=== PATIENT | male | born 1935 | race Caucasian/White ===

== ENCOUNTER 2020-02-05 11:52 | Inpatient (IN) | payer MEDICARE, SELFPAY ==
[2020-02-05] VITALS (8 sets, daily range): BP systolic 120–176; BP diastolic 51–78; PULSE 33–48; RESP 16–20; TEMP 36.4–36.8; O2SAT 95–98; BMI 28.6
--- NOTE | 2020-02-05 | ECHO_ITS ---
Patient Info Name: Torito Mcleod Age: 85 years : 1935 Gender: Male Ht: 72 in Wt: 214 lbs BSA: 2.24 m2 HR: 40 bpm BP: 168 / 70 mmHg Heart Rhythm: Bradycardia, Atrial Fibrillation Technical Quality: Good Exam Date: 02/05/2020 3:29 PM Exam Location: [facility] Pulmonary Patient Status: Inpatient Admit Date: 02/05/2020 Staff Ordering Physician: Faustino Grimes MD Seat Maker: Ab Lyle NIYA Attending Provider: Josh Griffin MD Exam Type: CA echo dop color flow w con Study Info Indications I50.9 - Heart failure, unspecified Complete two-dimensional, color flow and Doppler transthoracic echocardiogram is performed. Contrast/Agitated Saline Contrast/Ag. Saline: Definity Amount: 3.00 ml Administered By: Eugenio Kennedy RN Existing IV Access: Yes History/Risk Factors Bradycardia, Afib, CHF; CAD s/p CABG 2000, HTN, edema. Summary 1. Left ventricular chamber dimension is moderately enlarged. 2. Left ventricular systolic function is moderately reduced, estimated at 35-40%. 3. There is mildly increased left ventricular wall thickness. 4. Left ventricular septal wall motion is abnormal with septal motion related to bundle branch block. 5. The left ventricular diastolic function is grade II diastolic dysfunction. 6. The inferior wall, inferoseptal wall, basal anteroseptal, mid anteroseptal, basal inferolateral wall, and mid inferolateral wall are hypokinetic. 7. Left atrial chamber dimension is moderately enlarged. 8. Right atrial chamber dimension is mildly enlarged. 9. There is mild aortic valve calcification. 10. There is mild mitral valve regurgitation. 11. Severe pulmonary hypertension, estimated pulmonary arterial systolic pressure is 69 mmHg. 12. There is mild tricuspid valve regurgitation. 13. There is mild pulmonic regurgitation. Left Ventricle Left ventricular chamber dimension is moderately enlarged. Left ventricular systolic function is moderately reduced, estimated at 35-40%. There is mildly increased left ventricular wall thickness. Left ventricular septal wall motion is abnormal with septal motion related to bundle branch block. The left ventricular diastolic function is grade II diastolic dysfunction. The inferior wall, inferoseptal wall, basal anteroseptal, mid anteroseptal, basal inferolateral wall, and mid inferolateral wall are hypokinetic. All other cancino appear normal. Right Ventricle Right ventricular chamber dimension is normal. Right ventricular systolic function is normal. Left Atria Left atrial chamber dimension is moderately enlarged. Right Atria Right atrial chamber dimension is mildly enlarged. Atrial Septum Intact interatrial septum visualized by color flow imaging. Aortic Valve The aortic valve is trileaflet. There is no aortic valve stenosis. There is trace aortic valve regurgitation. There is mild aortic valve calcification. Pulmonic Valve The pulmonic valve is normal. There is no pulmonic valve stenosis. There is mild pulmonic regurgitation. Mitral Valve The mitral valve has thickened leaflets. There is no mitral valve stenosis. There is mild mitral valve regurgitation. Tricuspid Valve The tricuspid valve leaflets are normal. There is no significant tricuspid valve stenosis. There is mild tricuspid valve regurgitation. Severe pulmonary hypertension, estimated pulmonary arterial systolic pressure is 69 mmHg. Siri
--- NOTE | ~2020-02-05 | XR_ITS ---
EXAMINATION: XR chest 1V portable DATE: 02/08/2020 15:36 INDICATION: Pacemaker insertion. TECHNIQUE: A single frontal view of the chest was obtained on 2 radiographs. COMPARISON: Chest 2 views 02/05/2020 FINDINGS: There are small pleural effusions. There are airspace opacities at the lung bases. No pneum othorax. Cardiomegaly is noted. Median sternotomy wires and mediastinal surgical clips are seen, like ly from prior coronary artery bypass grafting. There is a left chest pacer with lead in right ventric le. IMPRESSION: 1. Stable small pleural effusions. 2. Stable airspace opacities at the lung bases, consistent with atelectasis or less likely pneumonia. 3. Cardiomegaly. Reviewed, dictated and finalized at location B.
--- NOTE | ~2020-02-05 | US_ITS ---
EXAMINATION: US venous doppler [facility] DATE: 02/06/2020 12:08 INDICATION: Lower limb swelling TECHNIQUE: Grayscale ultrasound images without and with compression and Doppler ultrasound images of the bilateral lower extremity veins were obtained. COMPARISON: None. FINDINGS: The visualized portions of right common femoral vein, profunda (deep) femoral vein, femoral vein, pop liteal vein, posterior tibial veins, peroneal veins, gastrocnemius vein and greater saphenous vein ou tflow are patent. The visualized portions of left common femoral vein, profunda femoral vein, femoral vein, popliteal v ein, posterior tibial veins, peroneal veins, gastrocnemius vein and greater saphenous vein outflow ar e patent. IMPRESSION: 1. No deep venous thrombosis in either lower limb. Reviewed, dictated and finalized at location A.
--- NOTE | ~2020-02-05 | XR_ITS ---
XR chest 2V DATE: 02/09/2020 14:54 INDICATION: Pacemaker insertion TECHNIQUE: AP and lateral views on 02/09/2020 at 1451 hours COMPARISON: 02/08/2020 portable AP chest at 1529 hours FINDINGS: There is a left-sided pacemaker device with right ventricular lead. Status post sternotomy. Cardiomegaly. Aortic calcification and unfolding. Minimal basilar infiltrates and small pleural effus ions are suggested. No pulmonary vascular congestion or pneumothorax. IMPRESSION: Cardiomegaly Minimal pleural effusions Minimal basilar infiltrate or atelectasis Left-sided pacemaker device; no pneumothorax Reviewed, dictated and finalized at location A.
--- NOTE | ~2020-02-05 | XR_ITS ---
EXAMINATION: XR chest 2V DATE: 02/05/2020 12:34 INDICATION: Shortness of breath. TECHNIQUE: Frontal and lateral views of the chest were obtained. COMPARISON: Chest 2 views 03/20/2016 FINDINGS: There are small pleural effusions. There is mild atelectasis at the lung bases. No pneumoth orax. Cardiomegaly is noted. Median sternotomy wires and mediastinal surgical clips are seen, likely from prior coronary artery bypass grafting. IMPRESSION: 1. Small pleural effusions. 2. Mild atelectasis at the lung bases. 3. Cardiomegaly. Reviewed, dictated and finalized at location B.
--- NOTE | 2020-02-05 12:05 | ECG_ITS ---
Measurements Intervals [place] Rate: 57 P: ME: 0 QRS: -66 QRSD: 150 T: 122 QT: 423 QTc: 412 Interpretive Statements ATRIAL FIBRILLATION WITH SLOW VENTRICULAR RESPONSE VENTRICULAR PREMATURE COMPLEX LEFT BUNDLE BRANCH BLOCK INFERIOR INFARCT, AGE INDETERMINATE BASELINE WANDER- I, II, III, AVR, AVF, V1-V2, V6 ABNORMAL ECG Electronically Signed On 02-05-2020 12:34:02 CDT by Bro Addison D.O.
--- NOTE | 2020-02-05 12:27 | ED.SOB ---
HPI - SOB/Dyspnea General Chief Complaint: Shortness of Breath/Dyspnea Stated Complaint: sob Time Seen by Provider: 02/05/20 12:08 Source: patient Mode of arrival: ambulatory Limitations: no limitations History of Present Illness HPI Narrative: This patient is an 85 year old male who presents for evaluation of shortness of breath x 1 month. He reports has had constant shortness of breath and he finally came to ER because he is having difficulty sleeping. He is unable to sleep laying flat x 2 weeks. His daughter also noticed swelling to his legs yesterday. He is unsure if he has congestive heart failure but he does take lasix twice a day. He is unsure of history of atrial fibrillation or arrhythmia but he takes digoxin. He also burning midsternal chest pain earlier today but he denies chest pain now. Related Data Home Medications Medication Instructions Recorded Confirmed buspirone 10 mg PO BID 02/05/20 02/05/20 carvedilol 25 mg PO BID 02/05/20 02/05/20 clopidogrel 75 mg PO DAILY 02/05/20 02/05/20 digoxin 250 mcg PO DAILY 02/05/20 02/05/20 furosemide 20 mg PO BID 02/05/20 02/05/20 hydralazine 25 mg PO BID 02/05/20 02/05/20 metformin 1,000 mg PO BID 02/05/20 02/05/20 niacin 500 mg PO BID 02/05/20 02/05/20 simvastatin 80 mg PO DAILY 02/05/20 02/05/20 Allergies Allergy/AdvReac Type Severity Reaction Status Date / Time No Known Drug Allergies Allergy Verified 02/05/20 18:11 Review of Systems Review of Systems: All systems reviewed & are unremarkable except as noted in HPI and below Constitutional: Constitutional: Denies chills, Denies fever(s) and Reports weakness Cardiovascular: Cardiovascular: Reports chest pain, Denies rapid heart rate, Denies radiating jaw, neck or arm pain and Denies slow heart rate Respiratory: Respiratory: Denies cough, Reports dyspnea and Denies wheezing Gastrointestinal: Gastrointestinal: Denies abdominal pain, Denies diarrhea, Denies nausea and Denies vomiting PMFSH Past Medical History Medical History (Updated 02/05/20 @ 21:49 by Yolande Vance MD) Coronary artery disease With history of myocardial infarction in 1999. Status post 4 vessel CABG. Gastroesophageal reflux disease Hypertension Normocytic anemia Pre-diabetes Surgical History Surgical History (Updated 02/05/20 @ 18:06 by Steph Bentley PA-C) History of cataract extraction History of coronary artery bypass graft (~02/2000) BROOKS to LAD, SVG to RCA, SVG to circumflex. History of coronary artery stent placement Left circumflex. Family History Family History Father Renal cell carcinoma Social History Social History Social History: The patient is And lives in his own home in [place]. he has 3 children. He is a lifelong nonsmoker. He drinks perhaps 1 beer a week. No illicit substance use. He designates his daughter, Lynn Merchant, as his surrogate decision maker and he wishes to be a full code. Smoking status: Never smoker Alcohol intake: current Drinks per week: 3 Substance use: never Substance use type: does not use Gender identity (if verbalized by the patient): Male Sexual Orientation (if Verbalized by the Patient): Straight or Heterosexual Spiritual care concerns: No Exam Const: General: no acute distress (but looks like he does not feel well) and alert Orientation/consciousness: patient oriented x3 HENMT: Head: normocephalic and atraumatic Face and sinus: face symmetric Mouth: Yes lip normal and Yes moist mucous membranes Eyes: EOM: EOMs intact bilaterally Neck: Neck: no lymphadenopathy Chest: Chest palpation & inspection: normal inspection of the chest Resp: Effort & Inspection: normal respiratory effort and no retractions Auscultation: clear to auscultation bilaterally Cardio: Rate: bradycardic Rhythm: abnormal rhythm irregul
[2020-02-05 12:30] LABS: Basophils Percent Auto 0.2 % (0.2-1.2); Eosinophils Absolute Auto 0.1 K/mm3 (0-0.3); Eosinophils Percent Auto 0.7 % (0-4.4); Hematocrit 39.6 % (42.0-52.0); Hemoglobin 12.6 g/dL (14.0-18.0); Immature Granulocyte Absolute 0.02 K/mm3 (0.00-0.031); Immature Granulocyte Percent A 0.2 % (0-0.5); Lymphocytes Absolute Auto 1.15 K/mm3 (0.9-3.2); Lymphocytes Percent Auto 13.1 % (18.3-44.2); Mean Corpuscular HGB Conc 31.8 g/dl (32-36); Mean Corpuscular Hemoglobin 28.3 pg (26-34); Mean Corpuscular Volume 88.8 fl (80-100); Mean Platelet Volume 12.7 fl (7.4-10.4); Monocytes Absolute Auto 0.8 K/mm3 (0.1-0.6); Monocytes Percent Auto 8.5 % (2.6-8.5); Neutrophils Absolute Auto 6.8 K/mm3 (1.3-6.7); Neutrophils Percent Auto 77.3 % (45.5-73.1); Platelet Count Result 134 k/mm3 (150-375); Red Blood Count 4.46 M/mm3 (4.6-6.20); Red Cell Distribution Width 15.4 % (11.5-14.5); White Blood Count 8.8 K/mm3 (4.5-10.0)
[2020-02-05 12:47] LABS: Anion Gap 14 mmol/L (8-16); Blood Urea Nitrogen 43 mg/dL (9-20); Carbon Dioxide 23 mmol/L (22-30); Chloride 100 mmol/L (98-107); Estimated CRCL calculation 38 ml/min; Estimated Glomerular Filt Rate 48; Glucose 123 mg/dL (75-110); Sodium 137 mmol/L (137-145)
[2020-02-05 12:57] LABS: Alanine Aminotransferase 22 U/L (4-50); Albumin Level 4.3 g/dL (3.5-5.1); Alkaline Phosphatase 44 U/L (38-126); Aspartate Amino Transferase 39 U/L (17-59); Bilirubin,Total 1.2 mg/dL (0.2-1.3)
[2020-02-05 13:10] LABS: INR 1.2; Prothrombin Time 15.3 Seconds (11.1-14.7)
[2020-02-05 13:13] LABS: Digoxin 1.4 ng/mL (0.8-2.0); NT Pro B Type Natriuretic Pept 6610 PG/ML (5-100)
[2020-02-05] MEDS: FUROSEMIDE INJ 40 MG/4 ML VIAL IV PUSH (14:37)
--- NOTE | 2020-02-05 14:43 | WPDCNINT ---
Assessment and Plan Assessment and plan (1) Bradycardia: Code(s): R00.1 - Bradycardia, unspecified Status: Acute Assessment and Plan: patient in slow AFib at this point although blood pressure is acceptable digoxin level is in therapeutic range hold digoxin and beta-darion monitor in ICU (2) Atrial fibrillation: Code(s): I48.91 - Unspecified atrial fibrillation Status: Acute Assessment and Plan: hold beta-darion and digoxin due to bradycardia Lovenox and Plavix (3) CHF (congestive heart failure): Code(s): I50.9 - Heart failure, unspecified Status: Acute Assessment and Plan: Lasix IV to be given in ED not in respiratory distress at this time check echocardiogram (4) NSTEMI (non-ST elevated myocardial infarction): Code(s): I21.4 - Non-ST elevation (NSTEMI) myocardial infarction Status: Acute Assessment and Plan: cardiology consult serial troponin Plavix, statin, Lovenox echocardiogram hold beta-darion due to bradycardia (5) CAD (coronary artery disease): Code(s): I25.10 - Atherosclerotic heart disease of [place] coronary artery without angina pectoris Status: Acute Assessment and Plan: history of CABG and PCI in the past further evaluation as per Cardiology (6) Elevated serum creatinine: Code(s): R79.89 - Other specified abnormal findings of blood chemistry Status: Acute Assessment and Plan: creatinine is slightly elevated from normal range baseline unknown monitor urine output, electrolytes and creatinine patient will be him Lasix due to volume overload Additional Plan DVT prophylaxis - Lovenox Patient and his daughter updated at bedside Total Critical Care Time - 35 minutes Due to a high probability of clinically significant, life threatening deterioration, the patient required my highest level of preparedness to intervene emergently and I personally spent this critical care time directly and personally managing the patient. This critical care time included obtaining a history; examining the patient; pulse oximetry; ordering and review of studies; arranging urgent treatment with development of a management plan; evaluation of patient's response to treatment; frequent reassessment; and discussions with other providers. It was exclusive of separately billable procedures and treating other patients and teaching time. Please see Assessment and Plan section and the rest of the note for further information on patient assessment and treatment Monitoring Engineer Consult Note Consult date: 02/05/20 Time Seen: 14:30 HPI: Torito Mcleod is a 85 year old male With past medical history of coronary artery disease status post CABG and PCI, atrial fibrillation who presented today to ED with chief complaint of shortness of breath since December. Shortness of breath was associated with exertion and lying flat in bed. Symptoms have been intermittently persistent till today. He also complained of PND Yesterday while laying in bed he had burning sensation in his chest which was 5/10 severe and was associated with numbing on of his left arm. symptoms resolved by itself without any intervention but later reoccurred today. Patient denies fever, cough, nausea vomiting, abdominal pain, dysuria. hematuria, diarrhea, headache or constipation. no change in sensation was smell or taste. no Sick contacts. his CABG was in 2000 and had a PCI in 2001. he does not remember when was his last stress test or echocardiogram In ED patient was found to be in slow AFib with heart rate in 30s to 40s although with stable blood pressure hence I was consulted Review of Systems Review of Systems: All systems reviewed & are unremarkable except as noted in HPI and below ( HPI) [facility] Past Medical History Medical History (Updated 02/05/20 @ 14:51 by Faustino Grimes MD) Atrial fibrillation CAD (coronary artery disease) H
--- NOTE | 2020-02-05 15:00 | PM.IMHP ---
H&P: HPI History of Present Illness Date/Time: 02/05/20 15:00 Chief complaint: Shortness of breath. Narrative: Torito Mcleod is a pleasant 85-year-old male with a history of coronary artery disease status post CABG, hypertension, hyperlipidemia, and pre diabetes who presented to the emergency department earlier this afternoon from home for evaluation of shortness of breath. For roughly 1 months time he has had progressive over shortness of breath. With further questioning, it sounds like he has been experiencing orthopnea and paroxysmal nocturnal dyspnea. He spoke with his primary care provider several weeks ago with reports of feelings of anxiety and palpitations at nighttime, for which he was prescribed buspirone. He also reports increasing lower extremity edema since Tuesday as well as a 5 pound weight gain. He has occasional lightheadedness /dizziness but denies near-syncope. With further questioning, he has had some mild burning discomfort, is unclear whether not that is in his epigastrium or in the chest. He has not had exertional chest pain or pleuritic pain but he notes the pain is similar to previous episodes of angina. No nausea, vomiting, or sweats. He has no known history of congestive heart failure , sleep apnea, or thyroid disease. No recent travel or history of venousthromboembolism. Review of Systems Review of Systems: Narrative: Twelve systems were reviewed with pertinent positives and negatives as per HPI no fever, chills, or sweats. He denies recent travel and sick contacts. No diarrhea or constipation. He denies dysuria, hematuria, urgency, and frequency. He also denies symptoms of benign prostatic hyperplasia. Except as documented, all other systems were reviewed and are negative. [facility] Past Medical History Medical History (Updated 02/05/20 @ 18:06 by Steph Bentley PA-C) Coronary artery disease With history of myocardial infarction in 1999. Status post 4 vessel CABG. Gastroesophageal reflux disease Hypertension Normocytic anemia Pre-diabetes Surgical History Surgical History (Updated 02/05/20 @ 18:06 by Steph Bentley PA-C) History of cataract extraction History of coronary artery bypass graft (~02/2000) BROOKS to LAD, SVG to RCA, SVG to circumflex. History of coronary artery stent placement Left circumflex. Family History Family History Father Renal cell carcinoma Social History Social History Social History: The patient is And lives in his own home in [place]. he has 3 children. He is a lifelong nonsmoker. He drinks perhaps 1 beer a week. No illicit substance use. He designates his daughter, Lynn Merchant, as his surrogate decision maker and he wishes to be a full code. Smoking status: Never smoker Alcohol intake: current Drinks per week: 3 Substance use: never Substance use type: does not use Gender identity (if verbalized by the patient): Male Sexual Orientation (if Verbalized by the Patient): Straight or Heterosexual Spiritual care concerns: No Meds Home Medications and Allergies Home Medications Medication Instructions Recorded Confirmed Type buspirone 10 mg PO BID 02/05/20 02/05/20 History carvedilol 25 mg PO BID 02/05/20 02/05/20 History clopidogrel 75 mg PO DAILY 02/05/20 02/05/20 History digoxin 250 mcg PO DAILY 02/05/20 02/05/20 History furosemide 20 mg PO BID 02/05/20 02/05/20 History hydralazine 25 mg PO BID 02/05/20 02/05/20 History metformin 1,000 mg PO BID 02/05/20 02/05/20 History niacin 500 mg PO BID 02/05/20 History simvastatin 80 mg PO DAILY 02/05/20 02/05/20 History Allergies Allergy/AdvReac Type Severity Reaction Status Date / Time NKDA Allergy Unknown Other Uncoded 02/05/20 15:02 Vital Signs Vital Signs - 24 hr 02/05/20 12:06 02/05/20 12:36 02/05/20 12:38 Temperature 98.3 F Pulse Rate
[2020-02-05] MEDS: ENOXAPARIN 100 MG/ML SYRINGE 95 MG SUB-Q (16:47)
[2020-02-05] MEDS: CLOPIDOGREL BISULFATE 75 MG TABLET PO (16:47)
--- NOTE | 2020-02-05 16:52 | PC.NURSE ---
This patient, Torito Mcleod, was admitted to Intensive Care Unit-11 on 02/05/20 @ 1630. Monitors applied. Patient/family oriented to hospital policies and general routines including ID bracelet, bed and alarms, visiting hours, pain management, procedures, bathroom and other care routines, personal items, smoking policy, room service/diet, and visiting hours. Valuables list has been completed. Information on how to activate the Rapid Response Team has been discussed. Patient/Family are encouraged to report perceived risks to care and to ask questions if they do not understand what they are told or what they should do.
[2020-02-05 17:06] LABS: Glucose Point of Care 113 (65-105)
[2020-02-05 17:11] LABS: Troponin I 0.042 ng/mL (0.000-0.034)
--- NOTE | 2020-02-05 17:39 | PM.CNCAR ---
Assessment and Plan Assessment and plan (1) Elevated troponin: Code(s): R79.89 - Other specified abnormal findings of blood chemistry Status: Acute Assessment and Plan: likely related to CHF but cannot exclude true non-STEMI at this point. Continue to trend troponins. Regardless he does have some features of angina which likely need to be investigated in the via an angiogram or stress test. Continue clopidogrel, statin. (2) Acute exacerbation of congestive heart failure: Code(s): I50.9 - Heart failure, unspecified Status: Acute Assessment and Plan: Likely systolic in nature. 2D echocardiogram Doppler was ordered. Hold carvedilol because bradycardia. I am hopeful that with increased heart rate, his CHF symptoms may improve. Diurese as needed and he has already received furosemide in the ER and urine output will be monitored. Will initiate him at 40 mg IV daily. Continue hydralazine (3) CAD (coronary artery disease): Code(s): I25.10 - Atherosclerotic heart disease of [place] coronary artery without angina pectoris Status: Acute Assessment and Plan: continue meds as above. (4) Bradycardia: Code(s): R00.1 - Bradycardia, unspecified Status: Acute Assessment and Plan: Hold carvedilol and discontinue digoxin completely. Repeat EKG in the morning. Use Digibind if needed. History of Present Illness History of Present Illness Consult date/time: 02/05/20 17:39 Requesting physician: Yolande Vance MD Consult reason: Other ( bradycardia, shortness of breath) Reason For Visit: Shortness of breath. Narrative: reason for admission, shortness of breath, chest pain, bradycardia Date of service 02/05/2020: History: patient is an 85-year-old male patient Dr. Gomes was a history of remote coronary artery disease and bypass grafting in 1999. He had a BROOKS to the LAD and SVG created to the RCA. He has he has subsequently had further this work performed in 2000 with other stents. In 2009 he was found to have a distal circumflex which was totally occluded but patent grafts. His ejection fraction has been severely diminished in the past but and echocardiogram in 2016 found that his ejection fraction was 50%. When he last saw Dr. Gomes in the office in July he was complaining of some shortness of breath at night and an echocardiogram was offered but the patient declined further workup at that time. He was trying to make it to his appointment which was this but due to persistent symptoms he came to the ER for further workup evaluation. Patient states that he has been having constant chest pain which he describes as burning for the past week. In fact he states that his symptoms do come and go and will last for 30 minutes at a time but today's episode has been unrelenting. It does not radiate to his arm back neck or jaw. He has not taken nitroglycerin. It is reminiscent of his previous angina. He also describes shortness of breath all the time . This has been present for least the past couple of months. He does describe some paroxysmal nocturnal dyspnea and orthopnea. This has been progressively worsening as well as worsening edema. He does describe some dizziness at times which is also short lived. He denies any palpitations. Review of Systems Review of Systems: All systems reviewed & are unremarkable except as noted in HPI and below Constitutional: Constitutional: Reports weakness Eyes: Eyes: Denies blurry vision ENT: Reports Normal hearing present Cardiovascular: Cardiovascular: Reports chest pain, Reports pedal edema and Reports leg edema Respiratory: Respiratory: Reports dyspnea Gastrointestinal: Gastrointestinal: Denies abdominal pain Genitourinary: Genitourinary: Denies dysuria Musculoskeletal: Musculoskeletal: Denies neck pain Integumentary/Breasts: Skin/Breast: Denies dry skin Neurologic: Denies headache(s)
[2020-02-05 18:18] LABS: Hemoglobin A1C 6.4 % (<5.7)
[2020-02-05 18:27] LABS: Free T4 Free Thyroxine Reflex 1.65 ng/dL (0.78-2.19)
[2020-02-05] MEDS: busPIRone HCL 10 MG TABLET PO (19:14)
[2020-02-05] MEDS: hydrALAZINE HCL 25 MG TABLET PO (19:15)
[2020-02-05 20:40] LABS: Iron 54 ug/dL (49-181)
[2020-02-05 20:49] LABS: Percent Iron Saturation 19 % (20-50)
[2020-02-05 21:05] LABS: Total Triiodothyronine (T3) 1.25 NG/ML (0.97-1.69)
[2020-02-05 21:09] LABS: Glucose Point of Care 194 (65-105)
[2020-02-05 21:40] LABS: Folic Acid 12.7 ng/mL (2.76->20)
[2020-02-05 21:41] LABS: Troponin I 0.047 ng/mL (0.000-0.034)
[2020-02-06] VITALS (12 sets, daily range): BP systolic 130–175; BP diastolic 44–107; PULSE 30–66; RESP 16–90; TEMP 35.8–36.9; O2SAT 90–98
[2020-02-06] MEDS: ENOXAPARIN 100 MG/ML SYRINGE 95 MG SUB-Q ×2 (05:54→18:05)
[2020-02-06 06:40] LABS: Hematocrit 36.5 % (42.0-52.0); Hemoglobin 11.9 g/dL (14.0-18.0); Mean Corpuscular HGB Conc 32.6 g/dl (32-36); Mean Corpuscular Hemoglobin 28.4 pg (26-34); Mean Corpuscular Volume 87.1 fl (80-100); Mean Platelet Volume 12.1 fl (7.4-10.4); Platelet Count Result 125 k/mm3 (150-375); Red Blood Count 4.19 M/mm3 (4.6-6.20); Red Cell Distribution Width 15.4 % (11.5-14.5); White Blood Count 7.4 K/mm3 (4.5-10.0)
[2020-02-06 06:52] LABS: Alanine Aminotransferase 18 U/L (4-50); Albumin Level 3.9 g/dL (3.5-5.1); Alkaline Phosphatase 35 U/L (38-126); Anion Gap 11 mmol/L (8-16); Aspartate Amino Transferase 25 U/L (17-59); Bilirubin,Total 1.4 mg/dL (0.2-1.3); Blood Urea Nitrogen 37 mg/dL (9-20); Calcium 9.1 mg/dL (8.4-10.2); Carbon Dioxide 25 mmol/L (22-30); Chloride 102 mmol/L (98-107); Estimated CRCL calculation 48 ml/min; Estimated Glomerular Filt Rate > 60; Glucose 134 mg/dL (75-110); Magnesium 1.9 mg/dL (1.6-2.3); Potassium 4.3 mmol/L (3.4-5.0); Sodium 138 mmol/L (137-145)
[2020-02-06 07:06] LABS: Troponin I 0.057 ng/mL (0.000-0.034)
[2020-02-06 07:19] LABS: Digoxin 0.8 ng/mL (0.8-2.0)
--- NOTE | 2020-02-06 07:20 | WPDINTPN ---
Progress Note: A&P Assessment and Plan (1) Bradycardia: Code(s): R00.1 - Bradycardia, unspecified Status: Acute Assessment and Plan: patient in slow AFib at this point although blood pressure is acceptable and heart rate is slightly better than yesterday heart rate was in 30s yesterday at the time of admission and at this time is in 50s to 60s digoxin level decreased continue to hold hold digoxin and beta-darion continue to monitor in ICU may need a pacemaker (2) Atrial fibrillation: Code(s): I48.91 - Unspecified atrial fibrillation Status: Acute Assessment and Plan: continue to hold beta-darion and digoxin due to bradycardia continue Lovenox and Plavix (3) CHF (congestive heart failure): Code(s): I50.9 - Heart failure, unspecified Status: Acute Assessment and Plan: Echo showed systolic and diastolic congestive heart failure along with pulmonary hypertension will continue with Lasix IV and will give b.i.d. dosing today Not in respiratory distress at this time ECHO Summary 1. Left ventricular chamber dimension is moderately enlarged. 2. Left ventricular systolic function is moderately reduced, estimated at 35-40%. 3. There is mildly increased left ventricular wall thickness. 4. Left ventricular septal wall motion is abnormal with septal motion related to bundle branch block. 5. The left ventricular diastolic function is grade II diastolic dysfunction. 6. The inferior wall, inferoseptal wall, basal anteroseptal, mid anteroseptal, basal inferolateral wall, and mid inferolateral wall are hypokinetic. 7. Left atrial chamber dimension is moderately enlarged. 8. Right atrial chamber dimension is mildly enlarged. 9. There is mild aortic valve calcification. 10. There is mild mitral valve regurgitation. 11. Severe pulmonary hypertension, estimated pulmonary arterial systolic pressure is 69 mmHg. 12. There is mild tricuspid valve regurgitation. 13. There is mild pulmonic regurgitation. (4) NSTEMI (non-ST elevated myocardial infarction): Code(s): I21.4 - Non-ST elevation (NSTEMI) myocardial infarction Status: Acute Assessment and Plan: patient was seen by Cardiology serial troponin have remained essentially flat continue Plavix, statin, Lovenox echocardiogram reviewed continue to hold beta-darion due to bradycardia stress test versus cardiac catheterization as per Cardiology (5) CAD (coronary artery disease): Code(s): I25.10 - Atherosclerotic heart disease of [place] coronary artery without angina pectoris Status: Acute Assessment and Plan: history of CABG and PCI in the past further evaluation as per Cardiology (6) Elevated serum creatinine: Code(s): R79.89 - Other specified abnormal findings of blood chemistry Status: Acute Assessment and Plan: creatinine is in normal range today appears to be patient's baseline monitor urine output, electrolytes and creatinine patient will be him Lasix due to volume overload (7) Edema leg: Code(s): R60.0 - Localized edema Status: Acute Assessment and Plan: likely from heart failure but will check Dopplers to rule out any DVT patient is on Lovenox at this time Additional Plan DVT prophylaxis - Lovenox Updated patient and answered his questions. Patient is full code Total Critical Care Time - 30 minutes Due to a high probability of clinically significant, life threatening deterioration, the patient required my highest level of preparedness to intervene emergently and I personally spent this critical care time directly and personally managing the patient. This critical care time included obtaining a history; examining the patient; pulse oximetry; ordering and review of studies; arranging urgent treatment with development of a management plan; evaluation of patient's response to treatment; frequent reassess
[2020-02-06 08:08] LABS: Glucose Point of Care 150 (65-105)
[2020-02-06] MEDS: CLOPIDOGREL BISULFATE 75 MG TABLET PO (09:01)
[2020-02-06] MEDS: busPIRone HCL 10 MG TABLET PO ×2 (09:01→18:05)
[2020-02-06] MEDS: hydrALAZINE HCL 25 MG TABLET PO (09:01)
[2020-02-06] MEDS: SIMVASTATIN 20 MG TABLET 80 MG PO (09:01)
[2020-02-06] MEDS: FUROSEMIDE INJ 40 MG/4 ML VIAL IV PUSH ×2 (09:02→15:42)
--- NOTE | 2020-02-06 09:33 | ECG_ITS ---
Measurements Intervals [place] Rate: 49 P: WI: 0 QRS: -64 QRSD: 140 T: 91 QT: 462 QTc: 419 Interpretive Statements ATRIAL FIBRILLATION WITH SLOW VENTRICULAR RESPONSE VENTRICULAR PREMATURE COMPLEXES LEFT BUNDLE BRANCH BLOCK INFERIOR INFARCT OR DUE TO LBBBB BASELINE WANDER- I, II ABNORMAL ECG Electronically Signed On 02-06-2020 16:21:36 CDT by Bro Addison D.O.
--- NOTE | 2020-02-06 09:35 | PM.PNCARD ---
Progress Note: A&P Additional Plan elderly gentleman with: Ischemic cardiomyopathy ejection fraction 35-40% by echo. Patient presenting with shortness of breath appears to be in atrial fibrillation with slow ventricular response. Will recheck a 12 lead ECG this morning to verify that. Appropriately digoxin has been stopped and his beta-darion has been stopped as well. As he is hypertensive am going to start ECTOR-inhibitor therapy today in the form of lisinopril. As digoxin washes out we may be able to reintroduce some carvedilol as well. Regarding his ischemic disease a follow-up angiogram should be recommended given the fact that he has complaints of ischemic pain for at least several weeks to a month or so leading up to this. Once the patient is on a resume a reasonable medical regimen angiography and vein graft as well as mammary graft angiography will be recommended he understands this and is agreeable. Since he is still rather bradycardic we will keep him in the ICU today. Mykel Gomes MD [facility] Subjective Date/time seen: 02/06/20 09:35 Interval history: Follow-up visit in this 85-year-old man with shortness of breath. Patient has underlying coronary artery disease previous surgical and percutaneous revascularization. Moderate left ventricular systolic dysfunction by echo and concerning bradycardia on presentation. Because of bradycardia carvedilol and digoxin have been discontinued. Patient also describes 3-4 weeks of intermittent retrosternal burning discomfort concerning for myocardial ischemia. This morning patient appears to be comfortable reports that he is still short of breath with modest activity such as just moving around in the bed. Exam Const: General: comfortable and no acute distress HENMT: Mouth: Yes dry mucous membranes Eyes: Sclera: sclerae normal Pupils: Equal, round and reactive pupils present Neck: Neck: supple and no JVD Thyroid: thyroid normal Resp: Effort & Inspection: normal respiratory effort Other: Scant crackles at the bases Cardio: Rhythm: abnormal rhythm irregularly irregular GI: Auscultation: normal bowel sounds Skin: General skin exam: normal color Neuro: Cognition (Neuro): normal cognition Extrem: General: normal to inspection Objective Data Vital Signs Vital Signs: Vital Signs - 24 hr 02/05/20 12:06 02/05/20 12:36 02/05/20 12:38 Temperature 36.8 C Pulse Rate 48 L 42 L 43 L Respiratory Rate 18 20 Blood Pressure 176/63 H 134/62 Pulse Oximetry 96 96 02/05/20 14:45 02/05/20 15:12 02/05/20 18:00 Temperature 36.4 C L Pulse Rate 40 L 45 L 46 L Respiratory Rate 20 20 16 Blood Pressure 154/78 H 124/51 L Pulse Oximetry 95 97 96 02/05/20 20:00 02/05/20 22:00 02/06/20 00:00 Temperature 36.4 C L Pulse Rate 33 L 43 L 57 L Respiratory Rate 18 19 16 Blood Pressure 120/54 L 163/70 H 154/81 H Pulse Oximetry 95 98 98 02/06/20 02:00 02/06/20 04:00 02/06/20 06:00 Temperature 36.6 C Pulse Rate 51 L 46 L 30 L Respiratory Rate 24 H 22 H 16 Blood Pressure 166/59 H 160/61 H 165/55 H Pulse Oximetry 91 97 96 02/06/20 08:00 Temperature Pulse Rate 30 L Respiratory Rate Blood Pressure Pulse Oximetry Intake/Output Intake/Output: Intake & Output 02/03/20 02/04/20 02/05/20 02/06/20 23:59 23:59 23:59 23:59 Intake Total 240 Output Total 325 600 Balance -85 -600 Meds/Results Medications: Active Medications Generic Name Dose Route Start Last Admin Trade Name Freq PRN Reason Stop Dose Admin Buspirone HCl 10 mg 02/05/20 17:00 02/06/20 09:01 Buspar PO 10 mg BID RON Administration Clopidogrel Bisulfate 75 mg 02/06/20 09:00 02/06/20 09:01 Plavix PO 75 mg DAILY RON Administration Dextrose 12.5 gm 02/05/20 17:56 Dextrose 50% Syringe IV PUSH PRN PRN Hypoglycemia Protocol Enoxaparin Sodium 95 mg 02/05/20 18:00 02/06/20 05:54 Lovenox SUB-Q 95 mg Q12H RON Administra
[2020-02-06] MEDS: lisinopriL 5 MG TABLET PO (11:24)
[2020-02-06 12:10] LABS: Glucose Point of Care 157 (65-105)
--- NOTE | 2020-02-06 16:20 | P.PNIM_ITS ---
Progress Note: A&P Assessment and Plan (1) Acute exacerbation of congestive heart failure: Code(s): I50.9 - Heart failure, unspecified Status: Acute Assessment and Plan: * Patient will be diuresed with close monitoring of his volume status and renal function. * Echocardiogram returned with EF 35-40%, wall motion abnormality, and pulmonary hypertension 69. * Check TSH normal. * cardiology following. (2) Bradycardia: Code(s): R00.1 - Bradycardia, unspecified Status: Acute Assessment and Plan: * slow atrial fibrillation at this time. * Digoxin and carvedilol both on hold. patient is uncertain as to why he is on digoxin. * Continue to monitor closely on telemetry; his blood pressures have been stable * full anticoagulation with Lovenox per valet parking attendant. (3) Elevated troponin: Code(s): R79.89 - Other specified abnormal findings of blood chemistry Status: Acute Assessment and Plan: * Troponins have been flat , perhaps due to CHF. * Will continue to trend , cardiology has seen and will proceed with ischemia evaluation later (4) Renal failure: Code(s): N19 - Unspecified kidney failure Status: Acute Assessment and Plan: * Request records from primary care provider to help establish baseline. * He may very well have some chronic kidney disease but could be due to poor perfusion as well. * creatinine down to 1.1 with diuresis (5) Pre-diabetes: Code(s): R73.03 - Prediabetes Status: Acute Assessment and Plan: * Metformin on hold at this time; hemoglobin A1c.6.4 * Initiate sliding scale insulin, Accu-Cheks, and hypoglycemic protocol. (6) Normocytic anemia: Code(s): D64.9 - Anemia, unspecified Status: Acute Assessment and Plan: * iron studies compatible with anemia chronic disease but B12 increased to 232 so will replace (7) Coronary artery disease: Code(s): I25.10 - Atherosclerotic heart disease of [place] coronary artery without angina pectoris Status: Acute Assessment and Plan: * Status post CABG in 1999. * Carvedilol on hold given bradycardia, continue clopidogrel and statin. * ischemia evaluation later Subjective Date/time seen: 02/06/20 16:20 Interval history: date of visit 02/05. 85-year-old with history of coronary artery disease admitted with increasing shortness breath found to be in slow AFib. Anticoagulated, beta-darion and Lanoxin have been held. Diuresed some but still feels shortness of breath. Related to cardiologists has been having chest pressure prior to shortness of breath also Exam Narrative: Exam Narrative: blood pressure 132/58 pulse 58 regular respirations 22 per minute saturating 96% on room air General: A well-developed, mildly ill-appearing elderly male in the semi- Tao position in bed in no acute distress. HEENT: . Scar Sclerae anicteric. Neck: Supple. Positive jugular venous distension. Respiratory: Lung sounds are diminished at the bases. . Cardiovascular: Irregular and bradycardic. Soft systolic murmur heard at
--- NOTE | 2020-02-06 16:20 | PM.IMPN ---
Progress Note: A&P Assessment and Plan (1) Acute exacerbation of congestive heart failure: Code(s): I50.9 - Heart failure, unspecified Status: Acute Assessment and Plan: Patient will be diuresed with close monitoring of his volume status and renal function. Echocardiogram returned with EF 35-40%, wall motion abnormality, and pulmonary hypertension 69. Check TSH normal. cardiology following. (2) Bradycardia: Code(s): R00.1 - Bradycardia, unspecified Status: Acute Assessment and Plan: slow atrial fibrillation at this time. Digoxin and carvedilol both on hold. patient is uncertain as to why he is on digoxin. Continue to monitor closely on telemetry; his blood pressures have been stable full anticoagulation with Lovenox per nitrating acid mixer. (3) Elevated troponin: Code(s): R79.89 - Other specified abnormal findings of blood chemistry Status: Acute Assessment and Plan: Troponins have been flat , perhaps due to CHF. Will continue to trend , cardiology has seen and will proceed with ischemia evaluation later (4) Renal failure: Code(s): N19 - Unspecified kidney failure Status: Acute Assessment and Plan: Request records from primary care provider to help establish baseline. He may very well have some chronic kidney disease but could be due to poor perfusion as well. creatinine down to 1.1 with diuresis (5) Pre-diabetes: Code(s): R73.03 - Prediabetes Status: Acute Assessment and Plan: Metformin on hold at this time; hemoglobin A1c.6.4 Initiate sliding scale insulin, Accu-Cheks, and hypoglycemic protocol. (6) Normocytic anemia: Code(s): D64.9 - Anemia, unspecified Status: Acute Assessment and Plan: iron studies compatible with anemia chronic disease but B12 increased to 232 so will replace (7) Coronary artery disease: Code(s): I25.10 - Atherosclerotic heart disease of [place] coronary artery without angina pectoris Status: Acute Assessment and Plan: Status post CABG in 1999. Carvedilol on hold given bradycardia, continue clopidogrel and statin. ischemia evaluation later Subjective Date/time seen: 02/06/20 16:20 Interval history: date of visit 02/05. 85-year-old with history of coronary artery disease admitted with increasing shortness breath found to be in slow AFib. Anticoagulated, beta-darion and Lanoxin have been held. Diuresed some but still feels shortness of breath. Related to cardiologists has been having chest pressure prior to shortness of breath also Exam Narrative: Exam Narrative: blood pressure 132/58 pulse 58 regular respirations 22 per minute saturating 96% on room air General: A well-developed, mildly ill-appearing elderly male in the semi-Tao position in bed in no acute distress. HEENT: . Scar Sclerae anicteric. Neck: Supple. Positive jugular venous distension. Respiratory: Lung sounds are diminished at the bases. . Cardiovascular: Irregular and bradycardic. Soft systolic murmur heard at the sternal border. Gastrointestinal: Abdomen is soft and slightly protuberant with positive bowel sounds. No guarding or rebound tenderness. Skin: Warm and dry. No rash or lesions . Extremities: He has 1 to 2+ lower extremity edema to the knees. Radial and pedal pulses intact. No calf pain or tenderness palpation. Negative Danilo sign bilaterally. Neurological: Alert. Cranial nerves 2-12 are grossly intact. Speech is clear. No facia
[2020-02-06 17:10] LABS: Glucose Point of Care 138 (65-105)
[2020-02-06] MEDS: CYANOCOBALAMIN INJ 1,000 MCG/ML VIAL 1000 MCG IM (18:05)
[2020-02-06 19:53] LABS: Glucose Point of Care 192 (65-105)
[2020-02-07] VITALS (14 sets, daily range): BP systolic 106–169; BP diastolic 48–85; PULSE 36–63; RESP 13–23; TEMP 36.4–37.1; O2SAT 95–98
[2020-02-07] MEDS: ENOXAPARIN 100 MG/ML SYRINGE 95 MG SUB-Q (05:43)
[2020-02-07 05:51] LABS: Hematocrit 38.9 % (42.0-52.0); Hemoglobin 12.7 g/dL (14.0-18.0); Mean Corpuscular HGB Conc 32.6 g/dl (32-36); Mean Corpuscular Hemoglobin 28.3 pg (26-34); Mean Corpuscular Volume 86.8 fl (80-100); Mean Platelet Volume 12.1 fl (7.4-10.4); Platelet Count Result 147 k/mm3 (150-375); Red Blood Count 4.48 M/mm3 (4.6-6.20); Red Cell Distribution Width 15.6 % (11.5-14.5); White Blood Count 8.7 K/mm3 (4.5-10.0)
[2020-02-07 06:06] LABS: Alanine Aminotransferase 20 U/L (4-50); Albumin Level 3.8 g/dL (3.5-5.1); Alkaline Phosphatase 32 U/L (38-126); Anion Gap 11 mmol/L (8-16); Aspartate Amino Transferase 29 U/L (17-59); Bilirubin,Total 1.4 mg/dL (0.2-1.3); Blood Urea Nitrogen 35 mg/dL (9-20); Calcium 9.2 mg/dL (8.4-10.2); Carbon Dioxide 27 mmol/L (22-30); Chloride 102 mmol/L (98-107); Estimated CRCL calculation 52 ml/min; Estimated Glomerular Filt Rate > 60; Glucose 129 mg/dL (75-110); Magnesium 1.9 mg/dL (1.6-2.3); Potassium 3.7 mmol/L (3.4-5.0); Sodium 140 mmol/L (137-145)
[2020-02-07 06:18] LABS: Digoxin 0.5 ng/mL (0.8-2.0)
--- NOTE | 2020-02-07 07:00 | WPDINTPN ---
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 heart rate was in 30s yesterday at the time of admission and at this time is in 50s to 60s digoxin level has decreased to subtherapeutic level continue to hold hold digoxin and beta-darion may need a pacemaker depending on cardiac catheterization results (2) Atrial fibrillation: Code(s): I48.91 - Unspecified atrial fibrillation Status: Acute Assessment and Plan: continue to hold beta-darion and digoxin due to bradycardia continue Lovenox and Plavix (3) CHF (congestive heart failure): Code(s): I50.9 - Heart failure, unspecified Status: Acute Assessment and Plan: Echo showed systolic and diastolic congestive heart failure along with pulmonary hypertension will continue with Lasix IV Not in respiratory distress at this time ECHO Summary 1. Left ventricular chamber dimension is moderately enlarged. 2. Left ventricular systolic function is moderately reduced, estimated at 35-40%. 3. There is mildly increased left ventricular wall thickness. 4. Left ventricular septal wall motion is abnormal with septal motion related to bundle branch block. 5. The left ventricular diastolic function is grade II diastolic dysfunction. 6. The inferior wall, inferoseptal wall, basal anteroseptal, mid anteroseptal, basal inferolateral wall, and mid inferolateral wall are hypokinetic. 7. Left atrial chamber dimension is moderately enlarged. 8. Right atrial chamber dimension is mildly enlarged. 9. There is mild aortic valve calcification. 10. There is mild mitral valve regurgitation. 11. Severe pulmonary hypertension, estimated pulmonary arterial systolic pressure is 69 mmHg. 12. There is mild tricuspid valve regurgitation. 13. There is mild pulmonic regurgitation. (4) NSTEMI (non-ST elevated myocardial infarction): Code(s): I21.4 - Non-ST elevation (NSTEMI) myocardial infarction Status: Acute Assessment and Plan: patient was seen by Cardiology serial troponin have remained essentially flat continue Plavix, statin, Lovenox echocardiogram reviewed continue to hold beta-darion due to bradycardia cardiac catheterization planned but not schedule at this time by Cardiology (5) CAD (coronary artery disease): Code(s): I25.10 - Atherosclerotic heart disease of [place] coronary artery without angina pectoris Status: Acute Assessment and Plan: history of CABG and PCI in the past further evaluation as per Cardiology (6) Elevated serum creatinine: Code(s): R79.89 - Other specified abnormal findings of blood chemistry Status: Acute Assessment and Plan: creatinine is in normal range today appears to be patient's baseline monitor urine output, electrolytes and creatinine patient will be him Lasix due to volume overload (7) Edema leg: Code(s): R60.0 - Localized edema Status: Acute Assessment and Plan: likely from heart failure Dopplers negative for any DVT patient is on Lovenox at this time Additional Plan DVT prophylaxis - Lovenox Updated patient and answered his questions. Patient is full code Transfer out of ICU today to IMU with continuous telemonitoring if okay with cardiology Subjective Date/time seen: 02/07/20 0700 feels much better today and denies any new complaints shortness of breath has improved no chest pain overnight continues to be in slow AFib with pauses here and there Review of Systems Review of Systems: All systems reviewed & are unremarkable except as noted in HPI and below ( HPI) Exam Narrative: Exam Narrative: General: Pt i
[2020-02-07] MEDS: MAGNESIUM SULF 1 GM/D5W 100 ML 1 GM/100 ML BAG IVPB (07:45)
[2020-02-07] MEDS: POTASSIUM CHLORIDE 20 MEQ TABLET 40 MEQ PO (09:26)
[2020-02-07] MEDS: busPIRone HCL 10 MG TABLET PO ×2 (09:27→17:06)
[2020-02-07] MEDS: CLOPIDOGREL BISULFATE 75 MG TABLET PO (09:27)
[2020-02-07] MEDS: lisinopriL 5 MG TABLET PO (09:27)
[2020-02-07] MEDS: SIMVASTATIN 20 MG TABLET 80 MG PO (09:27)
[2020-02-07] MEDS: FUROSEMIDE INJ 40 MG/4 ML VIAL IV PUSH (09:27)
--- NOTE | 2020-02-07 10:13 | PM.PNCARD ---
Progress Note: A&P Assessment and Plan (1) Elevated troponin: Code(s): R79.89 - Other specified abnormal findings of blood chemistry Status: Acute Assessment and Plan: likely related to CHF but cannot exclude true non-STEMI at this point. Continue to trend troponins. Continue clopidogrel, statin. NPO after midnight for coronary angiogram +/- ppm or vice versa (2) Acute exacerbation of congestive heart failure: Code(s): I50.9 - Heart failure, unspecified Status: Acute Assessment and Plan: Likely systolic in nature. increase lisinopril to 10 mg daily. continue furosemide (3) CAD (coronary artery disease): Code(s): I25.10 - Atherosclerotic heart disease of [place] coronary artery without angina pectoris Status: Acute Assessment and Plan: continue meds as above. (4) Bradycardia: Code(s): R00.1 - Bradycardia, unspecified Status: Acute Assessment and Plan: still bradycardic with pauses. digoxin is nearly Washed out at this point. Ppm will be needed Subjective Date/time seen: 02/07/20 10:13 Interval history: Follow-up visit in this 85-year-old man with shortness of breath. Patient has underlying coronary artery disease previous surgical and percutaneous revascularization. Moderate left ventricular systolic dysfunction by echo and concerning bradycardia on presentation. Because of bradycardia carvedilol and digoxin have been discontinued. Patient also describes 3-4 weeks of intermittent retrosternal burning discomfort concerning for myocardial ischemia. follow-up note 02/07/2020: Feels better. Less swollen. Less short of breath. No chest pain. He did have a 6.1 sec pause overnight. Some ventricular escape rhythm is noted. Review of Systems Review of Systems: All systems reviewed & are unremarkable except as noted in HPI and below Constitutional: Constitutional: Reports fatigue, Denies headache(s) and Reports weakness Eyes: Eyes: Denies blurry vision ENT: Reports Normal hearing present, Denies headache(s), Denies lip swelling and Denies neck pain Cardiovascular: Cardiovascular: Reports chest pain, Reports pedal edema, Reports leg edema and Reports dyspnea Respiratory: Respiratory: Reports dyspnea Gastrointestinal: Gastrointestinal: Denies abdominal pain Genitourinary: Genitourinary: Denies dysuria Musculoskeletal: Musculoskeletal: Denies neck pain Integumentary/Breasts: Skin/Breast: Denies dry skin Neurologic: Reports Normal hearing present, Denies headache(s) and Reports weakness Psychiatric: Psychiatric: Reports anxiety Endocrine: Endocrine: Reports fatigue Hematologic/Lymphatic: Hematologic/Lymphatic: Denies easy bleeding Allergic/Immunologic: Allergic/Immunologic: Denies lip swelling Exam Narrative: Exam Narrative: Alert oriented . pleasant male. Const: General: comfortable, no acute distress and uncomfortable HENMT: General nose exam: Normal nares present Mouth: Yes dry mucous membranes Eyes: Sclera: sclerae normal Pupils: Equal, round and reactive pupils present Neck: Neck: supple and no JVD Thyroid: thyroid normal Other: Positive JVD Chest: Other: no reproducible chest wall pain on palpation Resp: Effort & Inspection: normal respiratory effort Auscultation: crackles Other: Scant crackles at the bases Cardio: Rate: bradycardic Rhythm: regular rhythm and abnormal rhythm irregularly irregular Other: 2/6 systolic ejection murmur GI: Auscultation: normal bowel sounds Skin: General skin exam: normal color Neuro: Cranial nerves: Yes Equal, round and reactive pupils present and Yes Normal hearing present Cognition (Neuro): normal cognition Speech: normal speech Extrem: General: other ( Mild lower extremity edema bilaterally) Psych: Mental Status: mental status grossly normal Objective Data Vital Signs Vital Signs: Vital Signs - 24 hr 02/06/20 12:00 02/06/20 14:00 02/06/20 1
[2020-02-07 12:47] LABS: Glucose Point of Care 147 (65-105)
--- NOTE | 2020-02-07 16:54 | P.PNIM_ITS ---
Progress Note: A&P Assessment and Plan (1) Acute exacerbation of congestive heart failure: Code(s): I50.9 - Heart failure, unspecified Status: Acute Assessment and Plan: * Patient diuresed with close monitoring of his volume status and renal function. * Echocardiogram returned with EF 35-40%, wall motion abnormality, and pulmonary hypertension 69. * TSH normal. * cardiology following.and to do cath 02/07 (2) Bradycardia: Code(s): R00.1 - Bradycardia, unspecified Status: Acute Assessment and Plan: * slow atrial fibrillation at this time. * Digoxin and carvedilol both on hold. patient is uncertain as to why he is on digoxin. * Continue to monitor closely on telemetry; his blood pressures have been stable * full anticoagulation with Lovenox per real estate closing coordinator. (3) Elevated troponin: Code(s): R79.89 - Other specified abnormal findings of blood chemistry Status: Acute Assessment and Plan: * Troponins have been flat , perhaps due to CHF. * Will continue to trend , cardiology has seen and will proceed with ischemia evaluation , cath 02/07 (4) Renal failure: Code(s): N19 - Unspecified kidney failure Status: Acute Assessment and Plan: * He may very well have some chronic kidney disease but could be due to poor perfusion as well. * creatinine down to 1.0 with diuresis (5) Pre-diabetes: Code(s): R73.03 - Prediabetes Status: Acute Assessment and Plan: * Metformin on hold at this time; hemoglobin A1c.6.4 * Initiate sliding scale insulin, Accu-Cheks, and hypoglycemic protocol. (6) Normocytic anemia: Code(s): D64.9 - Anemia, unspecified Status: Acute Assessment and Plan: * iron studies compatible with anemia chronic disease but B12 increased to 232 so replaced with 1000 microgram IM (7) Coronary artery disease: Code(s): I25.10 - Atherosclerotic heart disease of [place] coronary artery without angina pectoris Status: Acute Assessment and Plan: * Status post CABG in 1999. * Carvedilol on hold given bradycardia, continue clopidogrel and statin. * ischemia evaluation , probable cath 02/07 Subjective Date/time seen: 02/07/20 16:54 Interval history: date of visit 02/06. 85-year-old with history of coronary artery disease admitted with increasing shortness breath found to be in slow AFib. Anticoagulated, beta-darion and Lanoxin have been held. Diuresed and feels much better, slept more with no sob Related to cardiologists has been having chest pressure prior to shortness of breath also Exam Narrative: Exam Narrative: blood pressure 118/78 pulse 40, regular respirations 22 per minute saturating 96% on room air General: A well-developed, mildly ill-appearing elderly male HEENT: . Anthony Sclerae anicteric. Neck: Supple. . Respiratory: Lung sounds are diminished at the bases.with faint R post basal crackle . Cardiovascular: Irregular and bradycardic. Soft systolic murmur heard at the sternal border. Gastrointestinal: Abdomen is soft and slightly protuberan
--- NOTE | 2020-02-07 16:54 | PM.IMPN ---
Progress Note: A&P Assessment and Plan (1) Acute exacerbation of congestive heart failure: Code(s): I50.9 - Heart failure, unspecified Status: Acute Assessment and Plan: Patient diuresed with close monitoring of his volume status and renal function. Echocardiogram returned with EF 35-40%, wall motion abnormality, and pulmonary hypertension 69. TSH normal. cardiology following.and to do cath 02/07 (2) Bradycardia: Code(s): R00.1 - Bradycardia, unspecified Status: Acute Assessment and Plan: slow atrial fibrillation at this time. Digoxin and carvedilol both on hold. patient is uncertain as to why he is on digoxin. Continue to monitor closely on telemetry; his blood pressures have been stable full anticoagulation with Lovenox per clay processing labourer. (3) Elevated troponin: Code(s): R79.89 - Other specified abnormal findings of blood chemistry Status: Acute Assessment and Plan: Troponins have been flat , perhaps due to CHF. Will continue to trend , cardiology has seen and will proceed with ischemia evaluation , cath 02/07 (4) Renal failure: Code(s): N19 - Unspecified kidney failure Status: Acute Assessment and Plan: He may very well have some chronic kidney disease but could be due to poor perfusion as well. creatinine down to 1.0 with diuresis (5) Pre-diabetes: Code(s): R73.03 - Prediabetes Status: Acute Assessment and Plan: Metformin on hold at this time; hemoglobin A1c.6.4 Initiate sliding scale insulin, Accu-Cheks, and hypoglycemic protocol. (6) Normocytic anemia: Code(s): D64.9 - Anemia, unspecified Status: Acute Assessment and Plan: iron studies compatible with anemia chronic disease but B12 increased to 232 so replaced with 1000 microgram IM (7) Coronary artery disease: Code(s): I25.10 - Atherosclerotic heart disease of [place] coronary artery without angina pectoris Status: Acute Assessment and Plan: Status post CABG in 1999. Carvedilol on hold given bradycardia, continue clopidogrel and statin. ischemia evaluation , probable cath 02/07 Subjective Date/time seen: 02/07/20 16:54 Interval history: date of visit 02/06. 85-year-old with history of coronary artery disease admitted with increasing shortness breath found to be in slow AFib. Anticoagulated, beta-darion and Lanoxin have been held. Diuresed and feels much better, slept more with no sob Related to cardiologists has been having chest pressure prior to shortness of breath also Exam Narrative: Exam Narrative: blood pressure 118/78 pulse 40, regular respirations 22 per minute saturating 96% on room air General: A well-developed, mildly ill-appearing elderly male HEENT: . Anthony Sclerae anicteric. Neck: Supple. . Respiratory: Lung sounds are diminished at the bases.with faint R post basal crackle . Cardiovascular: Irregular and bradycardic. Soft systolic murmur heard at the sternal border. Gastrointestinal: Abdomen is soft and slightly protuberant with positive bowel sounds. No guarding or rebound tenderness. Skin: Warm and dry. No rash or lesions . Extremities: He has 1+ lower extremity edema to the knees. Radial and pedal pulses intact. No calf pain or tenderness palpation. Negative Danilo sign bilaterally. Neurological: Alert. Cranial nerves 2-12 are grossly intact. Speech is clear. No facial asymmetry. No gross focal deficits . Psychiatric: Pleasant and cooperative with n
[2020-02-07 17:11] LABS: Glucose Point of Care 162 (65-105)
[2020-02-07 22:10] LABS: Glucose Point of Care 115 (65-105)
[2020-02-08] VITALS (15 sets, daily range): BP systolic 93–165; BP diastolic 56–108; PULSE 34–67; RESP 13–26; TEMP 36.2–36.7; O2SAT 94–100
[2020-02-08 04:41] LABS: Hematocrit 40.5 % (42.0-52.0); Hemoglobin 12.9 g/dL (14.0-18.0); Mean Corpuscular HGB Conc 31.9 g/dl (32-36); Mean Corpuscular Hemoglobin 28.2 pg (26-34); Mean Corpuscular Volume 88.6 fl (80-100); Mean Platelet Volume 11.7 fl (7.4-10.4); Platelet Count Result 161 k/mm3 (150-375); Red Blood Count 4.57 M/mm3 (4.6-6.20); Red Cell Distribution Width 15.6 % (11.5-14.5); White Blood Count 8.1 K/mm3 (4.5-10.0)
[2020-02-08 04:56] LABS: Alanine Aminotransferase 27 U/L (4-50); Alkaline Phosphatase 35 U/L (38-126); Anion Gap 6 mmol/L (8-16); Aspartate Amino Transferase 36 U/L (17-59); Bilirubin,Total 1.3 mg/dL (0.2-1.3); Blood Urea Nitrogen 35 mg/dL (9-20); Carbon Dioxide 29 mmol/L (22-30); Chloride 102 mmol/L (98-107); Estimated CRCL calculation 52 ml/min; Estimated Glomerular Filt Rate > 60; Glucose 124 mg/dL (75-110); Magnesium 2.1 mg/dL (1.6-2.3); Potassium 4.1 mmol/L (3.4-5.0); Sodium 137 mmol/L (137-145)
[2020-02-08 07:44] LABS: Glucose Point of Care 123 (65-105)
[2020-02-08] MEDS: busPIRone HCL 10 MG TABLET PO ×2 (08:12→17:27)
[2020-02-08] MEDS: SIMVASTATIN 20 MG TABLET 80 MG PO (08:12)
[2020-02-08] MEDS: lisinopriL 10 MG TABLET PO (08:13)
--- NOTE | 2020-02-08 08:30 | WPDINTPN ---
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 heart rate was in 30s on presentation and at this time is in 50s to 60s digoxin level has decreased to subtherapeutic level continue to hold hold digoxin and beta-darion patient is scheduled for permanent pacemaker placement today (2) Atrial fibrillation: Code(s): I48.91 - Unspecified atrial fibrillation Status: Acute Assessment and Plan: continue to hold beta-darion and digoxin due to bradycardia continue Lovenox and Plavix (3) CHF (congestive heart failure): Code(s): I50.9 - Heart failure, unspecified Status: Acute Assessment and Plan: Echo showed systolic and diastolic congestive heart failure along with pulmonary hypertension will continue with Lasix IV Not in respiratory distress at this time ECHO Summary 1. Left ventricular chamber dimension is moderately enlarged. 2. Left ventricular systolic function is moderately reduced, estimated at 35-40%. 3. There is mildly increased left ventricular wall thickness. 4. Left ventricular septal wall motion is abnormal with septal motion related to bundle branch block. 5. The left ventricular diastolic function is grade II diastolic dysfunction. 6. The inferior wall, inferoseptal wall, basal anteroseptal, mid anteroseptal, basal inferolateral wall, and mid inferolateral wall are hypokinetic. 7. Left atrial chamber dimension is moderately enlarged. 8. Right atrial chamber dimension is mildly enlarged. 9. There is mild aortic valve calcification. 10. There is mild mitral valve regurgitation. 11. Severe pulmonary hypertension, estimated pulmonary arterial systolic pressure is 69 mmHg. 12. There is mild tricuspid valve regurgitation. 13. There is mild pulmonic regurgitation. (4) NSTEMI (non-ST elevated myocardial infarction): Code(s): I21.4 - Non-ST elevation (NSTEMI) myocardial infarction Status: Acute Assessment and Plan: patient was seen by Cardiology serial troponin have remained essentially flat continue Plavix, statin, Lovenox echocardiogram reviewed continue to hold beta-darion due to bradycardia cardiac catheterization planned after permanent pacemaker placement but not scheduled at this time by Cardiology (5) CAD (coronary artery disease): Code(s): I25.10 - Atherosclerotic heart disease of [place] coronary artery without angina pectoris Status: Acute Assessment and Plan: history of CABG and PCI in the past further evaluation as per Cardiology (6) Elevated serum creatinine: Code(s): R79.89 - Other specified abnormal findings of blood chemistry Status: Acute Assessment and Plan: creatinine continues to be in normal range today appears to be patient's baseline monitor urine output, electrolytes and creatinine patient will be him Lasix due to volume overload (7) Edema leg: Code(s): R60.0 - Localized edema Status: Acute Assessment and Plan: likely from heart failure. improved significantly with diuresis Dopplers negative for any DVT patient is on Lovenox at this time Additional Plan DVT prophylaxis - Lovenox Updated patient and answered his questions. Patient is full code Transfer out of ICU today to IMU after permanent pacemaker placement. Subjective Date/time seen: 02/08/20 0830 he feels much good today and denies any new complaints shortness of breath has improved and he denies feeling short of breath today no chest pain overnight continues to be in slow AFib with pauses here and there Patient denies fever, chest pain, shortness of breath, cough, nausea vomiti
[2020-02-08] MEDS: FUROSEMIDE INJ 40 MG/4 ML VIAL IV PUSH (10:07)
[2020-02-08 12:22] LABS: Glucose Point of Care 135 (65-105)
--- NOTE | 2020-02-08 13:15 | WPDMODSED ---
Moderate Sedation Note-Pt Data Patient Data Diagnosis: symptomatic bradycardia with AFib and slow ventricular response coronary artery disease with previous bypass grafting ischemic left ventricular dysfunction Present Complaint: shortness of breath, weakness and intermittent chest pain Procedure to be performed/Plan: implantation of permanent ventricular pacemaker Allergies Allergy/AdvReac Type Severity Reaction Status Date / Time No Known Drug Allergies Allergy Verified 02/05/20 18:11 Home Medications Medication Instructions Recorded Confirmed Type buspirone 10 mg PO BID 02/05/20 02/05/20 History carvedilol 25 mg PO BID 02/05/20 02/05/20 History clopidogrel 75 mg PO DAILY 02/05/20 02/05/20 History digoxin 250 mcg PO DAILY 02/05/20 02/05/20 History furosemide 20 mg PO BID 02/05/20 02/05/20 History hydralazine 25 mg PO BID 02/05/20 02/05/20 History metformin 1,000 mg PO BID 02/05/20 02/05/20 History niacin 500 mg PO BID 02/05/20 02/05/20 History simvastatin 80 mg PO DAILY 02/05/20 02/05/20 History Current Medications: Active Medications Buspirone HCl (Buspar) 10 mg PO BID [facility] Last Admin: 02/08/20 08:12 Dose: 10 mg Documented by: Clopidogrel Bisulfate (Plavix) 75 mg PO DAILY [facility] Last Admin: 02/07/20 09:27 Dose: 75 mg Documented by: Dextrose (Dextrose 50% Syringe) 12.5 gm IV PUSH PRN PRN; Protocol PRN Reason: Hypoglycemia Furosemide (Lasix Inj) 40 mg IV PUSH DAILY [facility] Last Admin: 02/08/20 10:07 Dose: 40 mg Documented by: Glucagon (Glucagon For Inj) 1 mg IM PRN PRN; Protocol PRN Reason: Hypoglycemia Glucose (Glutose 15) 15 gm PO PRN PRN; Protocol PRN Reason: Hypoglycemia Dextrose (Dextrose 5% 1,000 Ml) 1,000 mls @ 100 mls/hr IVPB PRN PRN; Protocol PRN Reason: Hypoglycemia Insulin Aspart (Novolog) 2 - 5 units SUB-Q TIDWM [facility]; Protocol Last Admin: 02/08/20 12:53 Dose: Not Given Documented by: Lisinopril (Prinivil) 10 mg PO QAM [facility] Last Admin: 08/14/20 08:13 Dose: 10 mg Documented by: Nitroglycerin (Nitrostat Subl 0.4 Mg (1/150)) 0.4 mg SUBLINGUAL Q5MIN PRN PRN Reason: Chest Pain Simvastatin (Zocor) 80 mg PO DAILY RON Last Admin: 02/08/20 08:12 Dose: 80 mg Documented by: Sedation/Anesthesia: No previous sedation/anesthesia problems (including family history). [facility] Past Medical History Medical History (Updated 02/06/20 @ 09:05 by Faustino Grimes MD) Coronary artery disease With history of myocardial infarction in 1999. Status post 4 vessel CABG. Gastroesophageal reflux disease Hypertension Normocytic anemia Pre-diabetes Surgical History Surgical History (Updated 02/05/20 @ 18:06 by Steph Bentley PA-C) History of cataract extraction History of coronary artery bypass graft (~02/2000) BROOKS to LAD, SVG to RCA, SVG to circumflex. History of coronary artery stent placement Left circumflex. Family History Family History Father Renal cell carcinoma Social History Social History Social History: The patient is And lives in his own home in [place]. he has 3 children. He is a lifelong nonsmoker. He drinks perhaps 1 beer a week. No illicit substance use. He designates his daughter, Lynn Merchant, as his surrogate decision maker and he wishes to be a full code. Smoking status: Never smoker Alcohol intake: current Drinks per week: 3 Substance use: never Substance use type: does not use Gender identity (if verbalized by the patient): Male Sexual Orientation (if Verbalized by the Patient): Straight or Heterosexual Spiritual care concerns: No Mod Sed Physical Exam Physical Exam Pre Procedural Exam: Normal: Throat, Airway, Heart Rate, Neuro Exam and Extremities and Variation: Appearance ( elderly white male currently no distress), Lungs ( breath sounds somewhat distant but clear), Heart Size ( PMI enlarged) an
--- NOTE | 2020-02-08 14:40 | ECG_ITS ---
Measurements Intervals [place] Rate: 52 P: MA: 0 QRS: -77 QRSD: 195 T: 96 QT: 491 QTc: 459 Interpretive Statements ELECTRONIC VENTRICULAR PACEMAKER VENTRICULAR PREMATURE COMPLEX BASELINE ARTIFACT- I, II, III, AVR, AVL, AVF, V4-V6 NO FURTHER INTERPRETATION IS POSSIBLE ATYPICAL ECG Electronically Signed On 02-08-2020 15:46:30 CDT by Bro Addison D.O.
--- NOTE | 2020-02-08 14:43 | WPDCARDPROC ---
Cardiac Cath Procedure Note Date of procedure:: 02/08/20 Performing physician:: Mykel Gomes MD Indication:: symptomatic bradycardia with AFib and slow ventricular response coronary disease previous CABG chronic atrial fibrillation congestive heart Brief clinical history:: 85-year-old man with a history of coronary disease previous bypass grafting enters the hospital with about 2 months of increasing slowly shortness of breath. The patient is found to be in atrial fib with slow ventricular response. He was taking carvedilol and digoxin as an outpatient these were withdrawn earlier in the week but his [place] arrhythmias have persisted in addition to this he has occasional asystolic pauses some of greater than 6 seconds. For this reason a ventricular pacemaker has been recommended and is planned for this afternoon Procedure Procedure performed:: implantation of permanent single-chamber Biotronik pacemaker Sedation/Medication given:: fentanyl 50 mg Versed 2 mg case start time 2:11 p.m. case end time 1439 sedation provided by Calos An RN, trained observer Access site:: left subclavian Estimated blood loss:: 10-15 mL Procedure note:: patient was brought to the cardiac catheterization lab in the postabsorptive state the left anterior chest wall was prepped and draped in the normal sterile fashion. He received Ancef 1 g prior to starting the case. Patient received 20 cc of lidocaine inferior to the clavicle and the following that an incision was made about 1 in below the clavicle from the midclavicular line to the deltopectoral groove. Electrocautery was used to provide cutaneous hemostasis. Sharp and blunt dissection was used to separate the subcutaneous tissue to the level of the prepectoral fascia. Blunt dissection was then used to create a pocket inferior to the incision. Pocket was packed with antibiotic soaked 4 x 4. Following this attention was turned to venous access. The left subclavian vein was punctured under fluoroscopic visualization using the Cook needle and the J-tip guidewire was placed into the venous circulation and advanced to the level of the right atrium. Following this the pacemaker SafeSheath was over the guidewire. The guidewire and dilator were removed. This sheath was used to insert the lead detailed below into the venous circulation was was placed into the right atrial position. The stylet was withdrawn and a 3 cc syringe was used to fashion a J-tip on the stylet which was used to steer the lead through their RV and out into the PA position. This was then withdrawn and replaced with a straight stylet. This was withdrawn and placed into the right ventricular apex. Appropriate R-waves were sensed and the fixation screw was then deployed. The stylet was withdrawn and the analyzer was used to verify good pacing and sensing performance. A 10 volt stimulus showed no sign of extracardiac stimulation. The retained sponge was then removed from the pocket the lead was secured to the base of the pocket using the supplied suture sleeve and 2 0 silk ties. The pocket was irrigated with Ancef infused saline. Following this the generator was connected to the lead using the torque wrench and the assembly was placed into the newly created pocket this was then closed in layers using 3 0 Vicryl in interrupted fashion for the subcutaneous tissue 4 0 Vicryl in a running subcuticular fashion for the skin. An Aquacel dressing was placed in immobilizer was placed on the left arm the patient was taken to the ICU for post pacemaker implant recovery in stable condition there were no signs of any complications. Postop ECG chest x-ray antibiotics were ordered. Findings:: The patient received a Biotronik single-chamber pacemaker model Edora 8 SR-T serial number [id number]. device is programmed in the VVI mode lower rate 50. the lead is a Biotronik bipolar screw-in lead model Solia S 60, serial number [id number]. the R-wa
--- NOTE | 2020-02-08 16:10 | P.PNIM_ITS ---
Progress Note: A&P Assessment and Plan (1) Acute exacerbation of congestive heart failure: Code(s): I50.9 - Heart failure, unspecified Status: Acute Assessment and Plan: * Patient diuresed with close monitoring of his volume status and renal function. * Echocardiogram returned with EF 35-40%, wall motion abnormality, and pulmonary hypertension 69. * TSH normal. * cardiology following.and possible cath 02/10 (2) Bradycardia: Code(s): R00.1 - Bradycardia, unspecified Status: Acute Assessment and Plan: * slow atrial fibrillation at this time. * Digoxin and carvedilol both on hold. * Continue to monitor closely on telemetry; his blood pressures have been stable * full anticoagulation with Lovenox per stockroom keeper. * dual chamber pacer placed today (3) Elevated troponin: Code(s): R79.89 - Other specified abnormal findings of blood chemistry Status: Acute Assessment and Plan: * Troponins have been flat , perhaps due to CHF. * Will continue to trend , cardiology has seen and will proceed with ischemia evaluation , cath 02/10 tentatively (4) Renal failure: Code(s): N19 - Unspecified kidney failure Status: Acute Assessment and Plan: * He may very well have some chronic kidney disease but could be due to poor perfusion as well. * creatinine down to 1.0 with diuresis (5) Pre-diabetes: Code(s): R73.03 - Prediabetes Status: Acute Assessment and Plan: * Metformin on hold at this time; hemoglobin A1c.6.4 * Initiate sliding scale insulin, Accu-Cheks, and hypoglycemic protocol. * FBS 124 (6) Normocytic anemia: Code(s): D64.9 - Anemia, unspecified Status: Acute Assessment and Plan: * iron studies compatible with anemia chronic disease but B12 decreased to 232 so replaced with 1000 microgram IM 02/05 (7) Coronary artery disease: Code(s): I25.10 - Atherosclerotic heart disease of [place] coronary artery without angina pectoris Status: Acute Assessment and Plan: * Status post CABG in 1999. * Carvedilol on hold given bradycardia, continue clopidogrel and statin. * ischemia evaluation , probable cath 02/10 Subjective Date/time seen: 02/08/20 16:10 Interval history: date of visit 02/07. 85-year-old with history of coronary artery disease admitted with increasing shortness breath found to be in slow AFib. Anticoagulated, beta-darion and Lanoxin have been held. Diuresed and feeling much better, Related to cardiologists has been having chest pressure prior to shortness of breath also Pacer today for bradyarrythmia Exam Narrative: Exam Narrative: blood pressure 144/74 pulse 54, regular respirations 18 per minute saturating 94% on room air General: A well-developed, mildly ill-appearing elderly male HEENT: . Anthony Sclerae anicteric. Neck: Supple. . Respiratory: Lung sounds are diminished at the bases.with faint R post basal c rackle . Cardiovascular: Irregular and bradycardic. Soft systolic murmur heard at the sternal border. Gastrointestinal:
--- NOTE | 2020-02-08 16:10 | PM.IMPN ---
Progress Note: A&P Assessment and Plan (1) Acute exacerbation of congestive heart failure: Code(s): I50.9 - Heart failure, unspecified Status: Acute Assessment and Plan: Patient diuresed with close monitoring of his volume status and renal function. Echocardiogram returned with EF 35-40%, wall motion abnormality, and pulmonary hypertension 69. TSH normal. cardiology following.and possible cath 02/10 (2) Bradycardia: Code(s): R00.1 - Bradycardia, unspecified Status: Acute Assessment and Plan: slow atrial fibrillation at this time. Digoxin and carvedilol both on hold. Continue to monitor closely on telemetry; his blood pressures have been stable full anticoagulation with Lovenox per stone layout marker. dual chamber pacer placed today (3) Elevated troponin: Code(s): R79.89 - Other specified abnormal findings of blood chemistry Status: Acute Assessment and Plan: Troponins have been flat , perhaps due to CHF. Will continue to trend , cardiology has seen and will proceed with ischemia evaluation , cath 02/10 tentatively (4) Renal failure: Code(s): N19 - Unspecified kidney failure Status: Acute Assessment and Plan: He may very well have some chronic kidney disease but could be due to poor perfusion as well. creatinine down to 1.0 with diuresis (5) Pre-diabetes: Code(s): R73.03 - Prediabetes Status: Acute Assessment and Plan: Metformin on hold at this time; hemoglobin A1c.6.4 Initiate sliding scale insulin, Accu-Cheks, and hypoglycemic protocol. FBS 124 (6) Normocytic anemia: Code(s): D64.9 - Anemia, unspecified Status: Acute Assessment and Plan: iron studies compatible with anemia chronic disease but B12 decreased to 232 so replaced with 1000 microgram IM 02/05 (7) Coronary artery disease: Code(s): I25.10 - Atherosclerotic heart disease of [place] coronary artery without angina pectoris Status: Acute Assessment and Plan: Status post CABG in 1999. Carvedilol on hold given bradycardia, continue clopidogrel and statin. ischemia evaluation , probable cath 02/10 Subjective Date/time seen: 02/08/20 16:10 Interval history: date of visit 02/07. 85-year-old with history of coronary artery disease admitted with increasing shortness breath found to be in slow AFib. Anticoagulated, beta-darion and Lanoxin have been held. Diuresed and feeling much better, Related to cardiologists has been having chest pressure prior to shortness of breath also Pacer today for bradyarrythmia Exam Narrative: Exam Narrative: blood pressure 144/74 pulse 54, regular respirations 18 per minute saturating 94% on room air General: A well-developed, mildly ill-appearing elderly male HEENT: . Anthony Sclerae anicteric. Neck: Supple. . Respiratory: Lung sounds are diminished at the bases.with faint R post basal crackle . Cardiovascular: Irregular and bradycardic. Soft systolic murmur heard at the sternal border. Gastrointestinal: Abdomen is soft and slightly protuberant with positive bowel sounds. No guarding or rebound tenderness. Skin: Warm and dry. No rash or lesions . Extremities: He no lower extremity edema to the knees now. Radial and pedal pulses intact. No calf pain or tenderness palpation. Neurological: Alert. No gross focal deficits and . Psychiatric: Pleasant and cooperative with normal mood and affect. Objective Data Vital Signs Vital Signs: Vital
[2020-02-08] MEDS: SODIUM CHLORIDE 0.9% IV 1,000 ML 50 ML IV CONT (17:25)
[2020-02-08] MEDS: carvediloL 12.5 MG TABLET PO (21:59)
[2020-02-09] VITALS (16 sets, daily range): BP systolic 110–169; BP diastolic 41–88; PULSE 48–70; RESP 14–23; TEMP 36.4–36.9; O2SAT 96–100
[2020-02-09 04:37] LABS: Hematocrit 39.1 % (42.0-52.0); Hemoglobin 12.7 g/dL (14.0-18.0); Mean Corpuscular HGB Conc 32.5 g/dl (32-36); Mean Corpuscular Hemoglobin 28.4 pg (26-34); Mean Corpuscular Volume 87.5 fl (80-100); Mean Platelet Volume 11.5 fl (7.4-10.4); Platelet Count Result 164 k/mm3 (150-375); Red Blood Count 4.47 M/mm3 (4.6-6.20); Red Cell Distribution Width 15.7 % (11.5-14.5); White Blood Count 9.4 K/mm3 (4.5-10.0)
[2020-02-09 04:52] LABS: Alanine Aminotransferase 28 U/L (4-50); Albumin Level 3.7 g/dL (3.5-5.1); Alkaline Phosphatase 38 U/L (38-126); Anion Gap 8 mmol/L (8-16); Aspartate Amino Transferase 36 U/L (17-59); Bilirubin,Total 1.2 mg/dL (0.2-1.3); Blood Urea Nitrogen 26 mg/dL (9-20); Calcium 8.8 mg/dL (8.4-10.2); Carbon Dioxide 25 mmol/L (22-30); Chloride 103 mmol/L (98-107); Estimated CRCL calculation 58 ml/min; Estimated Glomerular Filt Rate > 60; Glucose 137 mg/dL (75-110); Potassium 4.1 mmol/L (3.4-5.0); Sodium 136 mmol/L (137-145)
[2020-02-09 06:19] LABS: Glucose Point of Care 225 (65-105)
--- NOTE | 2020-02-09 08:41 | PM.PNCARD ---
Progress Note: A&P Additional Plan 85-year-old man with: Ischemic heart disease previous bypass grafting, ischemic left ventricular dysfunction ejection fraction approximately 35%. Admitted with decompensated CHF which has resolved with diuresis, ECTOR-inhibitor treatment. Persistent atrial fibrillation which will be his chronic rhythm. Patient was unfortunately a bradycardic with asystolic pauses of over 6 seconds despite discontinuing digoxin and his beta-darion. For this reason VVI pacemaker was implanted yesterday device implant was smooth and uneventful and is working properly this morning. This morning's chest x-ray is favorable. Plans for discharge today I told the patient is probably not realistic. He will be at bed rest until 3:00 p.m.. More likely /more realistically discharge tomorrow would seem reasonable since he is of the opinion that he would like to go home and consider coronary angiography to be done in the near future as an outpatient. At discharge I would continue him on clopidogrel. I would not initiate systemic anticoagulation until I see him in the office next week and verify that the pocket shows no evidence of hematoma. Mykel Gomes MD [facility] Subjective Date/time seen: date of service:02/09/20 08:41 Interval history: Follow-up visit in this 85-year-old man with shortness of breath. Patient has underlying coronary artery disease previous surgical and percutaneous revascularization. Moderate left ventricular systolic dysfunction by echo and concerning bradycardia on presentation. Because of bradycardia carvedilol and digoxin have been discontinued. Patient also describes 3-4 weeks of intermittent retrosternal burning discomfort concerning for myocardial ischemia. Patient is doing well this morning he is asymptomatic. Had ventricular pacemaker placed yesterday because of persistent [place] arrhythmias despite discontinuing his carvedilol and digoxin. Carvedilol has been increased at half of his previous dosage. Blood pressure is better today. Patient is hoping to be discharged either today or tomorrow. I told him that probably tomorrow would be more realistic given the fact that he will be at bedrest until 3:00 p.m.. Had a long discussion with he the patient and his family yesterday about the play eventual plans for to perform a follow-up coronary angiogram, vein graft, internal mammary graft angiogram. He understands this but would like to go home and recover and do this as an outpatient. Exam Const: General: comfortable and no acute distress HENMT: Mouth: Yes moist mucous membranes Eyes: Sclera: sclerae normal Pupils: Equal, round and reactive pupils present Neck: Neck: supple and no JVD Thyroid: thyroid normal Resp: Effort & Inspection: normal respiratory effort Auscultation: clear to auscultation bilaterally Cardio: Rhythm: abnormal rhythm irregularly irregular GI: Auscultation: normal bowel sounds Skin: General skin exam: normal color Neuro: Cognition (Neuro): normal cognition Extrem: General: normal to inspection Objective Data Vital Signs Vital Signs: Vital Signs - 24 hr 02/08/20 10:00 02/08/20 12:00 02/08/20 15:19 Temperature 36.2 C L Pulse Rate 60 66 54 L Respiratory Rate 15 17 17 Blood Pressure 164/108 H 125/56 L 145/75 H Pulse Oximetry 94 94 94 02/08/20 16:00 02/08/20 16:25 02/08/20 18:00 Temperature 36.4 C L Pulse Rate 67 55 L 60 Respiratory Rate 19 Blood Pressure 162/62 H Pulse Oximetry 100 100 02/08/20 20:00 02/08/20 21:59 02/08/20 22:00 Temperature 36.6 C Pulse Rate 53 L 53 L 55 L Respiratory Rate 26 H Blood Pressure 93/78 L Pulse Oximetry 97 02/09/20 00:00 02/09/20 02:00 02/09/20 04:00 Temperature 36.4 C 36.9 C Pulse Rate 57 L 56 L 57 L Respiratory Rate 23 H 17 Blood Pressure 136/50 L 163/88 H Pulse Oximetry 96 98 02/09/20 06:00 Temperature Pulse Rate 59 L Respiratory Rate Blood Pressure Pulse Ox
[2020-02-09] MEDS: SIMVASTATIN 20 MG TABLET 80 MG PO (08:43)
[2020-02-09] MEDS: lisinopriL 10 MG TABLET PO (08:44)
[2020-02-09] MEDS: busPIRone HCL 10 MG TABLET PO ×2 (08:44→17:11)
[2020-02-09] MEDS: FUROSEMIDE INJ 40 MG/4 ML VIAL IV PUSH (08:44)
[2020-02-09] MEDS: carvediloL 12.5 MG TABLET PO ×2 (08:46→20:35)
[2020-02-09 08:51] LABS: Glucose Point of Care 164 (65-105)
[2020-02-09] MEDS: INSULIN ASPART (*BKC) 100 UNITS/ML SUB-Q (12:47)
[2020-02-09 12:50] LABS: Glucose Point of Care 216 (65-105)
[2020-02-09 17:13] LABS: Glucose Point of Care 170 (65-105)
--- NOTE | 2020-02-09 17:13 | P.PNIM_ITS ---
Progress Note: A&P Assessment and Plan (1) Acute exacerbation of congestive heart failure: Code(s): I50.9 - Heart failure, unspecified Status: Acute Assessment and Plan: * Patient diuresed with close monitoring of his volume status and renal function. * Echocardiogram returned with EF 35-40%, wall motion abnormality, and pulmonary hypertension 69. * TSH normal. * cardiology following.and possible cath after d/c (2) Bradycardia: Code(s): R00.1 - Bradycardia, unspecified Status: Acute Assessment and Plan: * slow atrial fibrillation with intermittant paced now. * carvedilol restarted after pacer. * Continue to monitor on telemetry; his blood pressures have been stable * restart anticoagulation per cardiology (3) Elevated troponin: Code(s): R79.89 - Other specified abnormal findings of blood chemistry Status: Acute Assessment and Plan: * Troponins have been flat , perhaps due to CHF. * Will continue to trend , cardiology has seen and will proceed with ischemia evaluation , cath as outpatinet (4) Renal failure: Code(s): N19 - Unspecified kidney failure Status: Acute Assessment and Plan: * He may very well have some chronic kidney disease but could be due to poor perfusion as well. * creatinine down to 0.9 with diuresis (5) Pre-diabetes: Code(s): R73.03 - Prediabetes Status: Acute Assessment and Plan: * Metformin on hold at this time; hemoglobin A1c.6.4 * Initiate sliding scale insulin, Accu-Cheks, and hypoglycemic protocol. * FBS 137 (6) Normocytic anemia: Code(s): D64.9 - Anemia, unspecified Status: Acute Assessment and Plan: * iron studies compatible with anemia chronic disease but B12 decreased to 232 so replaced with 1000 microgram IM 02/05 (7) Coronary artery disease: Code(s): I25.10 - Atherosclerotic heart disease of [place] coronary artery without angina pectoris Status: Acute Assessment and Plan: * Status post CABG in 1999. * Carvedilol restarted 02/07 after pacer, continue clopidogrel and statin. * ischemia evaluation later date Subjective Date/time seen: 02/09/20 17:13 Interval history: date of visit 02/08. 85-year-old with history of coronary artery disease admitted with increasing shortness breath found to be in slow AFib. Anticoagulated, beta-darion and Lanoxin have been held. Diuresed and feeling much better, Related to cardiologists has been having chest pressure prior to shortness of breath also Pacer 02/07 for bradyarrythmia and feels well today , no sob or cp Exam Narrative: Exam Narrative: blood pressure 92008 pulse 60, regular respirations 16 per minute saturating 98% on room air General: A well-developed, mildly ill-appearing elderly male HEENT: . Anthony Sclerae anicteric. Neck: Supple. . Respiratory: Lung sounds are diminished at the bases. and clear today . Cardiovascular: Irregular and bradycardic. Soft systolic murmur heard at the sternal border. Gastrointestinal: Abdomen is soft with positive bowel sounds
--- NOTE | 2020-02-09 17:13 | PM.IMPN ---
Progress Note: A&P Assessment and Plan (1) Acute exacerbation of congestive heart failure: Code(s): I50.9 - Heart failure, unspecified Status: Acute Assessment and Plan: Patient diuresed with close monitoring of his volume status and renal function. Echocardiogram returned with EF 35-40%, wall motion abnormality, and pulmonary hypertension 69. TSH normal. cardiology following.and possible cath after d/c (2) Bradycardia: Code(s): R00.1 - Bradycardia, unspecified Status: Acute Assessment and Plan: slow atrial fibrillation with intermittant paced now. carvedilol restarted after pacer. Continue to monitor on telemetry; his blood pressures have been stable restart anticoagulation per cardiology (3) Elevated troponin: Code(s): R79.89 - Other specified abnormal findings of blood chemistry Status: Acute Assessment and Plan: Troponins have been flat , perhaps due to CHF. Will continue to trend , cardiology has seen and will proceed with ischemia evaluation , cath as outpatinet (4) Renal failure: Code(s): N19 - Unspecified kidney failure Status: Acute Assessment and Plan: He may very well have some chronic kidney disease but could be due to poor perfusion as well. creatinine down to 0.9 with diuresis (5) Pre-diabetes: Code(s): R73.03 - Prediabetes Status: Acute Assessment and Plan: Metformin on hold at this time; hemoglobin A1c.6.4 Initiate sliding scale insulin, Accu-Cheks, and hypoglycemic protocol. FBS 137 (6) Normocytic anemia: Code(s): D64.9 - Anemia, unspecified Status: Acute Assessment and Plan: iron studies compatible with anemia chronic disease but B12 decreased to 232 so replaced with 1000 microgram IM 02/05 (7) Coronary artery disease: Code(s): I25.10 - Atherosclerotic heart disease of [place] coronary artery without angina pectoris Status: Acute Assessment and Plan: Status post CABG in 1999. Carvedilol restarted 02/07 after pacer, continue clopidogrel and statin. ischemia evaluation later date Subjective Date/time seen: 02/09/20 17:13 Interval history: date of visit 02/08. 85-year-old with history of coronary artery disease admitted with increasing shortness breath found to be in slow AFib. Anticoagulated, beta-darion and Lanoxin have been held. Diuresed and feeling much better, Related to cardiologists has been having chest pressure prior to shortness of breath also Pacer 02/07 for bradyarrythmia and feels well today , no sob or cp Exam Narrative: Exam Narrative: blood pressure 99819 pulse 60, regular respirations 16 per minute saturating 98% on room air General: A well-developed, mildly ill-appearing elderly male HEENT: . Anthony Sclerae anicteric. Neck: Supple. . Respiratory: Lung sounds are diminished at the bases. and clear today . Cardiovascular: Irregular and bradycardic. Soft systolic murmur heard at the sternal border. Gastrointestinal: Abdomen is soft with positive bowel sounds. No guarding or rebound tenderness. Skin: Warm and dry. No rash or lesions . Extremities: He no lower extremity edema . Radial and pedal pulses intact. . Neurological: Alert. No gross focal deficits and . Psychiatric: Pleasant and cooperative with normal mood and affect. Objective Data Vital Signs Vital Signs: Vital Signs - 24 hr 02/08/20 18:00 02/08/20 20:00 02/08/20 21:59 Temperature 36.6 C Pulse Rate 60 53
--- NOTE | 2020-02-09 18:20 | PC.NURSE ---
This patient, Torito Mcleod, was received from [facility] on 02/09/20 at 1820. Report received from Kassie ALCANTAR Personal belongings list checked and signed. Patient/family oriented to unit policies and routines
--- NOTE | 2020-02-09 19:26 | PC.NURSE ---
This patient, Torito Mcleod, was transferred to [[facility] ] on 02/09/20 at 1815. Personal belongings sent with patient. Belongings list checked. Report given to [Carley ]. Appropriate documentation sent with patient.
[2020-02-09 20:09] LABS: Glucose Point of Care 258 (65-105)
[2020-02-10] VITALS: PULSE 55; RESP 16; O2SAT 99
[2020-02-10 02:00] VITALS: PULSE 56
[2020-02-10 04:00] VITALS: BP 119/81; PULSE 53; PULSE 59; RESP 18; TEMP 36.4; O2SAT 96
[2020-02-10 04:52] LABS: Hematocrit 36.9 % (42.0-52.0); Hemoglobin 11.9 g/dL (14.0-18.0); Mean Corpuscular HGB Conc 32.2 g/dl (32-36); Mean Corpuscular Hemoglobin 28.2 pg (26-34); Mean Corpuscular Volume 87.4 fl (80-100); Mean Platelet Volume 11.6 fl (7.4-10.4); Platelet Count Result 151 k/mm3 (150-375); Red Blood Count 4.22 M/mm3 (4.6-6.20); Red Cell Distribution Width 15.6 % (11.5-14.5)
[2020-02-10 05:08] LABS: Alanine Aminotransferase 26 U/L (4-50); Albumin Level 3.6 g/dL (3.5-5.1); Alkaline Phosphatase 35 U/L (38-126); Anion Gap 7 mmol/L (8-16); Aspartate Amino Transferase 31 U/L (17-59); Bilirubin,Total 1.2 mg/dL (0.2-1.3); Blood Urea Nitrogen 36 mg/dL (9-20); Calcium 8.7 mg/dL (8.4-10.2); Carbon Dioxide 28 mmol/L (22-30); Chloride 101 mmol/L (98-107); Estimated CRCL calculation 48 ml/min; Estimated Glomerular Filt Rate > 60; Glucose 159 mg/dL (75-110); Potassium 4.2 mmol/L (3.4-5.0); Sodium 136 mmol/L (137-145)
[2020-02-10 06:00] VITALS: PULSE 61
--- NOTE | 2020-02-10 07:43 | PM.PNCARD ---
Progress Note: A&P Additional Plan 85-year-old man with: Coronary artery disease previous CABG evidence of ischemic left ventricular dysfunction by echo. Admitted with decompensated congestive heart failure stabilized with medical therapy and implantation of a biventricular pacemaker. Chronic atrial fibrillation with significant biatrial dilation. Bradycardic concerns resolved following pacemaker implantation. Concern regarding re-evaluation of his ischemic disease will be deferred to outpatient as per his choice. Catheterization was discussed to be done during this hospitalization it is the patient's preference to defer that until the future as the patient may undergo an angiogram I will withhold anticoagulation until we make those decisions and we will review the pacemaker pocket next week when that he done dressing is removed. Following all of that systemic anticoagulation will be initiated Mykel Gomes MD [facility] Subjective Date/time seen: Date of service:02/10/20 07:43 Interval history: Follow-up visit in this 85-year-old man with coronary artery disease, atrial fibrillation, congestive heart failure, previous coronary bypass grafting. Patient is asymptomatic this morning and feels well. Today is postop day 2. Following pacemaker implantation. No longer having any shortness of breath or chest pain would like to go home today. Exam Const: General: comfortable and no acute distress HENMT: Mouth: Yes moist mucous membranes Eyes: Sclera: sclerae normal Pupils: Equal, round and reactive pupils present Neck: Neck: supple and no JVD Thyroid: thyroid normal Resp: Effort & Inspection: normal respiratory effort Other: Pacemaker dressing looks dry and intact. Cardio: Rhythm: abnormal rhythm irregularly irregular GI: Auscultation: normal bowel sounds Skin: General skin exam: normal color Neuro: Cognition (Neuro): normal cognition Extrem: General: normal to inspection Objective Data Vital Signs Vital Signs: Vital Signs - 24 hr 02/09/20 08:00 02/09/20 08:46 02/09/20 10:00 Temperature 36.6 C Pulse Rate 65 70 70 Respiratory Rate 14 Blood Pressure 169/66 H Pulse Oximetry 100 02/09/20 12:00 02/09/20 14:00 02/09/20 16:00 Temperature 36.6 C 36.8 C Pulse Rate 48 L 48 L 54 L Respiratory Rate 18 18 Blood Pressure 137/51 L 110/60 Pulse Oximetry 97 96 02/09/20 18:00 02/09/20 19:14 08/15/20 20:00 Temperature 36.7 C Pulse Rate 56 L 48 L 60 Respiratory Rate 18 18 Blood Pressure 117/41 L Pulse Oximetry 98 98 02/09/20 20:35 02/09/20 22:00 02/09/20 23:28 Temperature 36.6 C Pulse Rate 60 49 L 55 L Respiratory Rate 16 Blood Pressure 129/44 L Pulse Oximetry 99 02/10/20 00:00 02/10/20 02:00 02/10/20 04:00 Temperature 36.4 C Pulse Rate 55 L 56 L 59 L Respiratory Rate 16 18 Blood Pressure 119/81 Pulse Oximetry 99 96 02/10/20 06:00 Temperature Pulse Rate 61 Respiratory Rate Blood Pressure Pulse Oximetry Intake/Output Intake/Output: Intake & Output 02/07/20 02/08/20 02/09/20 02/10/20 23:59 23:59 23:59 23:59 Intake Total 9535 731 8916 40 Output Total 1550 2826 1727 400 Balance -150 -2675 -455 -360 Meds/Results Medications: Active Medications Generic Name Dose Route Start Last Admin Trade Name Freq PRN Reason Stop Dose Admin Hydrocodone Bitart/Acetaminophen 1 tab 02/08/20 14:40 [place] 5-325 Mg PO Q6H PRN Pain Rated 1-3 Buspirone HCl 10 mg 02/05/20 17:00 02/09/20 17:11 Buspar PO 10 mg BID RON Administration Carvedilol 12.5 mg 02/08/20 21:00 02/09/20 20:35 Coreg PO 12.5 mg Q12HR RON Administration Clopidogrel Bisulfate 75 mg 02/06/20 09:00 02/07/20 09:27 Plavix PO 75 mg DAILY RON Administration Dextrose 12.5 gm 02/05/20 17:56 Dextrose 50% Syringe IV PUSH PRN PRN Hypoglycemia Protocol Furosemide 40 mg 02/10/20 09:00 Lasix Tablet PO D
[2020-02-10 08:00] VITALS: BP 134/60; PULSE 58; PULSE 70; RESP 20; TEMP 36.8; O2SAT 100
[2020-02-10 08:10] LABS: Glucose Point of Care 219 (65-105)
[2020-02-10 08:51] VITALS: PULSE 61
[2020-02-10] MEDS: FUROSEMIDE 40 MG TABLET PO (08:51)
[2020-02-10] MEDS: lisinopriL 10 MG TABLET PO (08:51)
[2020-02-10] MEDS: busPIRone HCL 10 MG TABLET PO (08:51)
[2020-02-10] MEDS: carvediloL 12.5 MG TABLET PO (08:51)
[2020-02-10] MEDS: SIMVASTATIN 20 MG TABLET 80 MG PO (08:51)
--- NOTE | 2020-02-16 12:18 | P.DS_ITS ---
DS: Admitting Diagnosis Admitting Diagnosis Admitting Diagnosis: Shortness of breath. DS: Discharge Diagnosis Discharge Diagnosis (1) Acute exacerbation of congestive heart failure: Code(s): I50.9 - Heart failure, unspecified Status: Acute Assessment and Plan: * Patient diuresed with close monitoring of his volume status and renal function. * Echocardiogram returned with EF 35-40%, wall motion abnormality, and pulmonary hypertension 69. * TSH normal. * cardiology following.and possible cath after d/c * Lisnopril 10, coreg 25 bid and lasix 20 qd at d/c (2) Bradycardia: Code(s): R00.1 - Bradycardia, unspecified Status: Acute Assessment and Plan: * slow atrial fibrillation with intermittant paced at d/c. * carvedilol restarted after pacer. * restart anticoagulation per cardiology after pacemaker followup (3) Elevated troponin: Code(s): R79.89 - Other specified abnormal findings of blood chemistry Status: Acute Assessment and Plan: * Troponins have been flat , perhaps due to CHF. * , cardiology has seen and will proceed with ischemia evaluation , cath as outpatient if patient agrees (4) Renal failure: Code(s): N19 - Unspecified kidney failure Status: Acute Assessment and Plan: * He may very well have some chronic kidney disease but could be due to poor p erfusion as well. * creatinine down to 1.1 with diuresis at d/c (5) Pre-diabetes: Code(s): R73.03 - Prediabetes Status: Acute Assessment and Plan: * Metformin held as inpatient and restarted at d/c hemoglobin A1c.6.4 (6) Normocytic anemia: Code(s): D64.9 - Anemia, unspecified Status: Acute Assessment and Plan: * iron studies compatible with anemia chronic disease but B12 decreased to 232 so replaced with 1000 microgram IM 02/05 * Will need further follow up as outpatient with primary (7) Coronary artery disease: Code(s): I25.10 - Atherosclerotic heart disease of minto coronary artery without angina pectoris Status: Acute Assessment and Plan: * Status post CABG in 1999. * Carvedilol restarted 02/07 after pacer, continue clopidogrel and statin. * ischemia evaluation later date DS: Summary Hospital Course Hospital Course: 85-year-old with chronic AFib admitted with slow AFib with pauses in congestive heart failure and mild renal failure. Coreg was held and still has slow rhythm with pauses so ventricular pacer placed by Cardiology. Ejection fraction 35-40% by echo and did have slight elevation of troponins. With diuresis and pacer shortness of breath resolved and lungs cleared. Low- dose lisinopril was added to his Coreg and Lasix 20 mg daily he will follow-up cardiology for instituting of possible full anticoagulation later and possible cardiac catheterization. Significantly has mild normocytic anemia and B12 level was 232, did received 1000 micro g B12 IM x1 Time Spent with Patient Time attestation: Total time spent providing and/or coordinating discharge services:35 minutes Exam Harshil
--- NOTE | 2020-02-16 12:18 | PM.DS ---
DS: Admitting Diagnosis Admitting Diagnosis Admitting Diagnosis: Shortness of breath. DS: Discharge Diagnosis Discharge Diagnosis (1) Acute exacerbation of congestive heart failure: Code(s): I50.9 - Heart failure, unspecified Status: Acute Assessment and Plan: Patient diuresed with close monitoring of his volume status and renal function. Echocardiogram returned with EF 35-40%, wall motion abnormality, and pulmonary hypertension 69. TSH normal. cardiology following.and possible cath after d/c Lisnopril 10, coreg 25 bid and lasix 20 qd at d/c (2) Bradycardia: Code(s): R00.1 - Bradycardia, unspecified Status: Acute Assessment and Plan: slow atrial fibrillation with intermittant paced at d/c. carvedilol restarted after pacer. restart anticoagulation per cardiology after pacemaker followup (3) Elevated troponin: Code(s): R79.89 - Other specified abnormal findings of blood chemistry Status: Acute Assessment and Plan: Troponins have been flat , perhaps due to CHF. , cardiology has seen and will proceed with ischemia evaluation , cath as outpatient if patient agrees (4) Renal failure: Code(s): N19 - Unspecified kidney failure Status: Acute Assessment and Plan: He may very well have some chronic kidney disease but could be due to poor perfusion as well. creatinine down to 1.1 with diuresis at d/c (5) Pre-diabetes: Code(s): R73.03 - Prediabetes Status: Acute Assessment and Plan: Metformin held as inpatient and restarted at d/c hemoglobin A1c.6.4 (6) Normocytic anemia: Code(s): D64.9 - Anemia, unspecified Status: Acute Assessment and Plan: iron studies compatible with anemia chronic disease but B12 decreased to 232 so replaced with 1000 microgram IM 02/05 Will need further follow up as outpatient with primary (7) Coronary artery disease: Code(s): I25.10 - Atherosclerotic heart disease of viejas coronary artery without angina pectoris Status: Acute Assessment and Plan: Status post CABG in 1999. Carvedilol restarted 02/07 after pacer, continue clopidogrel and statin. ischemia evaluation later date DS: Summary Hospital Course Hospital Course: 85-year-old with chronic AFib admitted with slow AFib with pauses in congestive heart failure and mild renal failure. Coreg was held and still has slow rhythm with pauses so ventricular pacer placed by Cardiology. Ejection fraction 35-40% by echo and did have slight elevation of troponins. With diuresis and pacer shortness of breath resolved and lungs cleared. Low-dose lisinopril was added to his Coreg and Lasix 20 mg daily he will follow-up cardiology for instituting of possible full anticoagulation later and possible cardiac catheterization. Significantly has mild normocytic anemia and B12 level was 232, did received 1000 micro g B12 IM x1 Time Spent with Patient Time attestation: Total time spent providing and/or coordinating discharge services:35 minutes Exam Narrative: Exam Narrative: condition on discharge blood pressure 138/56 pulse is 60 with ectopics sat 95% on room air lungs clear CV regular rate rhythm dressing pacemaker site dry and intact abdomen soft nontender no masses extremities without edema neuro alert in about taking diet well Discharge Plan Discharge Attending physician on discharge: Josh Griffin Consulting providers: Faustino Grimes ; Antelmo Tavarez ; Stehp Bentley
== END 2020-02-10 09:50 | disposition home or self-care (01) | DRG 244 ==
LOC: ANHED 14:02 → ANHICU 14:23 → ANHIMU 02-09 18:25
PROVIDERS: Emergency Medicine; Internal Medicine; Physician Assistant; Specialist; Admitting Provider Internal Medicine; Emergency Provider General Practice; PCP Family Medicine Adolescent Medicine; Visit Provider Internal Medicine
PROC: 0JH604Z Insertion of Pacemaker, Single Chamber into Chest Subcutaneous Tissue and Fascia, Open Approach (ICD-10-PCS; CPT 33210; principal; 2020-02-08 11:30)
DX: I48.20 Chronic atrial fibrillation, unspecified (principal); I27.20 Pulmonary hypertension, unspecified; I11.0 Hypertensive heart disease with heart failure; I50.9 Heart failure, unspecified; N19 Unspecified kidney failure; I25.5 Ischemic cardiomyopathy; R79.89 Other specified abnormal findings of blood chemistry; R60.0 Localized edema; R73.03 Prediabetes; D64.9 Anemia, unspecified; I25.10 Atherosclerotic heart disease of native coronary artery without angina pectoris; I25.2 Old myocardial infarction; E78.5 Hyperlipidemia, unspecified; K21.9 Gastro-esophageal reflux disease without esophagitis; Z79.84 Long term (current) use of oral hypoglycemic drugs; Z79.899 Other long term (current) drug therapy; Z95.1 Presence of aortocoronary bypass graft
CPT/HCPCS: 33207; 36415; 71045; 71046; 80048; 80053; 80076; 80162; 82607; 82728; 82746; 83036; 83540; 83550; 83735; 83880; 84439; 84443; 84480; 84484; 85025; 85027; 85610; 85730; 93005; 93970; 94762; 99285; A9270; C1779; C1786; C8929; J0690; J1650; J1815; J1940; J2250; J3010; J3420; J3475; J7030; J7040; Q9957

== ENCOUNTER 2020-02-16 01:56 | Emergency (ER) | payer MEDICARE, SELFPAY ==
--- NOTE | ~2020-02-16 | CT_ITS ---
EXAMINATION: CTA UE RT DATE: 02/16/2020 03:12 INDICATION: Decreased radial ulnar pulses TECHNIQUE: Computed tomographic angiography (CTA) of the abdomen, pelvis, and both lower extremities was performed with 100 mL Omnipaque-350 intravenous contrast. The dose-length product (DLP) was 1655. 39 mGy-cm. Maximum intensity projection 3D-reconstructions of the arteries were created by the techno logist on a separate workstation. Automated exposure control and iterative reconstruction technique w ere employed. COMPARISON: None. FINDINGS: The examination is limited by motion artifact, streak artifact, and relatively poor opacifi cation of the upper extremity vasculature. There is calcified atherosclerosis in at least moderate st enosis of the radial artery. Areas of atherosclerosis and stenosis are also suggested in the ulnar ar lillian. IMPRESSION: 1. Limited examination due to several factors detailed above. 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 Reviewed, dictated and finalized at location A. IMPRESSION: 1. Limited examination due to several factors detailed above. Findings suggesti ve of moderate stenosis of the radial artery.
--- NOTE | ~2020-02-16 | CT_ITS ---
EXAMINATION: CT brain wo con INDICATION: Right upper extremity weakness COMPARISON: None TECHNIQUE: Standard unenhanced head CT. The dose-length product (DLP) was 681.00 mGy-cm. The mA was a djusted according to patient size. Iterative reconstruction technique was employed. FINDINGS: There is no acute intraparenchymal hemorrhage. No evidence of mass lesion. No evidence of a cute infarction. There is mild periventricular and subcortical hypodensity probably related to small vessel ischemic disease. There is mild prominence of the sulci and ventricles related to cerebral atr ophy. Intracranial calcified cerebral atherosclerosis is noted. There is prominent extra-axial CSF de nsity in the left posterior fossa, possibly an arachnoid cyst. There is no midline shift. The orbits and soft tissues are unremarkable. There is partial opacification and sclerotic wall thickening of t he left maxillary sinus, consistent with chronic sinusitis. IMPRESSION: 1. No acute intracranial abnormality. 2. Age related findings. Reviewed, dictated and finalized at location A.
[2020-02-16 01:55] VITALS: BP 141/64; PULSE 59; RESP 20; TEMP 37; O2SAT 97
[2020-02-16 02:38] LABS: Basophils Percent Auto 0.4 % (0.2-1.2); Eosinophils Absolute Auto 0.1 K/mm3 (0-0.3); Eosinophils Percent Auto 1.6 % (0-4.4); Hematocrit 34.5 % (42.0-52.0); Hemoglobin 11.1 g/dL (14.0-18.0); Immature Granulocyte Absolute 0.02 K/mm3 (0.00-0.031); Immature Granulocyte Percent A 0.4 % (0-0.5); Lymphocytes Percent Auto 16.3 % (18.3-44.2); Mean Corpuscular HGB Conc 32.2 g/dl (32-36); Mean Corpuscular Hemoglobin 28.5 pg (26-34); Mean Corpuscular Volume 88.5 fl (80-100); Mean Platelet Volume 11.5 fl (7.4-10.4); Monocytes Absolute Auto 0.5 K/mm3 (0.1-0.6); Monocytes Percent Auto 8.5 % (2.6-8.5); Neutrophils Percent Auto 72.8 % (45.5-73.1); Platelet Count Result 149 k/mm3 (150-375); White Blood Count 5.5 K/mm3 (4.5-10.0)
[2020-02-16 02:55] LABS: Anion Gap 9 mmol/L (8-16); Blood Urea Nitrogen 52 mg/dL (9-20); Calcium 9.1 mg/dL (8.4-10.2); Carbon Dioxide 27 mmol/L (22-30); Chloride 103 mmol/L (98-107); Estimated CRCL calculation 44 ml/min; Estimated Glomerular Filt Rate 58; Glucose 138 mg/dL (75-110); INR 1.2; Lactic Acid Reflex 1.1 mmol/L (0.7-2.1); Potassium 5.1 mmol/L (3.4-5.0); Prothrombin Time 14.5 Seconds (11.1-14.7); Sodium 139 mmol/L (137-145)
[2020-02-16 02:56] LABS: Partial Thromboplastin Time 32.1 SECONDS (22.3-36.8)
--- NOTE | 2020-02-16 03:03 | ED.GENADULT ---
HPI - General Adult General Chief complaint: Extremity Injury, Upper Stated complaint: arm pain Time Seen by Provider: 02/16/20 02:06 History of Present Illness HPI narrative: Patient is an 85-year-old male who presents ER with right upper extremity pain beginning distal biceps region going down to the hand. Patient reports he went to bed around midnight and about 15 minutes later he started having pain in his right forearm. He also reports that his arm went numb where he is experiencing the pain. Symptoms have persisted. Denies trauma. Feels like he is having trouble zipping up his pants. No chest pain or shortness of breath. Recently hospitalized for pacemaker placement. He takes Plavix. No slurred speech or facial droop. No ataxia. Related Data Home Medications Medication Instructions Recorded Confirmed buspirone 10 mg PO BID 02/05/20 02/05/20 carvedilol 25 mg PO BID 02/05/20 02/05/20 clopidogrel 75 mg PO DAILY 02/05/20 02/05/20 furosemide 20 mg PO BID 02/05/20 02/05/20 metformin 1,000 mg PO BID 02/05/20 02/05/20 niacin 500 mg PO BID 02/05/20 02/05/20 simvastatin 80 mg PO DAILY 02/05/20 02/05/20 Allergies Allergy/AdvReac Type Severity Reaction Status Date / Time No Known Drug Allergies Allergy Verified 02/05/20 18:11 Review of Systems Review of Systems: All systems reviewed & are unremarkable except as noted in HPI and below Cardiovascular: Cardiovascular: Denies chest pain and Denies radiating jaw, neck or arm pain Respiratory: Respiratory: Denies cough and Denies dyspnea Gastrointestinal: Gastrointestinal: Denies abdominal pain, Denies nausea and Denies vomiting Neurologic: Reports numbness and Reports weakness [facility] Past Medical History Medical History (Updated 02/16/20 @ 04:39 by Robbie Mi MD) Coronary artery disease With history of myocardial infarction in 1999. Status post 4 vessel CABG. Gastroesophageal reflux disease Hypertension Normocytic anemia Pre-diabetes Surgical History Surgical History (Updated 02/05/20 @ 18:06 by Steph Bentley PA-C) History of cataract extraction History of coronary artery bypass graft (~02/2000) BROOKS to LAD, SVG to RCA, SVG to circumflex. History of coronary artery stent placement Left circumflex. Social History Social History Social History: The patient is And lives in his own home in [place]. he has 3 children. He is a lifelong nonsmoker. He drinks perhaps 1 beer a week. No illicit substance use. He designates his daughter, Lynn Merchant, as his surrogate decision maker and he wishes to be a full code. Smoking status: Never smoker Alcohol intake: current Drinks per week: 3 Substance use: never Substance use type: does not use Gender identity (if verbalized by the patient): Male Spiritual care concerns: No Exam Narrative: Exam Narrative: GENERAL: Well-appearing, well-nourished, and in no acute distress. HEAD: Normocephalic, atraumatic. ENT: Mucous membranes moist. CHEST: Clear to auscultation. No respiratory distress. HEART: Bradycardic and irregular. Decreased right radial pulse compared to left with slower capillary refill of the right hand compared to left. ABDOMEN: Soft, nontender, nondistended, normal active bowel sounds. EXTREMITIES: Normal range of motion and normal strength of upper extremities.. No edema. Right upper extremity hand cooler than the left with slow cap refill. SKIN: Warm, dry, no rash. NEURO: No sharp touch deficit of the upper extremities. No upper or lower extremity drift. Cranial nerves II through XII intact. Alert and oriented x3. Clear speech. PSYCH: Normal mood and affect. Course Course Emergency Course: Symptoms persisting. CTA limited due to motion but there is an area of low density in the brachial artery at the level of the elbow and he additionally has moderate grade segmental stenosis of the main arteri
[2020-02-16 03:14] VITALS: BP 138/55; PULSE 64; RESP 19; O2SAT 98
[2020-02-16] MEDS: HEPARIN SODIUM 5,000 UNITS/ML VIAL 7000 UNITS IV PUSH (04:30)
[2020-02-16 04:34] VITALS: BP 136/80; PULSE 59; RESP 18; O2SAT 97
[2020-02-16] MEDS: HEPARIN SOD/D5W 100 UNITS/ML 25,000 UNITS/250 ML BAG 15 UNITS IV CONT (04:59)
--- NOTE | 2020-02-16 05:02 | PC.NURSE ---
0439: CALLED [facility] TO TRANSPORT TO [facility] ER 'EMERGENT'. ETA 0630 (2 HOURS). 0443: CALLED [facility] TO TRANSPORT - DECLINED - SHIFT CHANGE - NOT ENOUGH STAFF. 0445: CALLED [facility] - DECLINED. 0447: CALLED [facility] BACK AND CHANGED TO [facility]....ETA 17 MINUTES.
[2020-02-16 05:16] VITALS: BP 138/89; PULSE 60; RESP 18; TEMP 36.6; O2SAT 95
== END 2020-02-16 05:18 | disposition short-term general hospital (02) ==
PROVIDERS: Emergency Provider Emergency Medicine; PCP Family Medicine Adolescent Medicine
DX: I74.2 Embolism and thrombosis of arteries of the upper extremities (principal); I25.10 Atherosclerotic heart disease of native coronary artery without angina pectoris; I25.2 Old myocardial infarction; Z95.1 Presence of aortocoronary bypass graft; K21.9 Gastro-esophageal reflux disease without esophagitis; I10 Essential (primary) hypertension; R73.03 Prediabetes; Z79.84 Long term (current) use of oral hypoglycemic drugs; Z98.49 Cataract extraction status, unspecified eye; Z95.5 Presence of coronary angioplasty implant and graft; D64.9 Anemia, unspecified
CPT/HCPCS: 36415; 70450; 73206; 80048; 83605; 85025; 85610; 85730; 96365; 99285; J1644; Q9967

== ENCOUNTER 2020-09-23 19:58 | Emergency (ER) | payer MEDICARE, SELFPAY ==
--- NOTE | ~2020-09-23 | XR_ITS ---
EXAMINATION: XR foot RT min 3V DATE: 09/23/2020 20:33 INDICATION: Injury to the right toes. TECHNIQUE: 4 views of right foot were obtained. COMPARISON: Right foot radiographs 10/28/2014 FINDINGS: Bone alignment is normal. No fracture. There is mild osteoarthritis of many of the interpha langeal joints and midfoot joints. There is an enthesophyte at plantar aspect of calcaneal tuberosity . There is soft tissue swelling of the foot. IMPRESSION: 1. Mild polyarticular osteoarthritis. Reviewed, dictated and finalized at location A.
[2020-09-23 19:59] VITALS: BP 127/109; PULSE 55; RESP 16; TEMP 36.5; O2SAT 97
--- NOTE | 2020-09-23 21:04 | ER_ITS ---
This report was moved to the correct visit, [id number] on 11/06/20. Original report was signed by Val Gutierrez PA-C on 09/23/202129 and Robbie Mi MD on 09/23/202149. HPI - General Adult General Chief complaint: Wound/Laceration Stated complaint: right foot lac post fall Source: patient Mode of arrival: ambulatory Limitations: no limitations History of Present Illness HPI narrative: Patient presents with chief complaints of lacerations under his third and fourth toes that he sustained after kicking a piece of furniture earlier this evening. Daughter states they attempted to apply pressure to the wounds however they continued to bleed and patient is on Plavix so EMS was called. Patient denies falling and hitting his head, having any loss of consciousness or any other areas of injury or discomfort. Patient reports chronically swelling bilateral lower legs. Related Data Home Medications Medication Instructions Recorded Confirmed buspirone 10 mg PO BID 02/05/20 02/05/20 carvedilol 25 mg PO BID 02/05/20 02/05/20 clopidogrel 75 mg PO DAILY 02/05/20 02/05/20 furosemide 20 mg PO BID 02/05/20 02/05/20 metformin 1,000 mg PO BID 02/05/20 02/05/20 niacin 500 mg PO BID 02/05/20 02/05/20 simvastatin 80 mg PO DAILY 02/05/20 02/05/20 Allergies Allergy/AdvReac Type Severity Reaction Status Date / Time No Known Drug Allergies Allergy Verified 02/05/20 18:11 Review of Systems Review of Systems: Narrative: CONSTITUTIONAL: Denies fever, chills, or sweats. EYES: Denies visual changes, redness, or discharge. ENT: Denies rhinorrhea, congestion, sore throat, or otalgia. CARDIOVASCULAR: Denies chest pain, palpitations, or edema. RESPIRATORY: Denies cough or dyspnea. GASTROINTESTINAL: Denies abdominal pain, nausea, vomiting, or diarrhea. GENITOURINARY: Denies dysuria or hematuria. SKIN: Reports laceration denies rash or itching. MUSCULOSKELETAL: Denies back pain, joint pain, or myalgia. NEUROLOGIC: Denies headache, numbness, dizziness, or weakness. PSYCHIATRIC: Denies anxiety or depression. [facility] Past Medical History Medical History (Updated 09/23/20 @ 21:10 by Val Gutierrez PA-C) Coronary artery disease With history of myocardial infarction in 1999. Status post 4 vessel CABG. Gastroesophageal reflux disease Hypertension Normocytic anemia Pre-diabetes Surgical History Surgical History (Updated 02/05/20 @ 18:06 by Steph Bentley PA-C) History of cataract extraction History of coronary artery bypass graft (~02/2000) BROOKS to LAD, SVG to RCA, SVG to circumflex. History of coronary artery stent placement Left circumflex. Family History Family History Father Renal cell carcinoma Social History Social History Social History: The patient is And lives in his own home in [place]. he has 3 children. He is a lifelong nonsmoker. He drinks perhaps 1 beer a week. No illicit substance use. He designates his daughter, Lynn Merchant, as his surrogate decision maker and he wishes to be a full code. Smoking status: Never smoker Alcohol intake: current Drinks per week: 3 Substance use: never Substance use type: does not use Gender identity (if verbalized by the patient): Male Spiritual care concerns: No Exam Narrative: Exam Narrative: GENERAL: Well-appearing, well-nourished, and in no acute distress. HEAD: Normocephalic, atraumatic. EYES: PERRLA and EOMI. ENT: Nares clear, no rhinorrhea or epistaxis. Mucous membranes moist.
[2020-09-23 21:49] VITALS: BP 129/94; PULSE 58; RESP 16; TEMP 36.3; O2SAT 98
== END 2020-09-23 21:50 | disposition home or self-care (01) ==
LOC: ANHED 20:03
PROVIDERS: Emergency Provider Emergency Medicine; PCP Family Medicine Adolescent Medicine
DX: S91.311A Laceration without foreign body, right foot, initial encounter (principal); I25.10 Atherosclerotic heart disease of native coronary artery without angina pectoris; Z95.1 Presence of aortocoronary bypass graft; K21.9 Gastro-esophageal reflux disease without esophagitis; I10 Essential (primary) hypertension; D64.9 Anemia, unspecified; R73.03 Prediabetes; Z79.84 Long term (current) use of oral hypoglycemic drugs; W22.03XA Walked into furniture, initial encounter
CPT/HCPCS: 12002; 73630; 99283

== ENCOUNTER 2020-09-26 16:19 | Inpatient (IN) | payer OTHER, MEDICARE, SELFPAY ==
[2020-09-26] VITALS (38 sets, daily range): BP systolic 45–148; BP diastolic 37–92; PULSE 50–58; RESP 9–19; TEMP 31.2–35.6; O2SAT 90–100; BMI 31.1
--- NOTE | ~2020-09-26 | CT_ITS ---
EXAMINATION: CT abdomen pelvis wo con DATE: 09/26/2020 18:53 INDICATION: Abdominal pain. TECHNIQUE: Computed tomography (CT) of the abdomen and pelvis was performed without intravenous contr ast. Automated exposure control and iterative reconstruction technique were employed. The dose-length product was 1616.58 mGy-cm. COMPARISON: None. FINDINGS: The visualized portions of the lung bases demonstrate moderate-sized right and small left p leural effusions. There are airspace opacities in the lungs bilaterally with a dependent predominance , likely atelectasis. Cardiomegaly is noted. There are coronary artery calcifications. There are guzmán ges of coronary artery bypass grafting. No pericardial effusion. There is a pacer wire in right ventr icle. The liver demonstrates a nodular surface contour, consistent with cirrhosis. The spleen is norm al in size. The gallbladder is normal in size and contains a gallstone. Gallbladder wall thickening s een, likely secondary to interstitial edema and chronic liver disease. The pancreas, adrenal glands, and kidneys are normal. There is an umbilical hernia containing fat. The prostate is mildly enlarged. There are bilateral inguinal hernias containing fat and ascites. The left inguinal hernia also conta ins a portion of the bladder. There are no dilated loops of bowel. The appendix is normal. There are no pathologically enlarged lymph nodes. There is a small volume of ascites. There are widespread gold rial calcifications. There is edema of the body wall fat and intra-abdominal fat. Bilateral gynecomas tia is noted. There is severe thoracic and lumbar spondylosis. There is a catheter tip in right exter nal iliac vein. IMPRESSION: 1. Moderate-sized right and small left pleural effusions. 2. Small volume of ascites. 3. Bilateral inguinal hernias. The left inguinal hernia contains a portion of the bladder. 4. Umbilical hernia containing fat. 5. Cirrhosis of the liver. Reviewed, dictated and finalized at location A. IMPRESSION: 1. Moderate-sized right and small left pleural effusions. 2. Small volume of ascites. 3. Bilateral inguinal hernias. The left inguinal hernia contains a portion of t he bladder. 4. Umbilical hernia containing fat. 5. Cirrhosis of the liver.
--- NOTE | ~2020-09-26 | XR_ITS ---
EXAMINATION: XR chest 1V portable DATE: 09/29/2020 05:44 INDICATION: Acute respiratory failure. TECHNIQUE: A single frontal view of the chest was obtained. COMPARISON: Chest single view 09/28/2020 FINDINGS: The patient is rotated to his right. There is a moderate-sized right pleural effusion. Ther e are airspace opacities in right lung with a perihilar and basilar predominance. There are mild airs pace opacities at left lung base. No pneumothorax. Cardiomegaly is noted. Median sternotomy wires and mediastinal surgical clips are seen, likely from prior coronary artery bypass grafting. There is a l eft chest pacer with lead in right ventricle. A right upper extremity peripherally inserted central v enous catheter (PICC) is seen with tip in the superior vena cava. IMPRESSION: 1. Worsened moderate-sized right pleural effusion. 2. Airspace opacities in right lung and at left lung base, consistent with atelectasis or less likely pneumonia. 3. Cardiomegaly. Reviewed, dictated and finalized at location A. IMPRESSION: 1. Worsened moderate-sized right pleural effusion. 2. Airspace opacities in right lung and at left lung base, consistent with atel ectasis or less likely pneumonia. 3. Cardiomegaly.
--- NOTE | ~2020-09-26 | XR_ITS ---
XR chest 1V portable DATE: 09/28/2020 05:34 INDICATION: Acute respiratory failure TECHNIQUE: Portable AP chest on 09/28/2020 at 0514 hours COMPARISON: 09/26/2020 portable AP chest FINDINGS: Cardiomegaly. Left pacemaker lead in right ventricle. Status post sternotomy. There is pulmonary vascular congestion and redistribution. There are bilateral mid and lower lung rig ht greater than left infiltrates and pleural effusions, greater on the right. Osteopenia. IMPRESSION: Congestive heart failure, bilateral infiltrates, increased since 09/26/2020 Reviewed, dictated and finalized at location A.
--- NOTE | ~2020-09-26 | XR_ITS ---
EXAMINATION: [id number]_CR DATE: 10/01/2020 09:53 INDICATION: Right pleural effusion status post thoracentesis. TECHNIQUE: A single frontal view of the chest was obtained. COMPARISON: Chest single view at 5:06 AM FINDINGS: There is a small right pleural effusion. There are airspace opacities in right mid and lowe r lung zones and left lower lung zone. No pneumothorax. Cardiomegaly is noted. Median sternotomy wire s are noted. A right upper extremity peripherally inserted central venous catheter (PICC) is seen wit h tip in the superior vena cava. There is a left chest pacer with lead in right ventricle. IMPRESSION: 1. Small right pleural effusion with improvement status post thoracentesis. 2. Improved airspace opacities in right mid and lower lung zones and left lower lung zone, consistent with atelectasis versus pneumonia. 3. Cardiomegaly. Reviewed, dictated and finalized at location A.
--- NOTE | ~2020-09-26 | CT_ITS ---
EXAMINATION: CT brain wo con INDICATION: Transient alteration of awareness COMPARISON: 09/26/2020 TECHNIQUE: Standard unenhanced head CT. The dose-length product (DLP) was 681.00 mGy-cm. The mA was a djusted according to patient size. Iterative reconstruction technique was employed. FINDINGS: There is no acute intraparenchymal hemorrhage. No evidence of mass lesion. No evidence of a cute infarction. An arachnoid cyst is noted posterior to the left cerebellum. There is mild periventr icular and subcortical hypodensity probably related to small vessel ischemic disease. There is mild p rominence of the sulci and ventricles related to cerebral atrophy. Intracranial calcified cerebral at herosclerosis is noted. There are no extra-axial collections. There is no mass effect or midline shif t. Changes in the globes are likely from ocular lens surgery. There is partial opacification and wal l thickening of the left maxillary sinus, consistent with chronic sinusitis. IMPRESSION: 1. No acute intracranial abnormality. 2. Age related findings. 2. Chronic left maxillary sinusitis. Reviewed, dictated and finalized at location A.
--- NOTE | ~2020-09-26 | XR_ITS ---
EXAMINATION: XR barium swallow modified EXAM DATE: 10/02/2020 14:43 INDICATION: Failed speech evaluation. Dysphagia. TECHNIQUE: Modified barium esophagram was performed by myself to administered fluoroscopy, in conjun ction with speech pathologist who administered barium in varying consistencies as per speech patholog ist documentation. This was recorded on tape. Pulsed dose reduction fluoroscopy was used with fluor oscopic time of 1.7 minutes. A total of 1 images obtained for the exam. The DAP for this procedure was 1.2 Gycm2. FINDINGS: Oral stage: Adequate function. Pharyngeal phase: Reduced laryngeal adduction. Laryngeal penetration: Demonstrated during mastication. Aspiration: Demonstrated, solid cracker trial. Laryngeal sensitivity: Weak or absent. IMPRESSION: Aspiration demonstrated; Please refer to speech pathologist findings and specific feedin g recommendations. Reviewed, dictated and finalized at location A. IMPRESSION: Aspiration demonstrated; Please refer to speech pathologist findin gs and specific feeding recommendations.
--- NOTE | ~2020-09-26 | CT_ITS ---
EXAMINATION: CT brain wo con DATE: 09/26/2020 18:53 INDICATION: Mental status change. TECHNIQUE: Computed tomography (CT) of the head was performed without intravenous contrast. The mA wa s adjusted according to patient size. Iterative reconstruction technique was employed. The dose-lengt h product was 681.00 mGy-cm. COMPARISON: Head CT 02/16/2020 FINDINGS: There is diffuse brain volume loss. There is an arachnoid cyst posterior to left cerebellum measuring 5.8 x 1.4 cm. There are scattered areas of low attenuation in the cerebral white matter. T here is no intracranial hemorrhage, acute infarction, or abnormal intracranial mass lesion. The ventr icles are normal in size. There is mucosal thickening and fluid in left maxillary sinus with thickeni ng and sclerosis of the sinus cancino, consistent with chronic sinusitis. There is mild mucosal thicken ing in the ethmoid and frontal sinuses. The mastoid air cells are normal. There is posterior scalp so ft tissue swelling. IMPRESSION: 1. Stable moderate nonspecific cerebral white matter disease, which likely represents chronic small v essel ischemic disease. 2. Chronic sinusitis. Reviewed, dictated and finalized at location A. IMPRESSION: 1. Stable moderate nonspecific cerebral white matter disease, which likely repr esents chronic small vessel ischemic disease. 2. Chronic sinusitis.
--- NOTE | ~2020-09-26 | XR_ITS ---
EXAMINATION: XR chest 1V portable DATE: 09/30/2020 05:27 INDICATION: Acute respiratory failure. TECHNIQUE: A single frontal view of the chest was obtained. COMPARISON: Chest single view 09/29/2020 FINDINGS: There is a moderate-sized right pleural effusion. There are airspace opacities in right per ihilar region and in left mid and lower lung zones. No pneumothorax. Cardiomegaly is noted. Median st ernotomy wires and mediastinal surgical clips are seen, likely from prior coronary artery bypass jac ting. There is a left chest pacer lead in right ventricle. A right upper extremity peripherally inser omer central venous catheter (PICC) is seen with tip in the superior vena cava. IMPRESSION: 1. Stable moderate-sized right pleural effusion. 2. Stable airspace opacities in right perihilar region and left mid and lower lung zones, consistent with atelectasis versus pneumonia. 3. Cardiomegaly. Reviewed, dictated and finalized at location A. IMPRESSION: 1. Stable moderate-sized right pleural effusion. 2. Stable airspace opacities in right perihilar region and left mid and lower l lgiia zones, consistent with atelectasis versus pneumonia. 3. Cardiomegaly.
--- NOTE | ~2020-09-26 | US_ITS ---
US renal BI DATE: 09/27/2020 13:57 INDICATION: Acute kidney injury. Abdominal pain. TECHNIQUE: Real-time imaging of the kidneys and urinary bladder COMPARISON: 09/26/[address] abdomen pelvis FINDINGS: The right kidney measures approximately 12.5 cm length, left kidney approximately 10.5 cm. No renal mass lesion or hydronephrosis is detected on either side. There is a Alejandro catheter in the urinary bladder. IMPRESSION: No renal mass lesion or hydronephrosis is detected Reviewed, dictated and finalized at Location A. Reviewed, dictated and finalized at location A.
--- NOTE | ~2020-09-26 | XR_ITS ---
EXAMINATION: XR chest 1V portable DATE: 10/01/2020 05:19 INDICATION: Acute respiratory failure. TECHNIQUE: A single frontal view of the chest was obtained on 2 radiographs. COMPARISON: Chest single view 09/30/2020 FINDINGS: The patient is rotated to his right. There is a moderate-sized right pleural effusion. Ther e are airspace opacities in the perihilar regions and at the lung bases. No pneumothorax. Cardiomegal y is noted. A right upper extremity peripherally inserted central venous catheter (PICC) is seen with tip in the superior vena cava. Median sternotomy wires are noted. There is a left chest pacer with l ead in right ventricle. IMPRESSION: 1. Stable moderate-sized right pleural effusion. 2. Stable airspace opacities in the perihilar regions and at the lung bases, consistent with atelecta sis versus pneumonia. 3. Cardiomegaly. Reviewed, dictated and finalized at location A. IMPRESSION: 1. Stable moderate-sized right pleural effusion. 2. Stable airspace opacities in the perihilar regions and at the lung bases, co nsistent with atelectasis versus pneumonia. 3. Cardiomegaly.
--- NOTE | ~2020-09-26 | XR_ITS ---
EXAMINATION: XR chest 1V INDICATION: Altered mental status TECHNIQUE: AP view of the chest is obtained. COMPARISON: 10/02/2020 FINDINGS: Cardiomegaly is noted. There are small, stable pleural effusions. No pneumothorax is identi fied. There are airspace opacities of the lung bases. Median sternotomy wires and mediastinal surgica l clips are seen, likely from prior coronary artery bypass grafting. A single lead cardiac pacemaker of the left chest wall ends with lead in expected location. IMPRESSION: 1. Small pleural effusions, stable. 2. Cardiomegaly. 3. Airspace opacities of the lower lung zones, consistent with atelectasis versus pneumonia. Reviewed, dictated and finalized at location A. IMPRESSION: 1. Small pleural effusions, stable. 2. Cardiomegaly. 3. Airspace opacities of the lower lung zones, consistent with atelectasis vers us pneumonia.
--- NOTE | ~2020-09-26 | XR_ITS ---
EXAMINATION: XR chest PICC line DATE: 09/28/2020 21:05 INDICATION: Central line placement. TECHNIQUE: A single frontal view of the chest was obtained. COMPARISON: Chest single view 09/28/2020 at 5:10 AM, CT abdomen and pelvis 09/26/2020 FINDINGS: The patient is rotated to his right. There is a small right pleural effusion. There are air space opacities at the lung bases. No pneumothorax. Cardiomegaly is noted. Median sternotomy wires ar e noted. There is a left chest pacer with lead in right ventricle. A right upper extremity peripheral ly inserted central venous catheter (PICC) is seen with tip in the superior vena cava. IMPRESSION: 1. PICC tip in the superior vena cava. 2. Stable small right pleural effusion. 3. Stable airspace opacities at the lung bases, likely atelectasis. 4. Cardiomegaly. Reviewed, dictated and finalized at location A.
--- NOTE | ~2020-09-26 | XR_ITS ---
EXAMINATION: XR chest 1V DATE: 09/26/2020 18:54 INDICATION: Weakness. TECHNIQUE: A single frontal view of the chest was obtained. COMPARISON: Chest 2 views 02/09/2020, CT abdomen and pelvis 09/26/2020 FINDINGS: There are moderate-sized right and small left pleural effusions. There are airspace opaciti es in right lung and at left lung base, likely atelectasis. No pneumothorax. Cardiomegaly is noted. M triston sternotomy wires and mediastinal surgical clips are seen, likely from prior coronary artery byp ass grafting. There is a left chest pacer with single lead in right ventricle. IMPRESSION: 1. Moderate-sized right and small left pleural effusions. 2. Airspace opacities in right lung and at left lung base, likely atelectasis. 3. Cardiomegaly. Reviewed, dictated and finalized at location A.
--- NOTE | ~2020-09-26 | US_ITS ---
EXAMINATION: US thoracentesis DATE: 10/01/2020 09:51 INDICATION: pleural effusion TECHNIQUE: The skin was prepped and draped in sterile fashion. 1% lidocaine was used for local anesth esia. Under ultrasound guidance, a 5 Fr catheter with trochar was advanced into the right pleural eff usion. Fluid was aspirated. The catheter was removed, and a dressing was applied. There were no immed iate complications. FINDINGS: Ultrasound images demonstrate a right pleural effusion and the catheter within the fluid. IMPRESSION: 1. Successful ultrasound-guided thoracentesis yielding 400 mL of clear, yellow fluid. Reviewed, dictated and finalized at location A.
--- NOTE | ~2020-09-26 | XR_ITS ---
EXAMINATION: XR chest 1V portable DATE: 10/02/2020 05:30 INDICATION: Acute respiratory failure. TECHNIQUE: A single frontal view of the chest was obtained. COMPARISON: Chest single view 10/01/2020 FINDINGS: The patient is rotated to his right. There are small pleural effusions, right worse than le ft. There are airspace opacities in all right lung zones with a perihilar and lower lung predominance . There are mild airspace opacities in left mid and lower lung zones. No pneumothorax or cardiomegaly is noted. Median sternotomy wires and mediastinal surgical clips are seen, likely from prior coronar y artery bypass grafting. There is a left chest pacer with single lead in right ventricle. IMPRESSION: 1. Stable small pleural effusions. 2. Worsened airspace airspace opacities in right lung and left mid and lower lung zones, consistent w ith atelectasis versus pneumonia. 3. Cardiomegaly. Reviewed, dictated and finalized at location A. IMPRESSION: 1. Stable small pleural effusions. 2. Worsened airspace airspace opacities in right lung and left mid and lower everett ng zones, consistent with atelectasis versus pneumonia. 3. Cardiomegaly.
--- NOTE | 2020-09-26 16:32 | ECG_ITS ---
Measurements Intervals [place] Rate: 49 P: GA: 0 QRS: -75 QRSD: 196 T: 99 QT: 579 QTc: 527 Interpretive Statements ELECTRONIC VENTRICULAR PACEMAKER BASELINE WANDER- V5-V6 NO FURTHER INTERPRETATION IS POSSIBLE ATYPICAL ECG Electronically Signed On 09-26-2020 20:14:22 CDT by Bro Addison D.O.
--- NOTE | 2020-09-26 16:45 | PC.NURSE ---
Pt's daughter at bedside. Dr. Riddle at bedside for rectal exam. Note guiac positive stool. Note when patient is rolled he has bruising, purpuish in color, to right hip and buttocks.
--- NOTE | 2020-09-26 16:50 | PC.NURSE ---
Pt's daughter states that the patient is a modified DNR. She wants compressions but no intubation.
--- NOTE | 2020-09-26 17:02 | PC.NURSE ---
Dr. Riddle at bedside attempting central line insertion.
[2020-09-26 17:07] LABS: Immature Granulocyte Absolute 0.01 K/mm3 (0.00-0.031); Immature Granulocyte Percent A 0.3 % (0-0.5); Immature Platelet Fraction Pct 10.2 % (0.9-11.2); Lymphocytes Absolute Auto 0.32 K/mm3 (0.9-3.2); Lymphocytes Percent Auto 8.2 % (18.3-44.2); Mean Corpuscular HGB Conc 30.3 g/dl (32-36); Mean Corpuscular Volume 92.6 fl (80-100); Mean Platelet Volume 12.7 fl (7.4-10.4); Monocytes Absolute Auto 0.2 K/mm3 (0.1-0.6); Monocytes Percent Auto 5.6 % (2.6-8.5); Neutrophils Absolute Auto 3.4 K/mm3 (1.3-6.7); Neutrophils Percent Auto 85.9 % (45.5-73.1); Platelet Count Result 51 k/mm3 (150-375); Red Blood Count 1.89 M/mm3 (4.6-6.20); Red Cell Distribution Width 17.3 % (11.5-14.5); White Blood Count 3.9 K/mm3 (4.5-10.0)
--- NOTE | 2020-09-26 17:09 | PC.NURSE ---
Unable to thread guidewire to right subclavian x2 attempts per Dr. Riddle. Good outflow noted. Pt becoming harder to arouse.
[2020-09-26] MEDS: LACTATED RINGERS 1,000 ML 999 ML (17:10)
[2020-09-26 17:13] LABS: Hemoglobin 5.3 g/dL (14.0-18.0)
[2020-09-26 17:14] LABS: Hematocrit 17.5 % (42.0-52.0)
[2020-09-26 17:15] LABS: Prothrombin Time 31.4 Seconds (11.1-14.7)
[2020-09-26 17:16] LABS: Partial Thromboplastin Time 65.3 SECONDS (22.3-36.8)
[2020-09-26 17:23] LABS: Alanine Aminotransferase 17 U/L (4-50); Albumin Level 2.6 g/dL (3.5-5.1); Alkaline Phosphatase 39 U/L (38-126); Anion Gap 8 mmol/L (8-16); Aspartate Amino Transferase 22 U/L (17-59); Bilirubin,Total 0.6 mg/dL (0.2-1.3); CRP 6.3 mg/dL (<1.0); Calcium 7.9 mg/dL (8.4-10.2); Carbon Dioxide 21 mmol/L (22-30); Chloride 108 mmol/L (98-107); Estimated CRCL calculation 19 ml/min; Estimated Glomerular Filt Rate 21; Glucose 109 mg/dL (75-110); Potassium 5.3 mmol/L (3.4-5.0); Sodium 137 mmol/L (137-145)
[2020-09-26 17:26] LABS: Glucose Point of Care 111 (65-105)
[2020-09-26 17:29] LABS: Troponin I < 0.012 ng/mL (0.000-0.034)
[2020-09-26 17:32] LABS: Lymphocytes Absolute Manual 0.31 K/mm3 (1.1-4.5); Monocytes Absolute Manual 0.11 K/mm3 (0.1-0.90); Monocytes Percent Manual 3 % (3-9); Neutrophils Percent Manual 89 % (46-73); Platelet Estimate Decreased (Adequate); Total Cells Counted 100
[2020-09-26 17:33] LABS: Anisocytosis 1+ (NORMAL); Macrocytosis 1+ (NORMAL)
[2020-09-26 17:34] LABS: Hypochromasia 1+ (NORMAL)
[2020-09-26 17:35] LABS: Rouleaux 1+ (NORMAL)
[2020-09-26 17:40] LABS: Blood Urea Nitrogen 133 mg/dL (9-20)
[2020-09-26] MEDS: NOREPINEPHRINE 8 MG/D5W 250 ML 8 MG/250 ML BAG 15 MG IV CONT (17:43)
--- NOTE | 2020-09-26 17:43 | ED.GENADULT ---
HPI - General Adult General Chief complaint: Altered Mental Status Stated complaint: poss seizure Time Seen by Provider: 09/26/20 16:26 Source: patient, family and EMS Mode of arrival: EMS Limitations: clinical condition History of Present Illness HPI narrative: Patient is 85 years old white male brought to the emergency room by ambulance because of seizure-like activity. Patient arrived to the emergency room lethargic, slow to answer questions and unsure why he is here. Patient daughter telling me that patient had a fall recently and he was generally weak prior to that. Also telling me that patient had black stool and was seen his family physician at that time who did blood work-up on him and did not do a rectal exam. Patient is DNR. Related Data Home Medications Medication Instructions Recorded Confirmed buspirone 10 mg PO BID 02/05/20 02/05/20 carvedilol 25 mg PO BID 02/05/20 02/05/20 furosemide 20 mg PO BID 02/05/20 02/05/20 metformin 1,000 mg PO BID 02/05/20 02/05/20 niacin 500 mg PO BID 02/05/20 02/05/20 simvastatin 80 mg PO DAILY 02/05/20 02/05/20 apixaban [Eliquis] mg 09/26/20 09/26/20 metolazone 09/26/20 pantoprazole PO 09/26/20 sacubitril-valsartan [Entresto] 09/26/20 09/26/20 Allergies Allergy/AdvReac Type Severity Reaction Status Date / Time No Known Allergies Allergy Verified 09/26/20 17:54 Review of Systems Review of Systems: ROS unobtainable: Yes unobtainable due to medical condition [facility] Past Medical History Medical History Coronary artery disease With history of myocardial infarction in 1999. Status post 4 vessel CABG. Gastroesophageal reflux disease Hypertension Normocytic anemia Pre-diabetes Surgical History Surgical History History of cataract extraction History of coronary artery bypass graft (~02/2000) BROOKS to LAD, SVG to RCA, SVG to circumflex. History of coronary artery stent placement Left circumflex. Family History Family History Father Renal cell carcinoma Social History Social History Social History: The patient is And lives in his own home in [place]. he has 3 children. He is a lifelong nonsmoker. He drinks perhaps 1 beer a week. No illicit substance use. He designates his daughter, Lynn Merchant, as his surrogate decision maker and he wishes to be a full code. Smoking status: Never smoker Alcohol intake: current Drinks per week: 3 Substance use: never Substance use type: does not use Gender identity (if verbalized by the patient): Male Spiritual care concerns: No Exam Narrative: Exam Narrative: General appearance: Well-developed, well-nourished, pale lips and conjunctiva Skin: Normal color, scattered bruises of the upper and lower extremities Head: Normocephalic, nontraumatic Eyes: Clear conjunctiva ENT: Oropharynx normal, ears normal, nose normal Neck: Supple, nontender Chest and respiratory: Airway patent, no respiratory distress, no accessory muscle use, slight labored breathing Heart: Regular rate/rhythm Abdomen: Soft, nontender, no organomegaly, quiet bowel sounds Vascular: Normal peripheral pulses, normal capillary refill. Neurologic: Alert and oriented ?3, SOURCING MANAGER is normal as tested, no gross motor deficit Course Course Emergency Course: Stable Consultations Consultation #1: Dr. Villalba Date: 09/26/20 Time: 17:58 Consultation #2: DR SORTO Date: 09/26/20 Time: 17:58 Vital Signs Vital signs: Vital Signs Pulse Rate 54 L
[2020-09-26 17:51] LABS: Lactic Acid Reflex 3.6 mmol/L (0.7-2.1)
[2020-09-26] MEDS: PANTOPRAZOLE SODIUM IV 40 MG VIAL IV PUSH (18:02)
--- NOTE | 2020-09-26 18:15 | PC.NURSE ---
Pt's daughter at bedside states that the patient started an antibiotic for a wound on his right foot.
--- NOTE | 2020-09-26 18:36 | PC.NURSE ---
Pt to CT via stretcher. SUJIT Choi at bedside speaking to daughter.
--- NOTE | 2020-09-26 19:00 | PM.IMHP ---
H&P: HPI History of Present Illness Date/Time: 09/26/20 19:00 Chief Complaint: Weak, lethargic. Narrative: This is an 85-year-old male with coronary artery disease status post CABG, congestive heart failure, hypertension, hyperlipidemia, pre diabetes, and chronic anemia presented to the emergency department earlier today via EMS from home with complaints of weakness and lethargy. He is only a fair historian and as such some of the following is obtained via a review of his electronic medical records as well as discussions with his daughter Lynn who is at bedside, with the patient's permission. Prior to the last few days he was living in his own home and doing well, however daughter reports that he has been having falls over the past couple of weeks. He attributes these falls to progressive weakness and dizziness and tells me he just has no energy. Within the past week and half or so he was seen by his primary care provider after he noticed that his stools were a bit dark. He was prescribed a PPI after reporting mild epigastric discomfort and labs were drawn however he does not believe that there was anything significant as he never received a phone call thereafter. In any event he continues to become progressively more weak and he has also been somewhat short of breath. Today he got up and ate some breakfast and then retired to his recliner and fell asleep. Daughter noted that he seemed to be a bit confused as he was telling the arm of the recliner to move over and give him some more room. She then went to check on him when his ?eyes rolled to the back of his head and his fists became clenched.? She was afraid perhaps he had a loss of consciousness or a seizure and called 911. On arrival to the emergency department he was profoundly hypotensive with a blood pressure of 67/40. He is also hypothermic and is currently under a Lupe Hugger. Hemoglobin and hematocrit were 5.3 and 17.5 respectively and stool was Hemoccult positive. He has not passed any stool since coming to the hospital. At the time my evaluation he is complaining of increasing shortness of breath and feeling lightheaded. He continues to have mild epigastric tenderness. He denies fever and chills and in fact tells me that he is hot (temperature currently 90? F). No chest pain, pleuritic pain, or palpitations. He has not had any vomiting. Complains that he has to urinate although Alejandro is in place. Review of Systems Review of Systems: Narrative: Twelve systems were reviewed with pertinent positives and negatives as per HPI. No headache. Denies vertigo. No focal weakness or paresthesias. He denies cold and flu symptoms. No cough. Weight has remained stable. No history of malignancy. He reports that he bruises easily. No epistaxis or gingival bleeding. No known history of liver disease however imaging today shows cirrhosis. Except as documented, all other systems were reviewed and are negative. [facility] Past Medical History Medical History (Updated 09/26/20 @ 23:55 by Steph Bentley PA-C) Arthritis Chronic anticoagulation Congestive heart failure Ejection fraction was 35 to 40% on echocardiogram in January 2020. Severe pulmonary hypertension also noted. Several wall motion abnormalities as well. Coronary artery disease With history of myocardial infarction in 1999. Status post 4 vessel CABG. 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 Surgical History Surgical History (Updated 09/26/20 @ 23:03 by Steph Bentley PA-C) History of cataract extraction History of coronary artery bypass graft (~02/2000) BROOKS to LAD, SVG to RCA, SVG to circumflex. History of coronary artery stent placement Left circumflex. History of vascular surgery (~01/2020) The patient believes that he had a thrombectomy of a right upper extremity arterial t
--- NOTE | 2020-09-26 19:10 | PC.NURSE ---
Pt returns from CT. Awakens easily but resting with eyes closed. Preparing to initate blood.
--- NOTE | 2020-09-26 19:46 | PC.NURSE ---
Report to ICU. KATHARINE Holden, given report and to transport pt to ICU.
--- NOTE | 2020-09-26 20:00 | ADMGEN ---
This patient, Torito Mcleod, was admitted to Intensive Care Unit-1. Patient/family oriented to hospital policies and general routines including ID bracelet, bed and alarms, visiting hours, pain management, procedures, bathroom and other care routines, personal items, smoking policy, room service/diet, and visiting hours. Information on how to activate the Rapid Response Team has been discussed. Patient/Family are encouraged to report perceived risks to care and to ask questions if they do not understand what they are told or what they should do.
[2020-09-26 20:38] LABS: Reflex Lactic Acid Yes or No Add Lactic
--- NOTE | 2020-09-26 21:20 | PC.NURSE ---
1999- Patient brought up from ER with levophed going at 18mcg/min
[2020-09-26 21:35] LABS: Lactic Acid 3.3 mmol/L (0.7-2.1)
[2020-09-26] MEDS: NOREPINEPHRINE 8 MG/D5W 250 ML 8 MG/250 ML BAG 37.5 MG IV CONT (21:36)
[2020-09-26 21:40] LABS: Alanine Aminotransferase 18 U/L (4-50); Albumin Level 2.9 g/dL (3.5-5.1); Alkaline Phosphatase 43 U/L (38-126); Anion Gap 10 mmol/L (8-16); Aspartate Amino Transferase 23 U/L (17-59); Bilirubin,Total 0.8 mg/dL (0.2-1.3); Calcium 7.8 mg/dL (8.4-10.2); Carbon Dioxide 19 mmol/L (22-30); Chloride 108 mmol/L (98-107); Estimated CRCL calculation 22 ml/min; Estimated Glomerular Filt Rate 22; Glucose 143 mg/dL (75-110); Potassium 5.7 mmol/L (3.4-5.0); Sodium 137 mmol/L (137-145)
[2020-09-26 21:47] LABS: INR 2.9; Prothrombin Time 30.6 Seconds (11.1-14.7)
[2020-09-26 21:48] LABS: Partial Thromboplastin Time 68.7 SECONDS (22.3-36.8)
[2020-09-26 21:52] LABS: Fibrinogen 276 mg/dl (215-510)
[2020-09-26 21:54] LABS: Blood Urea Nitrogen 128 mg/dL (9-20)
[2020-09-26 22:10] LABS: D Dimer 19.74 ug/mL (<0.48)
[2020-09-26 23:29] LABS: Alveolar/Arterial O2 Gradient 36.1 mmHg; Base Excess ABG -8.4 mEq/l (+/-2.0); Carboxyhemoglobin 0.3 % THb (0-2.0); Fractional Inspired Oxygen 32 %; HCO3 ABG 18.3 mEq/l (22.0-26.0); Methemoglobin ABG 0.3 %THb (0-1.5); Oxygen Content ABG 11.4 %vol (16.0-22.0); Oxygen Saturation ABG 98.4 % (95.0-100.0); PCO2 ABG 42.9 mmHg (35.0-45.0); PO2 ABG 141.9 mmHg (80.0-100.0); PO2 FiO2 Ratio Arterial Blood 4.43 %; Reduced Hemoglobin 2.4 %THb (0-5.0); Total Hemoglobin 8.1 g/dL (12.0-18.0)
[2020-09-26 23:31] LABS: Device NASAL CANNULA; Modified Allen's Test Pass; Site Drawn RIGHT RADIAL; pH ABG 7.247 (7.350-7.450)
[2020-09-26] MEDS: VASOPRESSIN INJ 100 UNITS in DEXTROSE 5% 95 ML IV CONT (23:48)
[2020-09-27] VITALS (54 sets, daily range): BP systolic 70–134; BP diastolic 33–97; PULSE 49–86; RESP 14–32; TEMP 33.2–36.6; O2SAT 90–100
[2020-09-27 00:13] LABS: Hematocrit 26.1 % (42.0-52.0); Immature Platelet Fraction Pct 12.1 % (0.9-11.2); Mean Corpuscular HGB Conc 30.7 g/dl (32-36); Mean Corpuscular Hemoglobin 27.9 pg (26-34); Mean Corpuscular Volume 90.9 fl (80-100); Mean Platelet Volume 13.1 fl (7.4-10.4); Platelet Count Result 79 k/mm3 (150-375); Red Blood Count 2.87 M/mm3 (4.6-6.20); Red Cell Distribution Width 16.2 % (11.5-14.5); White Blood Count 6.9 K/mm3 (4.5-10.0)
[2020-09-27] MEDS: HUMAN PROTHROMBIN COMPLEX(PCC) 3,000 UNITS in PREMIXIV 0 ML 504 UNITS IV CONT (00:21)
[2020-09-27 00:23] LABS: Add Urine Microscopic? YES; Appearance Urine Cloudy (Clear); Bilirubin Urine Negative (Negative); Blood Urine 3+ (Negative); Color Urine Yellow (Yellow); Glucose Urine UA Negative (Negative); Hyaline Casts Urine 20-29 /lpf; Ketones Urine Negative (Negative); Leukocyte Esterase Ur Negative LEU/UL (Negative); Mucus Urine Rare /lpf; Nitrate Urine Negative (Negative); Protein Urine 2+ mg/dL (Negative); RBC Urine >75 /hpf (0-2); Specific Grav Ur 1.015 (1.001-1.035); Squamous Epithelial Cell Urine Occasional /hpf (Few); Urobilinogen Urine Negative mg/dL (<2.0)
[2020-09-27 01:52] LABS: Glucose Point of Care 228 (65-105)
[2020-09-27] MEDS: CALCIUM GLUC 1,000 MG/NS 50 ML 1,000 MG/50 ML BAG 100 MG IVPB (01:54)
[2020-09-27] MEDS: DEXTROSE 50% 25 GM/50 ML SYRINGE IV PUSH (01:54)
[2020-09-27] MEDS: SODIUM BICARBONATE 8.4% 50 MEQ/50 ML SYRINGE IV PUSH ×2 (01:55→10:40)
[2020-09-27] MEDS: INSULIN HUMAN REGULAR (*BKC) 100 UNITS/ML 10 UNITS IV PUSH (01:56)
[2020-09-27] MEDS: NOREPINEPHRINE 8 MG/D5W 250 ML 8 MG/250 ML BAG 56.25 MG IV CONT ×5 (02:13→20:27)
[2020-09-27 02:45] LABS: Alveolar/Arterial O2 Gradient 76.5 mmHg; Base Excess ABG -9.8 mEq/l (+/-2.0); Carboxyhemoglobin 0.1 % THb (0-2.0); Fractional Inspired Oxygen 32 %; HCO3 ABG 18.1 mEq/l (22.0-26.0); Methemoglobin ABG 0.4 %THb (0-1.5); Oxygen Content ABG 11.6 %vol (16.0-22.0); Oxygen Saturation ABG 95.2 % (95.0-100.0); Oxyhemoglobin 94.3 % THb (90.0-100.0); PCO2 ABG 49.6 mmHg (35.0-45.0); PO2 ABG 93.6 mmHg (80.0-100.0); PO2 FiO2 Ratio Arterial Blood 2.92 %; Reduced Hemoglobin 5.2 %THb (0-5.0); Total Hemoglobin 8.6 g/dL (12.0-18.0)
[2020-09-27 02:47] LABS: Device NASAL CANNULA; Modified Allen's Test Pass; Site Drawn RIGHT RADIAL; pH ABG 7.179 (7.350-7.450)
[2020-09-27] MEDS: HYDROCORTISONE SODIUM SUCCINATE 100 MG/2 ML VIAL IV PUSH (02:55)
[2020-09-27 03:42] LABS: Hemoglobin 7.5 g/dL (14.0-18.0); Immature Granulocyte Absolute 0.03 K/mm3 (0.00-0.031); Immature Granulocyte Percent A 0.4 % (0-0.5); Lymphocytes Absolute Auto 0.32 K/mm3 (0.9-3.2); Lymphocytes Percent Auto 4.1 % (18.3-44.2); Mean Corpuscular HGB Conc 31.3 g/dl (32-36); Mean Corpuscular Hemoglobin 28.5 pg (26-34); Mean Corpuscular Volume 91.3 fl (80-100); Mean Platelet Volume 12.2 fl (7.4-10.4); Monocytes Absolute Auto 0.3 K/mm3 (0.1-0.6); Neutrophils Absolute Auto 7.2 K/mm3 (1.3-6.7); Neutrophils Percent Auto 91.5 % (45.5-73.1); Nucleated Red Blood Cells Perc 0.5 % (0.0-0.2); Platelet Count Result 76 k/mm3 (150-375); Red Blood Count 2.63 M/mm3 (4.6-6.20); Red Cell Distribution Width 15.9 % (11.5-14.5); White Blood Count 7.8 K/mm3 (4.5-10.0)
[2020-09-27] MEDS: SODIUM BICARBONATE 8.4% 50 MEQ/50 ML SYRINGE 100 MEQ IV PUSH (03:44)
[2020-09-27 03:53] LABS: Lactic Acid Reflex 2.5 mmol/L (0.7-2.1)
[2020-09-27 04:04] LABS: Alanine Aminotransferase 18 U/L (4-50); Albumin Level 2.7 g/dL (3.5-5.1); Alkaline Phosphatase 39 U/L (38-126); Anion Gap 10 mmol/L (8-16); Aspartate Amino Transferase 23 U/L (17-59); Calcium 7.8 mg/dL (8.4-10.2); Carbon Dioxide 20 mmol/L (22-30); Chloride 106 mmol/L (98-107); Estimated CRCL calculation 21 ml/min; Estimated Glomerular Filt Rate 20; Glucose 167 mg/dL (75-110); Potassium 5.2 mmol/L (3.4-5.0); Sodium 136 mmol/L (137-145)
[2020-09-27 04:58] LABS: Blood Urea Nitrogen 130 mg/dL (9-20)
[2020-09-27 05:00] LABS: Partial Thromboplastin Time 54.4 SECONDS (22.3-36.8)
[2020-09-27 05:05] LABS: INR 1.9; Prothrombin Time 22.8 Seconds (11.1-14.7)
[2020-09-27 05:21] LABS: Glucose Point of Care 105 (65-105)
[2020-09-27 07:28] LABS: Free T4 Free Thyroxine Reflex 1.09 ng/dL (0.78-2.19)
[2020-09-27 08:21] LABS: Glucose Point of Care 133 (65-105)
--- NOTE | 2020-09-27 09:32 | WPDCNINT ---
Assessment and Plan Assessment and plan (1) Shock: Code(s): R57.9 - Shock, unspecified Status: Acute Assessment and Plan: Hypovolemic versus septic Continue Levophed and vasopressin. Wean pressors if tolerated. Continue to monitor hemodynamics closely. Lactate is within normal range. He is mentating well though he is minimally confused. He is having significant oliguria. (2) GI bleed: Code(s): K92.2 - Gastrointestinal hemorrhage, unspecified Status: Acute Assessment and Plan: Gastroenterology service has been consulted. Continue PPI and octreotide drip at this time. He may need upper GI endoscopy though he seems very unstable with requirement of higher amount of pressors. He has received Kcentra last night. Continue to hold Eliquis. Continue to monitor H&H. PRBC transfusion if indicated. (3) Cirrhosis: Code(s): K74.60 - Unspecified cirrhosis of liver Status: Acute Assessment and Plan: Abdominal imaging showed cirrhosis with elevated INR and low platelet count on blood test. He does not have any known history of hepatitis B and C. will check hepatitis-B and C status. Gastroenterology service has been consulted their recommendations are pending. He is on empiric antibiotic which should cover SBP. He has minimal ascites. He is currently on PPI and Octrotide drip. (4) Chronic anticoagulation: Code(s): Z79.01 - residential (current) use of anticoagulants Status: Acute Assessment and Plan: Hold Eliquis because of ongoing GI bleed. He was given Kcentra last night. (5) Acute kidney injury: Code(s): N17.9 - Acute kidney failure, unspecified Status: Acute Assessment and Plan: Nephrology will be consulted. Continue to monitor intake output record. Continue to monitor renal parameters and electrolytes. Will give him sodium bicarb to correct metabolic acidosis. (6) Anemia: Qualifiers: Anemia type: unspecified type Qualified Code(s): D64.9 - Anemia, unspecified Code(s): D64.9 - Anemia, unspecified Status: Acute Assessment and Plan: Likely secondary to acute on chronic blood loss from GI tract. Continue monitor H&H. PRBC transfusion if indicated. (7) CAD (coronary artery disease): Code(s): I25.10 - Atherosclerotic heart disease of [place] coronary artery without angina pectoris Status: Acute Assessment and Plan: Continue to monitor. Echo will be ordered. Hold Eliquis, carvedilol, metolazone and Entresto. (8) Pleural effusion: Code(s): J90 - Pleural effusion, not elsewhere classified Status: Acute Assessment and Plan: May need pulmonary consult and thoracentesis specially on the right side both diagnostic and therapeutic purposes. Repeat chest x-ray. (9) Metabolic acidosis: Code(s): E87.2 - Acidosis Status: Acute Assessment and Plan: Has significant metabolic acidosis. I will put him on BiPAP to help him blow off CO2. Follow ABG. I will give him IV soda bicarb. Nephrology will be consulted. (10) Acute respiratory failure: Code(s): J96.00 - Acute respiratory failure, unspecified whether with hypoxia or hypercapnia Status: Acute Assessment and Plan: He is DNR DNI. He was offered intubation last night but he refused. He was placed on BiPAP support his respiratory system is he was having increased work of breathing and tachypnea. Additional Plan DVT prophylaxis with SCD boot because of ongoing GI bleeding GI prophylaxis with pantoprazole drip DNR DNI Critical care time spent 44 minutes I had a detailed discussion with daughter of the patient and explained his clinical situation. I have answered all her questions to her satisfaction. Due to a high probability of clinically significant, life threatening deterioration, the patient required my
[2020-09-27 11:18] LABS: Hepatitis B Surface Anti Res Negative; Hepatitis C Virus Antibody Negative (Negative)
--- NOTE | 2020-09-27 11:19 | P.CONNP_ITS ---
Assessment and Plan Assessment and plan (1) Acute kidney injury: Code(s): N17.9 - Acute kidney failure, unspecified Status: Acute Assessment and Plan: * due to ATN from: - hemodynamic instability/shock - pre-renal factors - concurrent use of ARB and diuretics prior to admission - severe anemia * oliguric if no anuric at this time * no critical electrolytes but he has a metabolic acidosis * he remains at high risk for the the need for renal replacement therapy/dialysis although his shock may make this difficult to peform * follow trend of repeat labs/electrolytes and urine output for now (2) Stage 3a chronic kidney disease: Code(s): N18.31 - Chronic kidney disease, stage 3a Status: Chronic Assessment and Plan: * baseline creatinine ~ 0.9 - 1.2mg/dl * likely due to hypertension, diabetes, vascular disease, and age-related change (3) Shock: Code(s): R57.9 - Shock, unspecified Status: Acute Assessment and Plan: * septic versus hypovolemic or combination of both?? * follow cultures and on empiric antibiotics * continue vasopressor therapy to maintain MAP (4) Acute respiratory failure: Code(s): J96.00 - Acute respiratory failure, unspecified whether with hypoxia or hypercapnia Status: Acute Assessment and Plan: * on BiPAP * DNR/DNI at this time (5) GI bleed: Code(s): K92.2 - Gastrointestinal hemorrhage, unspecified Status: Acute Assessment and Plan: * Gastroenterology consulted * complicated by previous anticaogulation and new finding of liver cirrhosis * PRBC transfusion per protocol * follow H/H (6) Metabolic acidosis: Code(s): E87.2 - Acidosis Status: Acute Assessment and Plan: * as noted on admission * lactic acid noted * due to metformin use along with MINAL(?) * compensated with bicarb fluids * follow trend (7) Cirrhosis: Code(s): K74.60 - Unspecified cirrhosis of liver Status: Acute Assessment and Plan: * as noted by admission imaging * hepatitis studies reviewed * Gastroenterology to follow History of Present Illness Reason for Consult Consult date: 09/27/20 Reason for consult: acute renal failure (on chronic kidney disease) Chief Complaint Chief complaint: Weakness, hypotension, GI bleed, anemia History of Present Illness Narrative: The patient is a 85-year-old male with a past medial history as outlined below who presented to the [facility] ER via EMS from home with complaints of weakness and lethargy along with possible seizure activity. Most of the information I have obtained is from review of the electronic medical record and discussion with the medical personnel involved in his care as the patient is unable to give me specific details of the events that led to his presentation and admission to the hospital. Apparently, over last few weeks, the patient has had frequent falls. Appa rently, he states that he has felt that his weakness and overt dizziness has led to these falls and despite all conservative therapy feels that he just does not have enough energy. He apparently noted that his stools had been somewhat black and tarry and went to see his PCP for this. Associated symptoms including some mild epigastric discomfort and labs were apparently done and he was empirically started on a proton pump inhibitor but I am unclear if any other further intervention was done. His weakness continued to progressively get worse and
--- NOTE | 2020-09-27 11:19 | PM.CNNEP ---
Assessment and Plan Assessment and plan (1) Acute kidney injury: Code(s): N17.9 - Acute kidney failure, unspecified Status: Acute Assessment and Plan: due to ATN from: - hemodynamic instability/shock - pre-renal factors - concurrent use of ARB and diuretics prior to admission - severe anemia oliguric if no anuric at this time no critical electrolytes but he has a metabolic acidosis he remains at high risk for the the need for renal replacement therapy/dialysis although his shock may make this difficult to peform follow trend of repeat labs/electrolytes and urine output for now (2) Stage 3a chronic kidney disease: Code(s): N18.31 - Chronic kidney disease, stage 3a Status: Chronic Assessment and Plan: baseline creatinine ~ 0.9 - 1.2mg/dl likely due to hypertension, diabetes, vascular disease, and age-related change (3) Shock: Code(s): R57.9 - Shock, unspecified Status: Acute Assessment and Plan: septic versus hypovolemic or combination of both?? follow cultures and on empiric antibiotics continue vasopressor therapy to maintain MAP (4) Acute respiratory failure: Code(s): J96.00 - Acute respiratory failure, unspecified whether with hypoxia or hypercapnia Status: Acute Assessment and Plan: on BiPAP DNR/DNI at this time (5) GI bleed: Code(s): K92.2 - Gastrointestinal hemorrhage, unspecified Status: Acute Assessment and Plan: Gastroenterology consulted complicated by previous anticaogulation and new finding of liver cirrhosis PRBC transfusion per protocol follow H/H (6) Metabolic acidosis: Code(s): E87.2 - Acidosis Status: Acute Assessment and Plan: as noted on admission lactic acid noted due to metformin use along with MINAL(?) compensated with bicarb fluids follow trend (7) Cirrhosis: Code(s): K74.60 - Unspecified cirrhosis of liver Status: Acute Assessment and Plan: as noted by admission imaging hepatitis studies reviewed Gastroenterology to follow History of Present Illness Reason for Consult Consult date: 09/27/20 Reason for consult: acute renal failure (on chronic kidney disease) Chief Complaint Chief complaint: Weakness, hypotension, GI bleed, anemia History of Present Illness Narrative: The patient is a 85-year-old male with a past medial history as outlined below who presented to the [facility] ER via EMS from home with complaints of weakness and lethargy along with possible seizure activity. Most of the information I have obtained is from review of the electronic medical record and discussion with the medical personnel involved in his care as the patient is unable to give me specific details of the events that led to his presentation and admission to the hospital. Apparently, over last few weeks, the patient has had frequent falls. Apparently, he states that he has felt that his weakness and overt dizziness has led to these falls and despite all conservative therapy feels that he just does not have enough energy. He apparently noted that his stools had been somewhat black and tarry and went to see his PCP for this. Associated symptoms including some mild epigastric discomfort and labs were apparently done and he was empirically started on a proton pump inhibitor but I am unclear if any other further intervention was done. His weakness continued to progressively get worse and silly noted to some symptoms of shortness of breath. Apparently, on the day of admission, when he woke up and ate some breakfast, he went to his recliner and fell asleep but is does daughter noted that he seemed to be a bit confused when he was trying to sleep and apparently noted his eyes rolling back in his head with clenched fist. Her BP is fair was that he had a seizure and so she called 911 and he
[2020-09-27 11:59] LABS: Hematocrit 29.6 % (42.0-52.0); Hemoglobin 9.4 g/dL (14.0-18.0)
[2020-09-27 12:54] LABS: Glucose Point of Care 168 (65-105)
--- NOTE | 2020-09-27 13:48 | P.PNIM_ITS ---
Progress Note: A&P Assessment and Plan (1) Shock: Code(s): R57.9 - Shock, unspecified Status: Acute Assessment and Plan: Hypovolemic versus septic shock. Cardiogenic shock is a consideration. EMR shows that he is typically bradycardic in the 50s. * Despite aggressive hydration in ED he remained hypotensive, now on norepinephrine and vasopressin. MAP goal of > 65. * Lactic acid continues to be elevated around 3.0. * No obvious source of underlying infection though urinalysis is still pending. * Broad-spectrum antibiotics including vancomycin and ceftriaxone. * Blood cultures have been obtained and are pending. 09/27/20 13:48 patient 85-year-old male with history coronary artery disease status post CABG, systolic congestive heart failure, hypertension hyperlipidemia, atrial fibrillation for which he is taking Eliquis patient was brought to emergency department with generalized weakness he was found to be hypotensive 67/40 and profile anemia with hemoglobin of 5.3 and history rectal bleeding, emergency department patient was started on IV fluid and he recent 3 units of pack RBC however his blood pressure not improving and now on Levophed and vasopressin, CT scan of the abdomen showed liver cirrhosis, hepatitis B and C are negative, patient is given Kcentra to reverse effect of Eliquis, patient is currently on BiPAP unable to provide any review of symptoms he daughter is present in the room, patient is seen senior applications developer and further recommendation to follow. (2) Pancytopenia: Code(s): D61.818 - Other pancytopenia Status: Acute Assessment and Plan: Due to GI loss (dark colored stool was Hemoccult positive in the ED). Cannot rule out bone marrow suppression or dyscrasia. * He is being transfused to a stable hemoglobin. * Platelets currently at 51,000. (3) Acute kidney injury: Code(s): N17.9 - Acute kidney failure, unspecified Status: Acute Assessment and Plan: Secondary to hypoperfusion due to hypovolemia and hypotension. Cannot rule out ATN from underlying sepsis versus other. * Alejandro catheter has been inserted. Oliguric with minimal output. * Hopefully urine output will corn picker with better perfusion. * Continue to monitor strict I/O. * Renal ultrasound in a.m. * Avoid nephrotoxic agents. (4) GI bleed: Code(s): K92.2 - Gastrointestinal hemorrhage, unspecified Status: Acute Assessment and Plan: Dark stool was Hemoccult positive in the emergency department. * He has been started on Protonix and octreotide drips. * Ceftriaxone added given underlying cirrhosis. * Transfuse to stable hemoglobin. * Dr. Villalba (Gastroenterology) consulted. (5) Congestive heart failure: Code(s): I50.9 - Heart failure, unspecified Status: Acute Assessment and Plan: Ejection fraction in February 2020 was about 35%. Clinically he is starting to look volume overloaded. * Unable to diurese given hypotension. * Patient has declined intubation for airway protection and family agrees with DNR status. * May consider BiPAP depending on his course. (6) Chronic anticoagulation: Code(s): Z79.01 - custodial (current) use of anticoagulants Status: Acute Assessment and Plan: No evidence of overt DIC at this time but he does have a coagulopathy with prolonged PT, PTT, and INR. * Eliquis and aspirin are on hold. * Patient to receive [facility] tonight. (7) Cirrhosis: Code(s): K74.60 - Unspecified cirrhosis of liver Status: Acute Assessment and Plan: Noted on CT today. Evide
--- NOTE | 2020-09-27 13:48 | PM.IMPN ---
Progress Note: A&P Assessment and Plan (1) Shock: Code(s): R57.9 - Shock, unspecified Status: Acute Assessment and Plan: Hypovolemic versus septic shock. Cardiogenic shock is a consideration. EMR shows that he is typically bradycardic in the 50s. Despite aggressive hydration in ED he remained hypotensive, now on norepinephrine and vasopressin. MAP goal of > 65. Lactic acid continues to be elevated around 3.0. No obvious source of underlying infection though urinalysis is still pending. Broad-spectrum antibiotics including vancomycin and ceftriaxone. Blood cultures have been obtained and are pending. 09/27/20 13:48 patient 85-year-old male with history coronary artery disease status post CABG, systolic congestive heart failure, hypertension hyperlipidemia, atrial fibrillation for which he is taking Eliquis patient was brought to emergency department with generalized weakness he was found to be hypotensive 67/40 and profile anemia with hemoglobin of 5.3 and history rectal bleeding, emergency department patient was started on IV fluid and he recent 3 units of pack RBC however his blood pressure not improving and now on Levophed and vasopressin, CT scan of the abdomen showed liver cirrhosis, hepatitis B and C are negative, patient is given Kcentra to reverse effect of Eliquis, patient is currently on BiPAP unable to provide any review of symptoms he daughter is present in the room, patient is seen clinical leader and further recommendation to follow. (2) Pancytopenia: Code(s): D61.818 - Other pancytopenia Status: Acute Assessment and Plan: Due to GI loss (dark colored stool was Hemoccult positive in the ED). Cannot rule out bone marrow suppression or dyscrasia. He is being transfused to a stable hemoglobin. Platelets currently at 51,000. (3) Acute kidney injury: Code(s): N17.9 - Acute kidney failure, unspecified Status: Acute Assessment and Plan: Secondary to hypoperfusion due to hypovolemia and hypotension. Cannot rule out ATN from underlying sepsis versus other. Alejandro catheter has been inserted. Oliguric with minimal output. Hopefully urine output will mushroom picker with better perfusion. Continue to monitor strict I/O. Renal ultrasound in a.m. Avoid nephrotoxic agents. (4) GI bleed: Code(s): K92.2 - Gastrointestinal hemorrhage, unspecified Status: Acute Assessment and Plan: Dark stool was Hemoccult positive in the emergency department. He has been started on Protonix and octreotide drips. Ceftriaxone added given underlying cirrhosis. Transfuse to stable hemoglobin. Dr. Villalba (Gastroenterology) consulted. (5) Congestive heart failure: Code(s): I50.9 - Heart failure, unspecified Status: Acute Assessment and Plan: Ejection fraction in February 2020 was about 35%. Clinically he is starting to look volume overloaded. Unable to diurese given hypotension. Patient has declined intubation for airway protection and family agrees with DNR status. May consider BiPAP depending on his course. (6) Chronic anticoagulation: Code(s): Z79.01 - superintendent marine oil terminal (current) use of anticoagulants Status: Acute Assessment and Plan: No evidence of overt DIC at this time but he does have a coagulopathy with prolonged PT, PTT, and INR. Eliquis and aspirin are on hold. Patient to receive Kcentra tonight. (7) Cirrhosis: Code(s): K74.60 - Unspecified cirrhosis of liver Status: Acute Assessment and Plan: Noted on CT today. Evidence of synthetic dysfunction with prolonged coags and hypoalbuminemia. Thrombocytopenia as above. (8) Pre-diabetes: Code(s): R73.03 - Prediabetes Status: Acute Assessment and Plan: Metformin on hold. Initiate sliding scale insulin, Accu-Cheks, and hypoglycemic protocol. Subjective Date/time seen: 09/27/20 13:48 patient 85-year-old male with history co
--- NOTE | 2020-09-27 17:29 | WPDGIPROGNO ---
Progress Note: A&P Additional Plan MARTIN Villalba hebert Johnston 27 September 2020 A. Acute blood loss anemia with melena/G+ on Eliquis and Advil in patient with cirrhosis with TCP and increased INR: - Concern for UGI>LGI source of bleed - On two max dose pressors - Hct is improved with transfusion - Unclear if active bleed - Follow H+H; transfuse prn - Correct INR - Avoid aspirin, NSAIDS and anticogulants if possible - EGD possibly tomorrow if we can get consent - IV PPI, Octreotide B. Cirrhosis with ascites: consider evaluation based on pt/family wishes. Family not sure if they want to be aggressive vs TRADE MARK EXAMINER. Long d/w patient and DA Lynn. Full consult dictated.#[id number] [facility] [phone] Subjective Date/time seen: 09/27/20 17:29 Objective Data Vital Signs Vital Signs: Vital Signs - 24 hr 09/26/20 17:31 09/26/20 17:36 09/26/20 17:43 Temperature Pulse Rate 50 L 50 L 50 L Respiratory Rate 19 9 L Blood Pressure 45/37 L 78/45 L 78/45 L Pulse Oximetry 100 09/26/20 17:45 09/26/20 17:46 09/26/20 17:48 Temperature Pulse Rate 50 L 50 L 50 L Respiratory Rate 13 14 12 Blood Pressure 76/55 L 81/44 L Pulse Oximetry 100 100 100 09/26/20 18:03 09/26/20 18:16 09/26/20 18:18 Temperature Pulse Rate 50 L 50 L 50 L Respiratory Rate 15 Blood Pressure 70/44 L 86/49 L 86/49 L Pulse Oximetry 100 09/26/20 18:36 09/26/20 19:13 09/26/20 19:22 Temperature 35.6 C L Pulse Rate 50 L 50 L 50 L Respiratory Rate 17 12 Blood Pressure 89/52 L 83/47 L 115/69 Pulse Oximetry 100 90 09/26/20 19:28 09/26/20 20:00 09/26/20 20:36 Temperature 34.4 C L 31.5 C L 31.4 C L Pulse Rate 50 L 50 L Respiratory Rate 17 17 Blood Pressure 114/92 H 96/62 L Pulse Oximetry 98 100 09/26/20 20:46 09/26/20 20:51 09/26/20 21:06 Temperature 31.2 C L 31.5 C L 31.6 C L Pulse Rate 50 L Respiratory Rate 17 Blood Pressure 96/62 L Pulse Oximetry 100 09/26/20 21:21 09/26/20 21:36 09/26/20 22:00 Temperature 31.8 C L 31.8 C L 31.8 C L Pulse Rate 50 L 50 L Respiratory Rate 16 Blood Pressure 82/51 L 148/86 H Pulse Oximetry 100 09/26/20 22:06 09/26/20 22:30 09/26/20 22:44 Temperature 31.8 C L 32.2 C L 32.2 C L Pulse Rate 50 L Respiratory Rate 16 Blood Pressure 96/66 L Pulse Oximetry 96 09/26/20 22:49 09/26/20 22:54 09/26/20 23:00 Temperature 32.2 C L 32.7 C L Pulse Rate 50 L 50 L Respiratory Rate 17 Blood Pressure 77/46 L 79/47 L Pulse Oximetry 100 09/26/20 23:09 09/26/20 23:30 09/26/20 23:48 Temperature 32.7 C L Pulse Rate 50 L 50 L Respiratory Rate Blood Pressure 77/46 L 85/66 L Pulse Oximetry 09/27/20 00:00 09/27/20 00:27 09/27/20 00:30 Temperature 33.3 C L 33.3 C L Pulse Rate 50 L 50 L 50 L Respiratory Rate 17 Blood Pressure 94/70 L 82/48 L 82/48 L Pulse Oximetry 100 09/27/20 01:00 09/27/20 01:17 09/27/20 01:30 Temperature 33.6 C L 33.8 C L Pulse Rate 50 L Respiratory Rate Blood Pressure 96/69 L Pulse Oximetry 09/27/20 02:00 09/27/20 02:13 09/27/20 02:30 Temperature 34.4 C L 34.9 C L Pulse Rate 50 L 50 L Respiratory Rate 16 Blood Pressure 100/81 95/44 L Pulse Oximetry 100 09/27/20 02:50 09/27/20 03:00 09/27/20 03:30 Temperature 35 C L 35 C L Pulse Rate 50 L Respiratory Rate Blood Pressure 70/33 L Pulse Oximetry 09/27/20 03:49 09/27/20 03:50 09/27/20 04:00 Temperature 35.3 C L Pulse Rate 54 L 51 L 50 L Respiratory Rate 21 H Blood Pressure 77/60 L 77/60 L 110/88 Pulse Oximetry 99 09/27/20 04:30 09/27/20 05:00 09/27/20 05:13 Temperature 35.3 C L 35.9 C L Pulse Rate 50 L Respiratory Rate Blood Pressure 134/97 H Pulse Oximetry 09/27/20 05:30 09/27/20 06:00 09/27/20 06:22 Temperature 36.1 C L 36.4 C 36.4 C L Pulse Rate 53 L 52 L Respiratory Rate 23 H 20 Blood Pressure 93/59 L 100/72 Pulse Oximetry 95 99 09/27/20 06:29 09/27/20 06:30 09/27/20 06:38 [facility]
[2020-09-27 18:20] LABS: Glucose Point of Care 180 (65-105)
--- NOTE | 2020-09-27 22:00 | CONS_ITS ---
DATE OF CONSULTATION: 09/27/2020 HISTORY OF PRESENT ILLNESS: An 85-year-old male with history of coronary artery disease status post stent and CABG, CHF, ATN, hyperlipidemia, prediabetes, chronic blood loss anemia, who presented with weakness, lethargy, and falls. By report, he has been having melena, epigastric discomfort, shortness of breath and decreased level of consciousness. He was transported to the hospital by EMS, noted to have hypotension. He has been transfused and gotten fluids. He is also on max dose pressor x2. He was on 3 pressors, but Nor-Epi has been discontinued. I am now asked to provide GI evaluation at the request of the hospitalist service for possible GI bleed. Patient's primary care provider is Dr. Flip Garcia. Patient's primary geophysicist is Dr. Cash Johnston. REVIEW OF SYSTEMS: The patient has easy bruising related to blood thinners. He otherwise denies nausea, vomiting, heartburn, trouble swallowing, loss of appetite or weight, diarrhea, constipation, hematochezia, fever, jaundice, scleral icterus, dark urine, light stools, itching, hot or cold intolerance, chest pain, hematuria, dysuria, new cough or visual changes, tingling of skin, bone pain or tremors. He does have belly pain. Please note that the patient's daughter is at bedside for the entire visit. No endocarditis risk factors. MEDICAL PROBLEMS: GERD, cataract extraction, right upper extremity clot with thrombectomy in the past. ALLERGIES: SEE LIST. MEDICATIONS: See list, but includes Advil every other day and Eliquis. SOCIAL HISTORY: Nonsmoker. Rare alcohol. FAMILY HISTORY: Negative for GI malignancy. Last colonoscopy was at least [address] Johnston, reportedly benign. PHYSICAL EXAMINATION: GENERAL: Elderly male, lying in bed, no apparent discomfort. He has 3 to 4+ lower extremity edema. No jaundice, spider angioma, palmar erythema. HEENT: Skull is normocephalic, atraumatic. Pupils nonicteric. Oropharynx clear. NECK: Supple without thyromegaly. LUNGS: Bibasilar crackles. HEART: Tachy. ABDOMEN: Normoactive bowel sounds. Soft, nontender, nonrigid, nondistended without hepatosplenomegaly or masses. RECTAL: Deferred. NEURO: Conscious and alert. LABORATORY DATA: On admission, hemoglobin 5, hematocrit 18, white count of 4, platelets 51,000, MCV 93. INR is 3, creatinine 2.9, BUN is 133, lactic acid was 3.6, T-bili 0.6, alkaline phosphatase 39, AST 22, ALT is 17. CT scan of the abdomen and pelvis shows umbilical hernia, bilateral inguinal hernias, cirrhosis of the liver with small ascites. On September 27, hematocrit was initially 24, now with up to 30. INR is 1.9. Lactic acid 2.5. LFTs are normal. Free T4 is 1.1. Hepatitis B surface antibody and hepatitis C are negative. On February 21, 2020, hematocrit is 35. ASSESSMENT AND PLAN: 1. Acute blood loss anemia with melena, heme-positive stool in patient who is on Eliquis and Advil. He also has cirrhosis with thrombocytopenia and increased INR. The patient also has significant renal insufficiency which may be contributing to anemia and platelet dysfunction. Consider DDAVP. 2. Increased INR in patient on Eliquis suggests underlying clotting disorder which may not be limited to cirrhosis. Thrombocytopenia likely due to splenic sequestration from cirrhosis. Certainly concern for upper GI more than lower GI source of bleeding. He is on two max dose pressors. Hematocrit is improved with transfusion and it is not clear if he is actively bleeding because nurse says the patient continues to have melena which may just be passing old blood. Would follow H and H and transfuse as needed. Correct INR. Avoid aspirin, nonsteroidals, and anticoagulants if possible. Continue IV PPI a
[2020-09-28] VITALS (45 sets, daily range): BP systolic 83–133; BP diastolic 44–98; PULSE 49–58; RESP 15–26; TEMP 35.4–36.1; O2SAT 89–100
[2020-09-28 00:37] LABS: Glucose Point of Care 194 (65-105)
[2020-09-28 04:51] LABS: Alveolar/Arterial O2 Gradient 49.1 mmHg; Base Excess ABG -5.5 mEq/l (+/-2.0); Carboxyhemoglobin 0.3 % THb (0-2.0); Fractional Inspired Oxygen 32 %; HCO3 ABG 21.5 mEq/l (22.0-26.0); Methemoglobin ABG 0.3 %THb (0-1.5); Oxygen Content ABG 14.8 %vol (16.0-22.0); Oxygen Saturation ABG 97.9 % (95.0-100.0); Oxyhemoglobin 96.7 % THb (90.0-100.0); PCO2 ABG 48.8 mmHg (35.0-45.0); PO2 FiO2 Ratio Arterial Blood 3.81 %; Reduced Hemoglobin 2.7 %THb (0-5.0); Total Hemoglobin 10.7 g/dL (12.0-18.0)
[2020-09-28 04:53] LABS: Device NASAL CANNULA; Modified Allen's Test Pass; Site Drawn RIGHT RADIAL; pH ABG 7.262 (7.350-7.450)
[2020-09-28] MEDS: NOREPINEPHRINE 8 MG/D5W 250 ML 8 MG/250 ML BAG 56.25 MG IV CONT (05:21)
[2020-09-28 05:27] LABS: Hematocrit 29.2 % (42.0-52.0); Hemoglobin 9.2 g/dL (14.0-18.0); Mean Corpuscular HGB Conc 31.5 g/dl (32-36); Mean Corpuscular Hemoglobin 28.5 pg (26-34); Mean Corpuscular Volume 90.4 fl (80-100); Mean Platelet Volume 12.1 fl (7.4-10.4); Platelet Count Result 123 k/mm3 (150-375); Red Blood Count 3.23 M/mm3 (4.6-6.20); Red Cell Distribution Width 16.6 % (11.5-14.5); White Blood Count 11.5 K/mm3 (4.5-10.0)
[2020-09-28 05:35] LABS: Lactic Acid Reflex 1.3 mmol/L (0.7-2.1)
[2020-09-28 06:30] LABS: Alanine Aminotransferase 70 U/L (4-50); Albumin Level 3.1 g/dL (3.5-5.1); Alkaline Phosphatase 45 U/L (38-126); Anion Gap 7 mmol/L (8-16); Aspartate Amino Transferase 99 U/L (17-59); Bilirubin,Total 0.7 mg/dL (0.2-1.3); Blood Urea Nitrogen 128 mg/dL (9-20); Calcium 7.5 mg/dL (8.4-10.2); Carbon Dioxide 25 mmol/L (22-30); Chloride 101 mmol/L (98-107); Estimated CRCL calculation 21 ml/min; Estimated Glomerular Filt Rate 20; Glucose 206 mg/dL (75-110); Phosphorus 6.2 mg/dL (2.5-4.5); Potassium 5.8 mmol/L (3.4-5.0); Sodium 133 mmol/L (137-145)
[2020-09-28] MEDS: SODIUM POLYSTYRENE SULFONONATE 15 GM/60 ML BTL 30 GM PO (08:50)
[2020-09-28] MEDS: NOREPINEPHRINE 8 MG/D5W 250 ML 8 MG/250 ML BAG 43.13 MG IV CONT (10:40)
--- NOTE | 2020-09-28 10:41 | PM.IMPN ---
Progress Note: A&P Assessment and Plan (1) Shock: Code(s): R57.9 - Shock, unspecified Status: Acute Assessment and Plan: Hypovolemic versus septic shock. Cardiogenic shock is a consideration. EMR shows that he is typically bradycardic in the 50s. Despite aggressive hydration in ED he remained hypotensive, now on norepinephrine and vasopressin. MAP goal of > 65. Lactic acid continues to be elevated around 3.0. No obvious source of underlying infection though urinalysis is still pending. Broad-spectrum antibiotics including vancomycin and ceftriaxone. Blood cultures have been obtained and are pending. 09/28/20 10:41 patient 85-year-old male with history coronary artery disease status post CABG, systolic congestive heart failure, hypertension hyperlipidemia, atrial fibrillation for which he is taking Eliquis patient was brought to emergency department with generalized weakness he was found to be hypotensive 67/40 and profile anemia with hemoglobin of 5.3 and history rectal bleeding, emergency department patient was started on IV fluid and he recent 3 units of pack RBC however his blood pressure not improving and now on Levophed and vasopressin, CT scan of the abdomen showed liver cirrhosis, hepatitis B and C are negative, patient is given Kcentra to reverse effect of Eliquis, patient is currently on BiPAP unable to provide any review of symptoms he daughter is present in the room, patient is seen book sewing machine operator and further recommendation to follow. 09/28 today patient is off BiPAP on nasal cannula however his too weak to provide any review of symptom, he is on vesopressin and Levophed his blood pressure is improving, after receiving transfusion patient hemoglobin is stable, patient Eliquis and aspirin on hold and Eliquis was reversed, patient is seen by GI recommending EGD and colonoscopy to further evaluate source of bleeding pending consent from the family, patient with liver cirrhosis however hepatitis-B and C are negative, family is contemplating comfort care will continue to monitor and further recommendation to follow. (2) Pancytopenia: Code(s): D61.818 - Other pancytopenia Status: Acute Assessment and Plan: Due to GI loss (dark colored stool was Hemoccult positive in the ED). Cannot rule out bone marrow suppression or dyscrasia. He is being transfused to a stable hemoglobin. Platelets currently at 51,000. (3) Acute kidney injury: Code(s): N17.9 - Acute kidney failure, unspecified Status: Acute Assessment and Plan: Secondary to hypoperfusion due to hypovolemia and hypotension. Cannot rule out ATN from underlying sepsis versus other. Alejandro catheter has been inserted. Oliguric with minimal output. Hopefully urine output will pickling drum operator with better perfusion. Continue to monitor strict I/O. Renal ultrasound in a.m. Avoid nephrotoxic agents. (4) GI bleed: Code(s): K92.2 - Gastrointestinal hemorrhage, unspecified Status: Acute Assessment and Plan: Dark stool was Hemoccult positive in the emergency department. He has been started on Protonix and octreotide drips. Ceftriaxone added given underlying cirrhosis. Transfuse to stable hemoglobin. Dr. Villalba (Gastroenterology) consulted. (5) Congestive heart failure: Code(s): I50.9 - Heart failure, unspecified Status: Acute Assessment and Plan: Ejection fraction in February 2020 was about 35%. Clinically he is starting to look volume overloaded. Unable to diurese given hypotension. Patient has declined intubation for airway protection and family agrees with DNR status. May consider BiPAP depending on his course. (6) Chronic anticoagulation: Code(s): Z79.01 - assisted (current) use of anticoagulants Status: Acute Assessment and Plan: No evidence of overt DIC at this time but he does have a coagulopathy with prolonged PT, PTT, and INR. Eliquis and aspirin
--- NOTE | 2020-09-28 11:26 | WPDINTPN ---
Progress Note: A&P Assessment and Plan (1) Shock: Code(s): R57.9 - Shock, unspecified Status: Acute Assessment and Plan: Hypovolemic versus septic Continue Levophed and vasopressin. Wean pressors if tolerated. He has been weaned off from Odilon-Synephrine. Continue to monitor hemodynamics closely. Lactate is within normal range. He is mentating well though he is minimally confused. Urine output is improving. On start him on stress dose steroids. (2) GI bleed: Code(s): K92.2 - Gastrointestinal hemorrhage, unspecified Status: Acute Assessment and Plan: Gastroenterology service has been consulted. Will continue to keep him NPO. Continue PPI and octreotide drip at this time. May potentially stop octreotide in the a.m. if EGD is not planned or if not feasible. Mass which PPI to twice a day from the drip. He may need upper GI endoscopy though he seems very unstable with requirement of higher amount of pressors. Family is indecisive about their consent for invasive procedure like upper GI endoscopy. He has received Kcentra at the time of presentation. Continue to hold Eliquis. Continue to monitor H&H. PRBC transfusion if indicated. (3) Cirrhosis: Code(s): K74.60 - Unspecified cirrhosis of liver Status: Acute Assessment and Plan: Abdominal imaging showed cirrhosis with elevated INR and low platelet count on blood test. He does not have any known history of hepatitis B and C. will check hepatitis-B and C status. Gastroenterology service recommendations appreciated. EGD was considered but would has not been performed yet. Family is indecisive about their consent. He is on empiric antibiotic which should cover SBP. He has minimal ascites. He is currently on PPI and Octrotide drip. If EGD is not planned then may potentially stop Dr. tried drips tomorrow after 48 hours and switch PPI drip to IV twice a day. H&H seems to be stable. No further outgoing bleeding has been reported. 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 He was given Kcentra at the time of presentation. (5) Acute kidney injury: Code(s): N17.9 - Acute kidney failure, unspecified Status: Acute Assessment and Plan: Nephrology service recommendations appreciated. Continue to monitor intake output record. Continue to monitor renal parameters and electrolytes. Kayexalate today for hyperkalemia. Still acidotic but seems to be getting better. Will hold off bicarb drip because of concern for fluid overload. Renal parameters stable with creatinine of 3. (6) Anemia: Qualifiers: Anemia type: unspecified type Qualified Code(s): D64.9 - Anemia, unspecified Code(s): D64.9 - Anemia, unspecified Status: Acute Assessment and Plan: Likely secondary to acute on chronic blood loss from GI tract. Continue to monitor H&H. PRBC transfusion if indicated. (7) CAD (coronary artery disease): Code(s): I25.10 - Atherosclerotic heart disease of [place] coronary artery without angina pectoris Status: Acute Assessment and Plan: Continue to monitor. Echo is pending. Hold Eliquis, carvedilol, metolazone and Entresto. (8) Pleural effusion: Code(s): J90 - Pleural effusion, not elsewhere classified Status: Acute Assessment and Plan: May need pulmonary consult and thoracentesis specially on the right side both diagnostic and therapeutic purposes. Repeat chest x-ray still showing right-sided pleural effusion with layering. He is requiring 3 L of oxygen and does not seem to be in respiratory distress. Will hold off thoracentesis at this time. (9) Metabolic acidosis: Code(s): E87.2 - Acidosis Status: Acute Assessment and Plan:
[2020-09-28] MEDS: HYDROCORTISONE SODIUM SUCCINATE 100 MG/2 ML VIAL 50 MG IV PUSH ×2 (11:39→17:52)
[2020-09-28 11:52] LABS: Glucose Point of Care 197 (65-105)
--- NOTE | 2020-09-28 13:18 | PM.PNNEP ---
Progress Note: A&P Assessment and Plan (1) Acute kidney injury: Code(s): N17.9 - Acute kidney failure, unspecified Status: Acute Assessment and Plan: due to ATN from: - hemodynamic instability/shock - pre-renal factors - concurrent use of ARB and diuretics prior to admission - severe anemia oliguric if no anuric on admission but better UOP in the last 8 hours no critical electrolytes (aside from rising K+) but he has a metabolic acidosis medical management for K+ and acidosis he remains at high risk for the the need for renal replacement therapy/dialysis although his shock may make this difficult to perform follow trend of repeat labs/electrolytes and urine output for now (2) Stage 3a chronic kidney disease: Code(s): N18.31 - Chronic kidney disease, stage 3a Status: Chronic Assessment and Plan: baseline creatinine ~ 0.9 - 1.2mg/dl likely due to hypertension, diabetes, vascular disease, and age-related change (3) Shock: Code(s): R57.9 - Shock, unspecified Status: Acute Assessment and Plan: septic versus hypovolemic or combination of both?? follow cultures and on empiric antibiotics continue vasopressor therapy to maintain MAP - wean as tolerated follow hemodynamics (4) Acute respiratory failure: Code(s): J96.00 - Acute respiratory failure, unspecified whether with hypoxia or hypercapnia Status: Acute Assessment and Plan: on BiPAP PRN DNR/DNI at this time (5) GI bleed: Code(s): K92.2 - Gastrointestinal hemorrhage, unspecified Status: Acute Assessment and Plan: Gastroenterology recommendations noted complicated by previous anticoagulation and new finding of liver cirrhosis PRBC transfusion per protocol follow H/H (6) Metabolic acidosis: Code(s): E87.2 - Acidosis Status: Acute Assessment and Plan: as noted on admission lactic acid noted due to metformin use along with MINAL(?) compensating with medical management follow trend (7) Cirrhosis: Code(s): K74.60 - Unspecified cirrhosis of liver Status: Acute Assessment and Plan: as noted by admission imaging hepatitis studies reviewed Gastroenterology folloiwing Will continue to follow. Subjective Date/time seen: 09/28/20 13:18 Pressor requirements less today in comparison to yesterday; has been using BiPAP therapy and tolerating reasonably well; elevated K+ noted by AM labs and treated with kayexalate; mentation seems to be doing better as well; on nasal cannula at the time of my visit. Exam Narrative: Exam Narrative: General: Elderly male in NAD Heart: normal S1 and S2; no rub Lungs: coarse and decreased at bases Abdomen: soft, nontender, nondistended, positive bowel sounds Extremities: no cyanosis or clubbing; trace edema Skin: warm and dry Objective Data Vital Signs Vital Signs: Vital Signs Temp Pulse Resp BP Pulse Ox 09/28/20 14:00 51 L 09/28/20 13:00 108/68 09/28/20 12:45 118/80 09/28/20 12:30 133/71 09/28/20 12:15 114/77 09/28/20 12:01 35.8 C L 55 L 22 H 110/98 H 89 L 09/28/20 12:00 58 L 110/98 H 09/28/20 11:55 93 09/28/20 11:30 114/83 09/28/20 11:15 109/91 H 09/28/20 11:06 118/56 L 09/28/20 10:40 126/61 09/28/20 10:00 35.7 C L 50 L 19 106/58 L 98 09/28/20 09:50 93 09/28/20 09:45 125/54 L 09/28/20 09:30 126/55 L 09/28/20 09:15 118/60 09/28/20 09:00 111/81 09/28/20 08:30 129/79 09/28/20 08:00 35.8 C L 55 L 16 94/69 L 100 09/28/20 07:30 88/68 L 09/28/20 06:00 51 L 20 119/73 97 09/28/20 05:21 50 L 09/28/20 04:00 36.1 C L 54 L 18 91/68 L 95 09/28/20 03:56 96 09/28/20 02:00 50 L 16 119/57 L 95 09/28/20 00:54 50 L 09/28/20 00:00 53 L
--- NOTE | 2020-09-28 13:18 | P.PNNP_ITS ---
Progress Note: A&P Assessment and Plan (1) Acute kidney injury: Code(s): N17.9 - Acute kidney failure, unspecified Status: Acute Assessment and Plan: * due to ATN from: - hemodynamic instability/shock - pre-renal factors - concurrent use of ARB and diuretics prior to admission - severe anemia * oliguric if no anuric on admission but better UOP in the last 8 hours * no critical electrolytes (aside from rising K+) but he has a metabolic acidosis * medical management for K+ and acidosis * he remains at high risk for the the need for renal replacement t herapy/dialysis although his shock may make this difficult to perform * follow trend of repeat labs/electrolytes and urine output for now (2) Stage 3a chronic kidney disease: Code(s): N18.31 - Chronic kidney disease, stage 3a Status: Chronic Assessment and Plan: * baseline creatinine ~ 0.9 - 1.2mg/dl * likely due to hypertension, diabetes, vascular disease, and age-related change (3) Shock: Code(s): R57.9 - Shock, unspecified Status: Acute Assessment and Plan: * septic versus hypovolemic or combination of both?? * follow cultures and on empiric antibiotics * continue vasopressor therapy to maintain MAP - wean as tolerated * follow hemodynamics (4) Acute respiratory failure: Code(s): J96.00 - Acute respiratory failure, unspecified whether with hypoxia or hypercapnia Status: Acute Assessment and Plan: * on BiPAP PRN * DNR/DNI at this time (5) GI bleed: Code(s): K92.2 - Gastrointestinal hemorrhage, unspecified Status: Acute Assessment and Plan: * Gastroenterology recommendations noted * complicated by previous anticoagulation and new finding of liver cirrhosis * PRBC transfusion per protocol * follow H/H (6) Metabolic acidosis: Code(s): E87.2 - Acidosis Status: Acute Assessment and Plan: * as noted on admission * lactic acid noted * due to metformin use along with MINAL(?) * compensating with medical management * follow trend (7) Cirrhosis: Code(s): K74.60 - Unspecified cirrhosis of liver Status: Acute Assessment and Plan: * as noted by admission imaging * hepatitis studies reviewed * Gastroenterology folloiwing Will continue to follow. Subjective Date/time seen: 09/28/20 13:18 Pressor requirements less today in comparison to yesterday; has been using BiPAP therapy and tolerating reasonably well; elevated K+ noted by AM labs and treated with kayexalate; mentation seems to be doing better as well; on nasal cannula at the time of my visit. Exam Narrative: Exam Narrative: General: Elderly male in NAD Heart: normal S1 and S2; no rub Lungs: coarse and decreased at bases Abdomen: soft, nontender, nondistended, positive bowel sounds Extremities: no cyanosis or clubbing; trace edema Skin: warm and dry Objective Data Vital Signs Vital Signs: Vital Signs Temp Pulse Resp BP Pulse Ox 09/28/20 14:00 51 L 09/28/20 13:00 108/68 09/28/20 12:45 118/80 09/28/20 12:30 133/71 09/28/20 12:15 114/77 09/28/20 12:01 35.8 C L 55 L 22 H 110/98 H 89 L 09/28/20 12:00 58 L 110/98 H 09/28/20 11:55 93 09/28/20 11:30 114/83 09/28/20 11:15 109/91 H
--- NOTE | 2020-09-28 16:02 | WPDGIPROGNO ---
Progress Note: A&P Additional Plan GI Deejay 28 Sep 2020 No AP, N, V, BRBPR, melena VSS on pressors x 2. Soft/NT Hct 29 ASSESSMENT AND PLAN: A. 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 Cirrhosis: consider evaluation based on patient and family wishes. C. Gastroesophageal reflux disease: continue PPI. No further recommendations at this time. Please call if family desires further GI evaluation. MAITE DOS SANTOS M.D. [phone] Subjective Date/time seen: 09/28/20 16:02 Objective Data Vital Signs Vital Signs: Vital Signs - 24 hr 09/27/20 16:32 09/27/20 17:11 09/27/20 18:00 Temperature 36.5 C 36.5 C Pulse Rate 52 L 53 L Respiratory Rate 20 14 Blood Pressure 130/64 83/69 L Pulse Oximetry 95 100 97 09/27/20 20:00 09/27/20 20:18 09/27/20 20:20 Temperature 36.4 C Pulse Rate 54 L 60 Respiratory Rate 24 H Blood Pressure 120/57 L 109/96 H Pulse Oximetry 90 96 09/27/20 20:27 09/27/20 22:00 09/27/20 23:25 Temperature Pulse Rate 60 56 L 53 L Respiratory Rate 16 25 H Blood Pressure 109/96 H 106/55 L Pulse Oximetry 97 93 09/27/20 23:52 09/27/20 23:53 09/28/20 00:00 Temperature 36.3 C L Pulse Rate 55 L 53 L Respiratory Rate 21 H Blood Pressure 134/51 L Pulse Oximetry 95 95 09/28/20 00:54 09/28/20 02:00 09/28/20 03:56 Temperature Pulse Rate 50 L 50 L Respiratory Rate 16 Blood Pressure 119/57 L Pulse Oximetry 95 96 09/28/20 04:00 09/28/20 05:21 09/28/20 06:00 Temperature 36.1 C L Pulse Rate 54 L 50 L 51 L Respiratory Rate 18 20 Blood Pressure 91/68 L 119/73 Pulse Oximetry 95 97 09/28/20 07:30 09/28/20 08:00 09/28/20 08:30 Temperature 35.8 C L Pulse Rate 55 L Respiratory Rate 16 Blood Pressure 88/68 L 94/69 L 129/79 Pulse Oximetry 100 09/28/20 09:00 09/28/20 09:15 09/28/20 09:30 Temperature Pulse Rate Respiratory Rate Blood Pressure 111/81 118/60 126/55 L Pulse Oximetry 09/28/20 09:45 09/28/20 09:50 09/28/20 10:00 Temperature 35.7 C L Pulse Rate 50 L Respiratory Rate 19 Blood Pressure 125/54 L 106/58 L Pulse Oximetry 93 98 09/28/20 10:40 09/28/20 11:06 09/28/20 11:15 Temperature Pulse Rate Respiratory Rate Blood Pressure 126/61 118/56 L 109/91 H Pulse Oximetry 09/28/20 11:30 09/28/20 11:55 09/28/20 12:00 Temperature Pulse Rate 58 L Respiratory Rate Blood Pressure 114/83 110/98 H Pulse Oximetry 93 09/28/20 12:01 09/28/20 12:15 09/28/20 12:30 Temperature 35.8 C L Pulse Rate 55 L Respiratory Rate 22 H Blood Pressure 110/98 H 114/77 133/71 Pulse Oximetry 89 L 09/28/20 12:45 09/28/20 13:00 09/28/20 14:00 Temperature Pulse Rate 51 L Respiratory Rate Blood Pressure 118/80 108/68 Pulse Oximetry 09/28/20 14:15 09/28/20 14:16 09/28/20 14:33 Temperature 36.0 C L Pulse Rate 52 L Respiratory Rate 20 Blood Pressure 121/60 121/60 111/68 Pulse Oximetry 98 09/28/20 15:00 09/28/20 15:15 09/28/20 15:31 Temperature Pulse Rate Respiratory Rate Blood Pressure 108/74 125/50 L 120/58 L Pulse Oximetry Intake/Output Intake/Out
[2020-09-28 17:44] LABS: Anion Gap 9 mmol/L (8-16); Calcium 7.8 mg/dL (8.4-10.2); Carbon Dioxide 23 mmol/L (22-30); Chloride 101 mmol/L (98-107); Estimated CRCL calculation 23 ml/min; Estimated Glomerular Filt Rate 23; Glucose 178 mg/dL (75-110); Potassium 5.1 mmol/L (3.4-5.0); Sodium 133 mmol/L (137-145)
[2020-09-28 17:58] LABS: Glucose Point of Care 163 (65-105)
[2020-09-28 17:59] LABS: Blood Urea Nitrogen 129 mg/dL (9-20)
[2020-09-28] MEDS: FUROSEMIDE INJ 100 MG/10 ML VIAL 80 MG IV PUSH (21:20)
[2020-09-28] MEDS: NOREPINEPHRINE 8 MG/D5W 250 ML 8 MG/250 ML BAG 18.75 MG IV CONT (21:25)
[2020-09-28] MEDS: PANTOPRAZOLE SODIUM IV 40 MG VIAL IV PUSH (21:26)
[2020-09-28] MEDS: CENTRAL LINE FLUSH 10 ML IV PUSH (21:27)
[2020-09-29] VITALS (28 sets, daily range): BP systolic 64–138; BP diastolic 33–106; PULSE 51–69; RESP 12–23; TEMP 35.7–36.9; O2SAT 94–100
[2020-09-29] MEDS: HYDROCORTISONE SODIUM SUCCINATE 100 MG/2 ML VIAL 50 MG IV PUSH ×5 (00:07→23:40)
[2020-09-29 00:13] LABS: Glucose Point of Care 155 (65-105)
[2020-09-29 05:09] LABS: Alveolar/Arterial O2 Gradient 21.9 mmHg; Base Excess ABG -0.2 mEq/l (+/-2.0); Carboxyhemoglobin 0.3 % THb (0-2.0); Fractional Inspired Oxygen 28 %; HCO3 ABG 26.8 mEq/l (22.0-26.0); Methemoglobin ABG 0.3 %THb (0-1.5); Oxygen Content ABG 13.1 %vol (16.0-22.0); Oxygen Saturation ABG 97.5 % (95.0-100.0); Oxyhemoglobin 96.6 % THb (90.0-100.0); PCO2 ABG 56.2 mmHg (35.0-45.0); PO2 ABG 111.4 mmHg (80.0-100.0); PO2 FiO2 Ratio Arterial Blood 3.98 %; Reduced Hemoglobin 2.8 %THb (0-5.0); Total Hemoglobin 9.5 g/dL (12.0-18.0)
[2020-09-29 05:10] LABS: Device NASAL CANNULA; Site Drawn LEFT BRACHIAL
[2020-09-29 05:11] LABS: pH ABG 7.296 (7.350-7.450)
[2020-09-29 05:20] LABS: Potassium 4.4 mmol/L (3.4-5.0)
[2020-09-29 05:21] LABS: Hematocrit 26.6 % (42.0-52.0); Hemoglobin 8.4 g/dL (14.0-18.0); INR 1.3; Mean Corpuscular HGB Conc 31.6 g/dl (32-36); Mean Corpuscular Hemoglobin 28.5 pg (26-34); Mean Corpuscular Volume 90.2 fl (80-100); Mean Platelet Volume 11.7 fl (7.4-10.4); Platelet Count Result 113 k/mm3 (150-375); Prothrombin Time 17.2 Seconds (11.1-14.7); Red Blood Count 2.95 M/mm3 (4.6-6.20); White Blood Count 12.9 K/mm3 (4.5-10.0)
[2020-09-29 05:33] LABS: Alanine Aminotransferase 91 U/L (4-50); Albumin Level 3.1 g/dL (3.5-5.1); Alkaline Phosphatase 47 U/L (38-126); Anion Gap 6 mmol/L (8-16); Aspartate Amino Transferase 96 U/L (17-59); Bilirubin,Total 0.8 mg/dL (0.2-1.3); Calcium 7.8 mg/dL (8.4-10.2); Carbon Dioxide 28 mmol/L (22-30); Chloride 100 mmol/L (98-107); Estimated CRCL calculation 23 ml/min; Estimated Glomerular Filt Rate 23; Glucose 150 mg/dL (75-110); Phosphorus 5.5 mg/dL (2.5-4.5); Sodium 134 mmol/L (137-145)
[2020-09-29] MEDS: CENTRAL LINE FLUSH 10 ML IV PUSH ×3 (05:35→22:59)
[2020-09-29 06:19] LABS: Blood Urea Nitrogen 125 mg/dL (9-20)
[2020-09-29] MEDS: PANTOPRAZOLE SODIUM IV 40 MG VIAL IV PUSH ×2 (08:46→20:32)
[2020-09-29] MEDS: NOREPINEPHRINE 8 MG/D5W 250 ML 8 MG/250 ML BAG 22.5 MG IV CONT ×2 (08:49→18:36)
--- NOTE | 2020-09-29 09:02 | WPDINTPN ---
Progress Note: A&P Assessment and Plan (1) Shock: Code(s): R57.9 - Shock, unspecified Status: Acute Assessment and Plan: Hypovolemic versus septic Continue Levophed. Wean pressors if tolerated. He has been weaned off from Odilon-Synephrine and vasopressin. Continue to monitor hemodynamics closely. Lactate is within normal range. He is mentating well though he is minimally confused. Urine output is improving. Start weaning stress dose steroid once his hemodynamics improved. (2) GI bleed: Code(s): K92.2 - Gastrointestinal hemorrhage, unspecified Status: Acute Assessment and Plan: Gastroenterology service has been consulted. Continue to keep him NPO. PPI has been switched to b.i.d. dosing. Continue octreotide for now but consider to stop it sometime later today as he will complete 48 hour. He may need upper GI endoscopy though he seems to have unstable hemodynamics. Family is indecisive about their consent for invasive procedure like upper GI endoscopy. He has received Kcentra at the time of presentation. Continue to hold Eliquis. INR is within acceptable range now. Continue to monitor H&H. PRBC transfusion if indicated. (3) Cirrhosis: Code(s): K74.60 - Unspecified cirrhosis of liver Status: Acute Assessment and Plan: Abdominal imaging showed cirrhosis with elevated INR and low platelet count. He does not have any known history of hepatitis B and C. Hepatitis-B and C is negative during this admission. Gastroenterology service recommendations appreciated. EGD was considered but has not been performed yet because of unstable hemodynamics and family reluctance for him to undergo invasive procedure with unstable hemodynamics. He is on empiric antibiotic which should cover SBP. He has minimal ascites. Pantoprazole drip was switched to b.i.d. dosing of pantoprazole. Continue octreotide drip and consider stopping it is he has been on it for 48 hours. H&H seems to be stable. No further outgoing bleeding has been reported other than small bowel movements with melanotic stool. No hematemesis or hematochezia noted. 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 He was given Kcentra at the time of presentation. INR is stable. (5) Acute kidney injury: Code(s): N17.9 - Acute kidney failure, unspecified Status: Acute Assessment and Plan: Nephrology service recommendations appreciated. Continue to monitor intake output record. Continue to monitor renal parameters and electrolytes. Renal parameters stable with creatinine of 2.7. Seems to have good urine output with Lasix. Lasix dose will be repeated today. (6) Anemia: Qualifiers: Anemia type: unspecified type Qualified Code(s): D64.9 - Anemia, unspecified Code(s): D64.9 - Anemia, unspecified Status: Acute Assessment and Plan: Likely secondary to acute on chronic blood loss from GI tract. Continue to monitor H&H. PRBC transfusion if indicated. (7) CAD (coronary artery disease): Code(s): I25.10 - Atherosclerotic heart disease of [place] coronary artery without angina pectoris Status: Acute Assessment and Plan: Continue to monitor. Echo is pending. Hold Eliquis, carvedilol, metolazone and Entresto. (8) Pleural effusion: Code(s): J90 - Pleural effusion, not elsewhere classified Status: Acute Assessment and Plan: May need pulmonary consult and thoracentesis specially on the right side both diagnostic and therapeutic purposes if his hemodynamics improved. He is requiring 2-3 L of oxygen and does not seem to be in respiratory distress though with mild tachypnea. I will talk to the family for need for a right-sided thoracentesis and if they agree then
[2020-09-29] MEDS: ALBUTEROL SULFATE NEB 2.5 MG/0.5 ML INH INHALATION ×3 (09:25→19:35)
[2020-09-29] MEDS: FUROSEMIDE INJ 40 MG/4 ML VIAL IV PUSH (09:31)
[2020-09-29] MEDS: HALOPERIDOL LACTATE 5 MG/ML VIAL 2.5 MG IM (09:47)
[2020-09-29] MEDS: ALBUMIN HUMAN 25% 25 GM/100 ML 200 ML IVPB (09:50)
--- NOTE | 2020-09-29 11:22 | P.PNNP_ITS ---
Progress Note: A&P Assessment and Plan (1) Acute kidney injury: Code(s): N17.9 - Acute kidney failure, unspecified Status: Acute Assessment and Plan: * due to ATN from: - hemodynamic instability/shock - pre-renal factors - concurrent use of ARB and diuretics prior to admission - severe anemia * urine output has picked up. He May 26 100cc yesterday. * Potassium is good today. * Acidosis is resolved. * he remains at high risk for the the need for renal replacement therapy/dialysis although his shock may make this difficult to perform . He is on 2 pressors. * Since urine output is up and creatinine seems to be coming down a little, we can Continue medical therapy. (2) Stage 3a chronic kidney disease: Code(s): N18.31 - Chronic kidney disease, stage 3a Status: Chronic Assessment and Plan: * baseline creatinine ~ 0.9 - 1.2mg/dl * likely due to hypertension, diabetes, vascular disease, and age-related change (3) Shock: Code(s): R57.9 - Shock, unspecified Status: Acute Assessment and Plan: * septic versus hypovolemic or combination of both?? * follow cultures and on empiric antibiotics * continue vasopressor therapy to maintain MAP - wean as tolerated * Blood pressure seems to be pretty stable but he is on two pressor agents. (4) Acute respiratory failure: Code(s): J96.00 - Acute respiratory failure, unspecified whether with hypoxia or hypercapnia Status: Acute Assessment and Plan: * on BiPAP PRN * DNR/DNI at this time * Discussed with Dr. Crow. (5) GI bleed: Code(s): K92.2 - Gastrointestinal hemorrhage, unspecified Status: Acute Assessment and Plan: * Gastroenterology recommendations noted * complicated by previous anticoagulation and new finding of liver cirrhosis * PRBC transfusion per protocol * follow H/H (6) Metabolic acidosis: Code(s): E87.2 - Acidosis Status: Acute Assessment and Plan: * as noted on admission * lactic acid noted * due to metformin use along with MINAL(?) * compensating with medical management * follow trend (7) Cirrhosis: Code(s): K74.60 - Unspecified cirrhosis of liver Status: Acute Assessment and Plan: * as noted by admission imaging * hepatitis studies reviewed * on octreotide And Norepinephrine. * Gastroenterology following Subjective Date/time seen: 09/29/20 11:22 Interval history: Patient opens his eyes when I call his name. He is on BiPAP now. He is a little restless. Review of Systems Review of Systems: ROS unobtainable: Yes unobtainable due to medical condition Exam Narrative: Exam Narrative: General: Elderly male On BiPAP mask. Heart: normal S1 and S2; no rub Lungs: coarse and decreased at bases Abdomen: soft, nontender, nondistended, positive bowel sounds Extremities: Trace edema Skin: no rash Objective Data Vital Signs Vital Signs: Vital Signs - 24 hr 09/28/20 11:30 09/28/20 11:55 09/28/20 12:00 Temperature Pulse Rate 58 L Respiratory Rate Blood Pressure 114/83 110/98 H Pulse Oximetry 93 09/28/20 12:01 09/28/20 12:15 09/28/20 12:30 Temperature 35.8 C L Pulse Rate 55 L Respiratory Rate 22
--- NOTE | 2020-09-29 11:22 | PM.PNNEP ---
Progress Note: A&P Assessment and Plan (1) Acute kidney injury: Code(s): N17.9 - Acute kidney failure, unspecified Status: Acute Assessment and Plan: due to ATN from: - hemodynamic instability/shock - pre-renal factors - concurrent use of ARB and diuretics prior to admission - severe anemia urine output has picked up. He May 26 100cc yesterday. Potassium is good today. Acidosis is resolved. he remains at high risk for the the need for renal replacement therapy/dialysis although his shock may make this difficult to perform . He is on 2 pressors. Since urine output is up and creatinine seems to be coming down a little, we can Continue medical therapy. (2) Stage 3a chronic kidney disease: Code(s): N18.31 - Chronic kidney disease, stage 3a Status: Chronic Assessment and Plan: baseline creatinine ~ 0.9 - 1.2mg/dl likely due to hypertension, diabetes, vascular disease, and age-related change (3) Shock: Code(s): R57.9 - Shock, unspecified Status: Acute Assessment and Plan: septic versus hypovolemic or combination of both?? follow cultures and on empiric antibiotics continue vasopressor therapy to maintain MAP - wean as tolerated Blood pressure seems to be pretty stable but he is on two pressor agents. (4) Acute respiratory failure: Code(s): J96.00 - Acute respiratory failure, unspecified whether with hypoxia or hypercapnia Status: Acute Assessment and Plan: on BiPAP PRN DNR/DNI at this time Discussed with Dr. Crow. (5) GI bleed: Code(s): K92.2 - Gastrointestinal hemorrhage, unspecified Status: Acute Assessment and Plan: Gastroenterology recommendations noted complicated by previous anticoagulation and new finding of liver cirrhosis PRBC transfusion per protocol follow H/H (6) Metabolic acidosis: Code(s): E87.2 - Acidosis Status: Acute Assessment and Plan: as noted on admission lactic acid noted due to metformin use along with MINAL(?) compensating with medical management follow trend (7) Cirrhosis: Code(s): K74.60 - Unspecified cirrhosis of liver Status: Acute Assessment and Plan: as noted by admission imaging hepatitis studies reviewed on octreotide And Norepinephrine. Gastroenterology following Subjective Date/time seen: 09/29/20 11:22 Interval history: Patient opens his eyes when I call his name. He is on BiPAP now. He is a little restless. Review of Systems Review of Systems: ROS unobtainable: Yes unobtainable due to medical condition Exam Narrative: Exam Narrative: General: Elderly male On BiPAP mask. Heart: normal S1 and S2; no rub Lungs: coarse and decreased at bases Abdomen: soft, nontender, nondistended, positive bowel sounds Extremities: Trace edema Skin: no rash Objective Data Vital Signs Vital Signs: Vital Signs - 24 hr 09/28/20 11:30 09/28/20 11:55 09/28/20 12:00 Temperature Pulse Rate 58 L Respiratory Rate Blood Pressure 114/83 110/98 H Pulse Oximetry 93 09/28/20 12:01 09/28/20 12:15 09/28/20 12:30 Temperature 35.8 C L Pulse Rate 55 L Respiratory Rate 22 H Blood Pressure 110/98 H 114/77 133/71 Pulse Oximetry 89 L 09/28/20 12:45 09/28/20 13:00 09/28/20 14:00 Temperature Pulse Rate 51 L Respiratory Rate Blood Pressure 118/80 108/68 Pulse Oximetry 09/28/20 14:15 09/28/20 14:16 09/28/20 14:33 Temperature 36.0 C L Pulse Rate 52 L Respiratory Rate 20 Blood Pressure 121/60 121/60 111/68 Pulse Oximetry 98 09/28/20 15:00 09/28/20 15:15 09/28/20 15:31 Temperature Pulse Rate Respiratory Rate Blood Pressure 108/74 125/50 L 120/58 L Pulse Oximetry 09/28/20 16:00 09/28/20 17:00 09/28/20 17:45 Temperature 35.9 C L Pulse Rate 50 L R
[2020-09-29 12:23] LABS: Glucose Point of Care 148 (65-105)
--- NOTE | 2020-09-29 13:19 | PM.IMPN ---
Progress Note: A&P Assessment and Plan (1) Shock: Code(s): R57.9 - Shock, unspecified Status: Acute Assessment and Plan: Hypovolemic versus septic shock. Cardiogenic shock is a consideration. EMR shows that he is typically bradycardic in the 50s. Despite aggressive hydration in ED he remained hypotensive, now on norepinephrine and vasopressin. MAP goal of > 65. Lactic acid continues to be elevated around 3.0. No obvious source of underlying infection though urinalysis is still pending. Broad-spectrum antibiotics including vancomycin and ceftriaxone. Blood cultures have been obtained and are pending. 09/29/20 13:26 09/28 patient 85-year-old male with history coronary artery disease status post CABG, systolic congestive heart failure, hypertension hyperlipidemia, atrial fibrillation for which he is taking Eliquis patient was brought to emergency department with generalized weakness he was found to be hypotensive 67/40 and profile anemia with hemoglobin of 5.3 and history rectal bleeding, emergency department patient was started on IV fluid and he recent 3 units of pack RBC however his blood pressure not improving and now on Levophed and vasopressin, CT scan of the abdomen showed liver cirrhosis, hepatitis B and C are negative, patient is given Kcentra to reverse effect of Eliquis, patient is currently on BiPAP unable to provide any review of symptoms he daughter is present in the room, patient is seen nutrition faculty member and further recommendation to follow. 09/28 today patient is off BiPAP on nasal cannula however his too weak to provide any review of symptom, he is on vesopressin and Levophed his blood pressure is improving, after receiving transfusion patient hemoglobin is stable, patient Eliquis and aspirin on hold and Eliquis was reversed, patient is seen by GI recommending EGD and colonoscopy to further evaluate source of bleeding pending consent from the family, patient with liver cirrhosis however hepatitis-B and C are negative, family is contemplating comfort care will continue to monitor and further recommendation to follow. 09/29 today patient is on BiPAP unable to provide review of symptom, patient remains on Levophed and is weaned off Odilon-synephrine and vasopressin he remains clinically stable and nutrition faculty member has started wean him off stress dose steroids, patient hemoglobin is stable was seen by GI recommending EGD and colonoscopy to further evaluate pending family consent, patient was on Eliquis is on hold for anemia, patient with liver cirrhosis etiology uncertain hepatitis B and C are negative, CT scan of the abdomen showed liver cirrhosis but no masses, he remains clinically stable his mentation is stable (2) Pancytopenia: Code(s): D61.818 - Other pancytopenia Status: Acute Assessment and Plan: Due to GI loss (dark colored stool was Hemoccult positive in the ED). Cannot rule out bone marrow suppression or dyscrasia. He is being transfused to a stable hemoglobin. Platelets currently at 51,000. (3) Acute kidney injury: Code(s): N17.9 - Acute kidney failure, unspecified Status: Acute Assessment and Plan: Secondary to hypoperfusion due to hypovolemia and hypotension. Cannot rule out ATN from underlying sepsis versus other. Alejandro catheter has been inserted. Oliguric with minimal output. Hopefully urine output will warehouse order picker with better perfusion. Continue to monitor strict I/O. Renal ultrasound in a.m. Avoid nephrotoxic agents. (4) GI bleed: Code(s): K92.2 - Gastrointestinal hemorrhage, unspecified Status: Acute Assessment and Plan: Dark stool was Hemoccult positive in the emergency department. He has been started on Protonix and octreotide drips. Ceftriaxone added given underlying cirrhosis. Transfuse to stable hemoglobin. Dr. Villalba (Gastroenterology) consulted. (5) Congestive heart failure: Code(s): I50.9 - Heart failure, unspecified
[2020-09-29 17:30] LABS: Glucose Point of Care 158 (65-105)
[2020-09-29] MEDS: INSULIN ASPART (*BKC) 100 UNITS/ML SUB-Q (23:45)
[2020-09-30] VITALS (31 sets, daily range): BP systolic 100–153; BP diastolic 46–98; PULSE 50–62; RESP 8–19; TEMP 36.1–36.6; O2SAT 96–100
[2020-09-30 00:14] LABS: Glucose Point of Care 239 (65-105)
[2020-09-30] MEDS: ALBUTEROL SULFATE NEB 2.5 MG/0.5 ML INH INHALATION ×4 (01:27→21:47)
[2020-09-30 04:25] LABS: Alveolar/Arterial O2 Gradient 42.6 mmHg; Carboxyhemoglobin 0.3 % THb (0-2.0); Fractional Inspired Oxygen 28 %; HCO3 ABG 27.1 mEq/l (22.0-26.0); Methemoglobin ABG 0.3 %THb (0-1.5); Oxygen Content ABG 13.2 %vol (16.0-22.0); Oxyhemoglobin 95.8 % THb (90.0-100.0); PCO2 ABG 50.5 mmHg (35.0-45.0); PO2 ABG 97.5 mmHg (80.0-100.0); PO2 FiO2 Ratio Arterial Blood 3.48 %; Reduced Hemoglobin 3.6 %THb (0-5.0); Total Hemoglobin 9.7 g/dL (12.0-18.0); pH ABG 7.348 (7.350-7.450)
[2020-09-30 04:27] LABS: Device NON-INVASIVE VENT; Modified Allen's Test Unable to perform; Non-Invasive Expiratory Pressure 8 CMH2O; Non-Invasive Inspiratory Pressure 16 CMH2O; Non-Invasive Vent Rate 4 /MIN; Site Drawn RIGHT RADIAL
[2020-09-30 04:27] LABS: Hemoglobin 8.5 g/dL (14.0-18.0); Mean Corpuscular HGB Conc 31.5 g/dl (32-36); Mean Corpuscular Hemoglobin 28.7 pg (26-34); Mean Corpuscular Volume 91.2 fl (80-100); Platelet Count Result 99 k/mm3 (150-375); Red Blood Count 2.96 M/mm3 (4.6-6.20); Red Cell Distribution Width 17.5 % (11.5-14.5); White Blood Count 8.7 K/mm3 (4.5-10.0)
[2020-09-30 04:41] LABS: INR 1.4; Prothrombin Time 17.4 Seconds (11.1-14.7)
[2020-09-30 04:44] LABS: Alanine Aminotransferase 92 U/L (4-50); Albumin Level 3.3 g/dL (3.5-5.1); Alkaline Phosphatase 46 U/L (38-126); Anion Gap 6 mmol/L (8-16); Aspartate Amino Transferase 91 U/L (17-59); Blood Urea Nitrogen 113 mg/dL (9-20); Calcium 8.4 mg/dL (8.4-10.2); Carbon Dioxide 31 mmol/L (22-30); Chloride 101 mmol/L (98-107); Estimated CRCL calculation 27 ml/min; Estimated Glomerular Filt Rate 27; Glucose 179 mg/dL (75-110); Phosphorus 5.1 mg/dL (2.5-4.5); Potassium 3.9 mmol/L (3.4-5.0); Sodium 138 mmol/L (137-145)
[2020-09-30] MEDS: HYDROCORTISONE SODIUM SUCCINATE 100 MG/2 ML VIAL 50 MG IV PUSH ×3 (05:49→17:08)
[2020-09-30] MEDS: CENTRAL LINE FLUSH 10 ML IV PUSH ×3 (05:49→22:35)
[2020-09-30 06:15] LABS: Glucose Point of Care 179 (65-105)
[2020-09-30] MEDS: NOREPINEPHRINE 8 MG/D5W 250 ML 8 MG/250 ML BAG 7.5 MG IV CONT (09:09)
[2020-09-30] MEDS: PANTOPRAZOLE SODIUM IV 40 MG VIAL IV PUSH ×2 (09:14→20:52)
--- NOTE | 2020-09-30 09:15 | P.PNNP_ITS ---
Progress Note: A&P Assessment and Plan (1) Acute kidney injury: Code(s): N17.9 - Acute kidney failure, unspecified Status: Acute Assessment and Plan: * due to ATN from: - hemodynamic instability/shock - pre-renal factors - concurrent use of ARB and diuretics prior to admission - severe anemia * urine output has picked up. His diuretics were discontinued yesterday and he still made almost 2L of urine overnight. * Potassium is good today. * Acidosis is resolved. * His BUN and creatinine have improved. * Will continue off diuretics for now. Hopefully renal function will continue to improve. (2) Stage 3a chronic kidney disease: Code(s): N18.31 - Chronic kidney disease, stage 3a Status: Chronic Assessment and Plan: * baseline creatinine ~ 0.9 - 1.2mg/dl * likely due to hypertension, diabetes, vascular disease, and age-related change (3) Shock: Code(s): R57.9 - Shock, unspecified Status: Acute Assessment and Plan: * septic versus hypovolemic or combination of both?? * follow cultures and on empiric antibiotics * He is off the vasopressin. His norepinephrine has been weaned to 6 and as I was seeing the patient they actually reduce the drip to 4. * Blood pressure seems to be doing pretty well. (4) Acute respiratory failure: Code(s): J96.00 - Acute respiratory failure, unspecified whether with hypoxia or hypercapnia Status: Acute Assessment and Plan: * on BiPAP PRN * DNR/DNI at this time * The patient has multiple medical issues such as heart failure, cirrhosis, renal failure. Overall prognosis is poor. (5) GI bleed: Code(s): K92.2 - Gastrointestinal hemorrhage, unspecified Status: Acute Assessment and Plan: * Gastroenterology recommendations noted * complicated by previous anticoagulation and new finding of liver cirrhosis * PRBC transfusion per protocol * follow H/H (6) Metabolic acidosis: Code(s): E87.2 - Acidosis Status: Acute Assessment and Plan: * This is resolved. * Latest last take acid level is normal. (7) Cirrhosis: Code(s): K74.60 - Unspecified cirrhosis of liver Status: Acute Assessment and Plan: * as noted by admission imaging * hepatitis B surface antibody and C antibody are negative. * Liver enzymes are mildly high but stable. * Gastroenterology following Subjective Date/time seen: 09/30/20 09:15 Interval history: Patient opens his eyes when I call his name. Restless. He is on BiPAP now. Review of Systems Review of Systems: ROS unobtainable: Yes unobtainable due to medical condition Exam Narrative: Exam Narrative: General: Elderly male On BiPAP mask. Heart: normal S1 and S2; no rub Lungs: coarse and decreased at bases Abdomen: soft, nontender, nondistended, positive bowel sounds Extremities: 1+ presacral edema Skin: no rash Objective Data Vital Signs Vital Signs: Vital Signs - 24 hr 09/29/20 09:25 09/29/20 10:00 09/29/20 11:50 Temperature 36.6 C Pulse Rate 68 63 Respiratory Rate 20 17 Blood Pressure 110/77 Pulse Oximetry 100 100 09/29/20 12:00 09/29/20 13:52 09/29/20 14:00 Temperature 36.9 C 36.8 C Pulse Rate 58 L 69 Respirat
--- NOTE | 2020-09-30 09:15 | PM.PNNEP ---
Progress Note: A&P Assessment and Plan (1) Acute kidney injury: Code(s): N17.9 - Acute kidney failure, unspecified Status: Acute Assessment and Plan: due to ATN from: - hemodynamic instability/shock - pre-renal factors - concurrent use of ARB and diuretics prior to admission - severe anemia urine output has picked up. His diuretics were discontinued yesterday and he still made almost 2L of urine overnight. Potassium is good today. Acidosis is resolved. His BUN and creatinine have improved. Will continue off diuretics for now. Hopefully renal function will continue to improve. (2) Stage 3a chronic kidney disease: Code(s): N18.31 - Chronic kidney disease, stage 3a Status: Chronic Assessment and Plan: baseline creatinine ~ 0.9 - 1.2mg/dl likely due to hypertension, diabetes, vascular disease, and age-related change (3) Shock: Code(s): R57.9 - Shock, unspecified Status: Acute Assessment and Plan: septic versus hypovolemic or combination of both?? follow cultures and on empiric antibiotics He is off the vasopressin. His norepinephrine has been weaned to 6 and as I was seeing the patient they actually reduce the drip to 4. Blood pressure seems to be doing pretty well. (4) Acute respiratory failure: Code(s): J96.00 - Acute respiratory failure, unspecified whether with hypoxia or hypercapnia Status: Acute Assessment and Plan: on BiPAP PRN DNR/DNI at this time The patient has multiple medical issues such as heart failure, cirrhosis, renal failure. Overall prognosis is poor. (5) GI bleed: Code(s): K92.2 - Gastrointestinal hemorrhage, unspecified Status: Acute Assessment and Plan: Gastroenterology recommendations noted complicated by previous anticoagulation and new finding of liver cirrhosis PRBC transfusion per protocol follow H/H (6) Metabolic acidosis: Code(s): E87.2 - Acidosis Status: Acute Assessment and Plan: This is resolved. Latest last take acid level is normal. (7) Cirrhosis: Code(s): K74.60 - Unspecified cirrhosis of liver Status: Acute Assessment and Plan: as noted by admission imaging hepatitis B surface antibody and C antibody are negative. Liver enzymes are mildly high but stable. Gastroenterology following Subjective Date/time seen: 09/30/20 09:15 Interval history: Patient opens his eyes when I call his name. Restless. He is on BiPAP now. Review of Systems Review of Systems: ROS unobtainable: Yes unobtainable due to medical condition Exam Narrative: Exam Narrative: General: Elderly male On BiPAP mask. Heart: normal S1 and S2; no rub Lungs: coarse and decreased at bases Abdomen: soft, nontender, nondistended, positive bowel sounds Extremities: 1+ presacral edema Skin: no rash Objective Data Vital Signs Vital Signs: Vital Signs - 24 hr 09/29/20 09:25 09/29/20 10:00 09/29/20 11:50 Temperature 36.6 C Pulse Rate 68 63 Respiratory Rate 20 17 Blood Pressure 110/77 Pulse Oximetry 100 100 09/29/20 12:00 09/29/20 13:52 09/29/20 14:00 Temperature 36.9 C 36.8 C Pulse Rate 58 L 69 Respiratory Rate 21 H 17 Blood Pressure 138/106 H 108/47 L Pulse Oximetry 97 97 100 09/29/20 14:36 09/29/20 15:45 09/29/20 16:00 Temperature 36.7 C Pulse Rate 53 L 57 L Respiratory Rate 12 15 Blood Pressure 114/51 L Pulse Oximetry 100 100 09/29/20 18:00 09/29/20 19:35 09/29/20 19:48 Temperature 36.7 C Pulse Rate 65 60 55 L Respiratory Rate 13 13 15 Blood Pressure 113/63 Pulse Oximetry 100 100 09/29/20 20:00 09/29/20 21:56 09/29/20 22:00 Temperature 36.6 C 36.5 C Pulse Rate 60 60 59 L Respiratory Rate 12 17 20 Blood Pressure 115/61 131/60 Pulse Oximetry 100 100 100 09/29/20 23:30 09/29/20 23:50
[2020-09-30 12:10] LABS: Glucose Point of Care 156 (65-105)
--- NOTE | 2020-09-30 13:10 | WPDINTPN ---
Progress Note: A&P Assessment and Plan (1) Shock: Code(s): R57.9 - Shock, unspecified Status: Acute Assessment and Plan: Hypovolemic versus septic Continue Levophed. Wean pressors if tolerated. He has been weaned off from Odilon-Synephrine and vasopressin. Continue to monitor hemodynamics closely. Lactate is within normal range. He is mentating well though he is minimally confused. Urine output is improving. Start weaning stress dose steroid once his hemodynamics improved. (2) GI bleed: Code(s): K92.2 - Gastrointestinal hemorrhage, unspecified Status: Acute Assessment and Plan: Gastroenterology service has been consulted. Continue to keep him NPO. Pantoprazole drip was switched to b.i.d. dosing of pantoprazole. off octreotide drip now H&H seems to be stable. No further outgoing bleeding has been reported other than small bowel movements with melanotic stool. No hematemesis or hematochezia noted. EGD was considered but has not been performed yet because of unstable hemodynamics and family reluctance for him to undergo invasive procedure with unstable hemodynamics. Will eventually need EGD. He has received Kcentra at the time of presentation. Continue to hold Eliquis. INR is within acceptable range now. Continue to monitor H&H. PRBC transfusion if indicated. (3) Cirrhosis: Code(s): K74.60 - Unspecified cirrhosis of liver Status: Acute Assessment and Plan: Abdominal imaging showed cirrhosis with elevated INR and low platelet count. He does not have any known history of hepatitis B and C. Hepatitis-B and C is negative during this admission. Gastroenterology service recommendations appreciated. E He is on empiric antibiotic which should cover SBP. He has minimal ascites. (4) Chronic anticoagulation: Code(s): Z79.01 - detention (current) use of anticoagulants Status: Acute Assessment and Plan: Hold Eliquis because of ongoing GI bleed. He was given Kcentra at the time of presentation. INR is stable. (5) Acute kidney injury: Code(s): N17.9 - Acute kidney failure, unspecified Status: Acute Assessment and Plan: Likely [facility] Nephrology service recommendations appreciated. Patient has good urine output right now. Continue to monitor renal parameters and electrolytes. Hold Lasix Creatinine and BUN are improving (6) Anemia: Qualifiers: Anemia type: unspecified type Qualified Code(s): D64.9 - Anemia, unspecified Code(s): D64.9 - Anemia, unspecified Status: Acute Assessment and Plan: Likely secondary to acute on chronic blood loss from GI tract. Continue to monitor H&H. PRBC transfusion if indicated. (7) CAD (coronary artery disease): Code(s): I25.10 - Atherosclerotic heart disease of [place] coronary artery without angina pectoris Status: Acute Assessment and Plan: Continue to monitor. Echo is pending. Hold Eliquis, carvedilol, metolazone and Entresto. (8) Pleural effusion: Code(s): J90 - Pleural effusion, not elsewhere classified Status: Acute Assessment and Plan: May need thoracentesis specially on the right side both diagnostic and therapeutic purposes if his hemodynamics improved. He is requiring 2-3 L of oxygen and does not seem to be in respiratory distress though with mild tachypnea. (9) Metabolic acidosis: Code(s): E87.2 - Acidosis Status: Acute Assessment and Plan: ABG showing mixed metabolic and respiratory acidosis. BiPAP will be offered for increased work of breathing and tachypnea. Nephrology service recommendations appreciated. Creatinine seems stable with no worsening. Good urine output of about 2.6 L yesterday with 1 dose of Lasix. Will give an additional dose of Lasix today. His albumin is low secondary to his cirrhosis and will give him some albumin today. Continue t
--- NOTE | 2020-09-30 14:25 | PM.IMPN ---
Progress Note: A&P Assessment and Plan (1) Shock: Code(s): R57.9 - Shock, unspecified Status: Acute Assessment and Plan: Hypovolemic versus septic shock. Cardiogenic shock is a consideration. EMR shows that he is typically bradycardic in the 50s. Despite aggressive hydration in ED he remained hypotensive, now on norepinephrine and vasopressin. MAP goal of > 65. Lactic acid continues to be elevated around 3.0. No obvious source of underlying infection though urinalysis is still pending. Broad-spectrum antibiotics including vancomycin and ceftriaxone. Blood cultures have been obtained and are pending. 09/30/20 14:25 09/28 patient 85-year-old male with history coronary artery disease status post CABG, systolic congestive heart failure, hypertension hyperlipidemia, atrial fibrillation for which he is taking Eliquis patient was brought to emergency department with generalized weakness he was found to be hypotensive 67/40 and profile anemia with hemoglobin of 5.3 and history rectal bleeding, emergency department patient was started on IV fluid and he recent 3 units of pack RBC however his blood pressure not improving and now on Levophed and vasopressin, CT scan of the abdomen showed liver cirrhosis, hepatitis B and C are negative, patient is given Kcentra to reverse effect of Eliquis, patient is currently on BiPAP unable to provide any review of symptoms he daughter is present in the room, patient is seen copying machine repairer and further recommendation to follow. 09/28 today patient is off BiPAP on nasal cannula however his too weak to provide any review of symptom, he is on vesopressin and Levophed his blood pressure is improving, after receiving transfusion patient hemoglobin is stable, patient Eliquis and aspirin on hold and Eliquis was reversed, patient is seen by GI recommending EGD and colonoscopy to further evaluate source of bleeding pending consent from the family, patient with liver cirrhosis however hepatitis-B and C are negative, family is contemplating comfort care will continue to monitor and further recommendation to follow. 09/29 today patient is on BiPAP unable to provide review of symptom, patient remains on Levophed and is weaned off Odilon-synephrine and vasopressin he remains clinically stable and copying machine repairer has started wean him off stress dose steroids, patient hemoglobin is stable was seen by GI recommending EGD and colonoscopy to further evaluate pending family consent, patient was on Eliquis is on hold for anemia, patient with liver cirrhosis etiology uncertain hepatitis B and C are negative, CT scan of the abdomen showed liver cirrhosis but no masses, he remains clinically stable his mentation is stable 09/30 patient remains clinically stable but somnolent unable to provide any review of systems, patient with profound anemia after arrival patient was given transfusion and hemoglobin remains stable was seen by GI recommending EGD pending family consent. Patient seen in copying machine repairer, nephrology, and GI and appreciate (2) Pancytopenia: Code(s): D61.818 - Other pancytopenia Status: Acute Assessment and Plan: Due to GI loss (dark colored stool was Hemoccult positive in the ED). Cannot rule out bone marrow suppression or dyscrasia. He is being transfused to a stable hemoglobin. Platelets currently at 51,000. (3) Acute kidney injury: Code(s): N17.9 - Acute kidney failure, unspecified Status: Acute Assessment and Plan: Secondary to hypoperfusion due to hypovolemia and hypotension. Cannot rule out ATN from underlying sepsis versus other. Alejandro catheter has been inserted. Oliguric with minimal output. Hopefully urine output will sheepskin pickler with better perfusion. Continue to monitor strict I/O. Renal ultrasound in a.m. Avoid nephrotoxic agents. (4) GI bleed: Code(s): K92.2 - Gastrointestinal hemorrhage, unspecified Status: Acute Assessment and Plan: Dark stool was
[2020-09-30 18:11] LABS: Glucose Point of Care 156 (65-105)
[2020-10-01] VITALS (26 sets, daily range): BP systolic 89–125; BP diastolic 46–67; PULSE 50–68; RESP 11–25; TEMP 36.1–36.6; O2SAT 91–100; BMI 32.3
[2020-10-01 00:26] LABS: Glucose Point of Care 163 (65-105)
[2020-10-01] MEDS: HYDROCORTISONE SODIUM SUCCINATE 100 MG/2 ML VIAL 50 MG IV PUSH ×5 (00:57→23:15)
[2020-10-01] MEDS: ALBUTEROL SULFATE NEB 2.5 MG/0.5 ML INH INHALATION ×4 (03:15→19:43)
[2020-10-01 05:00] LABS: Alveolar/Arterial O2 Gradient 40.8 mmHg; Base Excess ABG 4.5 mEq/l (+/-2.0); Fractional Inspired Oxygen 28 %; HCO3 ABG 31.1 mEq/l (22.0-26.0); Methemoglobin ABG 0.4 %THb (0-1.5); Oxygen Content ABG 13.2 %vol (16.0-22.0); Oxygen Saturation ABG 96.4 % (95.0-100.0); Oxyhemoglobin 95.5 % THb (90.0-100.0); PCO2 ABG 57.6 mmHg (35.0-45.0); PO2 ABG 90.9 mmHg (80.0-100.0); PO2 FiO2 Ratio Arterial Blood 3.25 %; Reduced Hemoglobin 4.1 %THb (0-5.0); Total Hemoglobin 9.7 g/dL (12.0-18.0)
[2020-10-01 05:01] LABS: Device NASAL CANNULA; Modified Allen's Test Pass; Site Drawn RIGHT RADIAL
[2020-10-01 06:08] LABS: Hematocrit 27.1 % (42.0-52.0); Hemoglobin 8.3 g/dL (14.0-18.0); Mean Corpuscular HGB Conc 30.6 g/dl (32-36); Mean Corpuscular Hemoglobin 28.3 pg (26-34); Mean Corpuscular Volume 92.5 fl (80-100); Mean Platelet Volume 11.2 fl (7.4-10.4); Platelet Count Result 79 k/mm3 (150-375); Red Blood Count 2.93 M/mm3 (4.6-6.20); Red Cell Distribution Width 17.2 % (11.5-14.5)
[2020-10-01 06:18] LABS: INR 1.3; Prothrombin Time 16.6 Seconds (11.1-14.7)
[2020-10-01 06:25] LABS: Alanine Aminotransferase 88 U/L (4-50); Alkaline Phosphatase 41 U/L (38-126); Anion Gap 3 mmol/L (8-16); Aspartate Amino Transferase 70 U/L (17-59); Bilirubin,Total 0.8 mg/dL (0.2-1.3); Blood Urea Nitrogen 101 mg/dL (9-20); Calcium 8.3 mg/dL (8.4-10.2); Carbon Dioxide 36 mmol/L (22-30); Chloride 104 mmol/L (98-107); Estimated CRCL calculation 33 ml/min; Estimated Glomerular Filt Rate 34; Glucose 155 mg/dL (75-110); Magnesium 2.1 mg/dL (1.6-2.3); Phosphorus 3.9 mg/dL (2.5-4.5); Potassium 3.7 mmol/L (3.4-5.0); Sodium 143 mmol/L (137-145)
[2020-10-01] MEDS: CENTRAL LINE FLUSH 10 ML IV PUSH ×3 (07:18→21:31)
--- NOTE | 2020-10-01 09:35 | WPDINTPN ---
Progress Note: A&P Assessment and Plan (1) Shock: Code(s): R57.9 - Shock, unspecified Status: Acute Assessment and Plan: Hypovolemic versus septic Improved. Off Levophed at this time. Continue to monitor hemodynamics closely. He is mentating well though he is minimally confused. Urine output is improving. Start weaning stress dose if stays off of Levophed (2) GI bleed: Code(s): K92.2 - Gastrointestinal hemorrhage, unspecified Status: Acute Assessment and Plan: Gastroenterology service has been consulted. Continue to keep him NPO. Pantoprazole drip was switched to b.i.d. dosing of pantoprazole. off octreotide drip now H&H seems to be stable. No further outgoing bleeding has been reported other than small bowel movements with melanotic stool. No hematemesis or hematochezia noted. EGD was considered but has not been performed yet because of unstable hemodynamics and family reluctance for him to undergo invasive procedure with unstable hemodynamics. Will eventually need EGD. He has received Kcentra at the time of presentation. Continue to hold Eliquis. INR is within acceptable range now. Continue to monitor H&H. PRBC transfusion if indicated. Will add start diet if no plan for EGD (3) Cirrhosis: Code(s): K74.60 - Unspecified cirrhosis of liver Status: Acute Assessment and Plan: Abdominal imaging showed cirrhosis with elevated INR and low platelet count. He does not have any known history of hepatitis B and C. Hepatitis-B and C is negative during this admission. Gastroenterology service recommendations appreciated. E He is on empiric antibiotic which should cover SBP. He has minimal ascites. (4) Chronic anticoagulation: Code(s): Z79.01 - intermediate (current) use of anticoagulants Status: Acute Assessment and Plan: Hold Eliquis because of ongoing GI bleed. He was given Kcentra at the time of presentation. INR is stable. (5) Acute kidney injury: Code(s): N17.9 - Acute kidney failure, unspecified Status: Acute Assessment and Plan: Likely AT Nephrology service recommendations appreciated. Patient has good urine output right now. Continue to monitor renal parameters and electrolytes. Hold Lasix Creatinine and BUN are improving (6) Anemia: Qualifiers: Anemia type: unspecified type Qualified Code(s): D64.9 - Anemia, unspecified Code(s): D64.9 - Anemia, unspecified Status: Acute Assessment and Plan: Likely secondary to acute on chronic blood loss from GI tract. Continue to monitor H&H. PRBC transfusion if indicated. (7) CAD (coronary artery disease): Code(s): I25.10 - Atherosclerotic heart disease of [place] coronary artery without angina pectoris Status: Acute Assessment and Plan: Continue to monitor. Echo is pending. Hold Eliquis, carvedilol, metolazone and Entresto. (8) Pleural effusion: Code(s): J90 - Pleural effusion, not elsewhere classified Status: Acute Assessment and Plan: Will plan for ultrasound-guided right thoracentesis since he has clinically improved He does not seem to be in respiratory distress though with mild tachypnea. (9) Acute respiratory failure: Code(s): J96.00 - Acute respiratory failure, unspecified whether with hypoxia or hypercapnia Status: Acute Assessment and Plan: He is DNR DNI. He was offered intubation on the night of presentation for severe acidosis and resultant tachypnea but he refused. Family is agreeable to his wishes. He has hypoxic and hypercarbic respiratory failure but hypercarbia as fairly compensated He has been mostly refusing for BiPAP and at times would use it for 2-3 hours after much persuasion. He did not BiPAP last night but wore nasal cannula this morning Continue nasal cannula at this time but may need BiPAP on p.r.n. basis Patient has go
[2020-10-01] MEDS: PANTOPRAZOLE SODIUM IV 40 MG VIAL IV PUSH ×2 (11:55→20:52)
[2020-10-01 12:27] LABS: Glucose Point of Care 132 (65-105)
--- NOTE | 2020-10-01 12:36 | WPDANESEPPF ---
Anes - Initial Pre Proc Eval Procedure: Operation Date: 10/01/20 15:45 Proposed Procedures p Esophagogastroduodenoscopy - Vaughn Baca MD Date/Time: 10/01/20 12:36 Surgeon: Vishal Read MD Pre Op Diagnosis: Weakness, hypotension, GI bleed, anemia Patient Data Age: 85 Gender: M Height: 6 ft Weight: 108.3 kg Last Vital Signs Temp 97.2 F L 10/01/20 12:00 Pulse 59 L 10/01/20 12:00 Resp 16 10/01/20 12:00 BP 105/62 10/01/20 12:00 Pulse Ox 99 10/01/20 12:00 Allergies Allergy/AdvReac Type Severity Reaction Status Date / Time No Known Allergies Allergy Verified 09/26/20 17:54 Home Medications Medication Instructions Recorded Confirmed Type buspirone 10 mg PO HS 02/05/20 09/26/20 History carvedilol 25 mg PO BID 02/05/20 09/26/20 History furosemide 20 mg PO BID 02/05/20 09/26/20 History metformin 1,000 mg PO BID 02/05/20 09/26/20 History niacin 500 mg PO BID 02/05/20 09/26/20 History simvastatin 40 mg PO DAILY 02/05/20 09/26/20 History cephalexin 500 mg PO Q8H #30 cap 09/23/20 09/26/20 Rx apixaban [Eliquis] 5 mg PO BID 09/26/20 09/26/20 History metolazone 2.5 mg PO DAILY 09/26/20 09/26/20 History pantoprazole 40 mg PO DAILY 09/26/20 09/26/20 History sacubitril-valsartan [Entresto] 24 - 26 tablet PO BID 09/26/20 09/26/20 History Laboratory Tests 09/30/20 10/01/20 10/01/20 17:06 00:23 04:49 WBC RBC Hgb Hct MCV MCH MCHC RDW Plt Count MPV PT INR Puncture Site Right radial ABG pH 7.350 (7.350-7.450) ABG pCO2 57.6 mmHg H mmHg (35.0-45.0) ABG pO2 90.9 mmHg mmHg (80.0-100.0) ABG PO2/FiO2 Ratio 3.25 % % ABG HCO3 31.1 mEq/l H mEq/l (22.0-26.0) ABG O2 Saturation 96.4 % % (95.0-100.0) ABG O2 Content 13.2 %vol L %vol (16.0-22.0) ABG Base Excess 4.5 mEq/l mEq/l (+/-2.0) A-a Gradient 40.8 mmHg mmHg Oxyhemoglobin 95.5 % THb % THb (90.0-100.0) Carboxyhemoglobin 0.0 % THb % THb (0-2.0) Methemoglobin 0.4 %THb %THb (0-1.5) Reduced Hemoglobin 4.1 %THb %THb (0-5.0) Total Hemoglobin 9.7 g/dL L g/dL (12.0-18.0) O2 Delivery Device Nasal cannula O2 Liters/Min 2.0 LPM LPM FiO2 28 % % Sodium Potassium Chloride Carbon Dioxide Anion Gap BUN Creatinine Estim Creat Clear Calc Estimated GFR Glucose POC Capillary Glucose 156 mg/dl H mg/dl 163 mg/dl H mg/dl (65-105) (65-105) Calcium Phosphorus Magnesium Total Bilirubin AST ALT Alkaline Phosphatase Total Protein Albumin 10/01/20 10/01/20 10/01/20 05:18 05:18 05:18 WBC 7.0 K/mm3 K/mm3 (4.5-10.0) RBC 2.93 M/mm3 L M/mm3 (4.6-6.20) Hgb 8.3 g/dL L g/dL (14.0-18.0) Hct 27.1 % L % (42.0-52.0) MCV 92.5 fl fl (80-100) MCH 28.3 pg pg (26-34) MCHC 30.6 g/dl L g/dl (32-36) RDW 17.2 % H % (11.5-14.5) Plt Count 79 k/mm3 L k/mm3 (150-375) MPV 11.2 fl H fl (7.4-10.4) PT 16.6 Seconds H Seconds (11.1-14.7) INR 1.3 Puncture Site ABG pH ABG pCO2 ABG pO2 ABG PO2/FiO2 Ratio ABG HCO3 ABG O2 Saturation ABG O2 Content ABG Base Excess A-a Gradient Oxyhemoglobin Carboxyhemoglobin Methemoglobin Reduced Hemoglobin Total Hemoglobin O2 Delivery Device
--- NOTE | 2020-10-01 13:02 | P.PNAN_ITS ---
Anes - Initial Pre Proc Eval Procedure: Operation Date: 10/01/20 15:45 Proposed Procedures p Esophagogastroduodenoscopy - Vaughn Baca MD Date/Time: 10/01/20 13:02 Surgeon: Vishal Read MD Pre Op Diagnosis: Weakness, hypotension, GI bleed, anemia Patient Data Age: 85 Gender: M Height: 6 ft Weight: 108.3 kg Last Vital Signs Temp 97.2 F L 10/01/20 12:00 Pulse 59 L 10/01/20 12:00 Resp 16 10/01/20 12:00 BP 105/62 10/01/20 12:00 Pulse Ox 99 10/01/20 12:00 Allergies Allergy/AdvReac Type Severity Reaction Status Date / Time No Known Allergies Allergy Verified 09/26/20 17:54 Home Medications Medication Instructions Recorded Confirmed Type buspirone 10 mg PO HS 02/05/20 09/26/20 History carvedilol 25 mg PO BID 02/05/20 09/26/20 History furosemide 20 mg PO BID 02/05/20 09/26/20 History metformin 1,000 mg PO BID 02/05/20 09/26/20 History niacin 500 mg PO BID 02/05/20 09/26/20 History simvastatin 40 mg PO DAILY 02/05/20 09/26/20 History cephalexin 500 mg PO Q8H #30 cap 09/23/20 09/26/20 Rx apixaban [Eliquis] 5 mg PO BID 09/26/20 09/26/20 History metolazone 2.5 mg PO DAILY 09/26/20 09/26/20 History pantoprazole 40 mg PO DAILY 09/26/20 09/26/20 History sacubitril-valsartan [Entresto] 24 - 26 tablet PO BID 09/26/20 09/26/20 History Laboratory Tests 09/30/20 10/01/20 10/01/20 17:06 00:23 04:49 WBC RBC Hgb Hct MCV MCH MCHC RDW Plt Count MPV PT INR Puncture Site Right radial ABG pH 7.350 (7.350-7.450) ABG pCO2 57.6 mmHg H mmHg (35.0-45.0) ABG pO2 90.9 mmHg mmHg (80.0-100.0) ABG PO2/FiO2 Ratio 3.25 % % ABG HCO3 31.1 mEq/l H mEq/l (22.0-26.0) ABG O2 Saturation 96.4 % % (95.0-100.0) ABG O2 Content 13.2 %vol L %vol (16.0-22.0) ABG Base Excess 4.5 mEq/l mEq/l (+/-2.0) A-a Gradient 40.8 mmHg mmHg Oxyhemoglobin 95.5 % THb % THb (90.0-100.0) Carboxyhemoglobin 0.0 % THb % THb (0-2.0) Methemoglobin 0.4 %THb %THb (0-1.5) Reduced Hemoglobin 4.1 %THb %THb (0-5.0) Total Hemoglobin 9.7 g/dL L g/dL (12.0-18.0) O2 Delivery Device Nasal cannula O2 Liters/Min 2.0 LPM LPM FiO2 28 % % Sodium Potassium Chloride Carbon Dioxide Anion Gap BUN Creatinine Estim Creat Clear Calc
[2020-10-01] MEDS: SODIUM CHLORIDE 0.9% IV 500 ML 10 ML IV CONT (13:55)
[2020-10-01] MEDS: BENZOCAINE (*SP) 60 ML SPRAY CAN (HURRICAINE) 1 SPRAY MUCOUS MEM (14:04)
[2020-10-01 14:32] LABS: Glucose Point of Care 161 (65-105)
--- NOTE | 2020-10-01 15:03 | PCSTNOTE ---
Attempted to complete bedside swallow evaluation; however, pt was reportedly in the GI lab. ST will complete evaluation on 10-02-20
--- NOTE | 2020-10-01 16:23 | P.PNNP_ITS ---
Progress Note: A&P Assessment and Plan (1) Acute kidney injury: Code(s): N17.9 - Acute kidney failure, unspecified Status: Acute Assessment and Plan: * due to ATN from: - hemodynamic instability/shock - pre-renal factors - concurrent use of ARB and diuretics prior to admission - severe anemia * urine output is still doing well. He made about 2L yesterday. * Pressor requirements are down. * Discussed with Dr. Grimes. We will watch off diuretics for now. * His BUN and creatinine have improved. * Will continue off diuretics for now. Hopefully renal function will continue to improve. (2) Stage 3a chronic kidney disease: Code(s): N18.31 - Chronic kidney disease, stage 3a Status: Chronic Assessment and Plan: * baseline creatinine ~ 0.9 - 1.2mg/dl * likely due to hypertension, diabetes, vascular disease, and age-related change (3) Shock: Code(s): R57.9 - Shock, unspecified Status: Acute Assessment and Plan: * Improving. (4) Acute respiratory failure: Code(s): J96.00 - Acute respiratory failure, unspecified whether with hypoxia or hypercapnia Status: Acute Assessment and Plan: * on BiPAP PRN * DNR/DNI at this time * The patient has multiple medical issues such as heart failure, cirrhosis, renal failure. Overall prognosis is poor. (5) GI bleed: Code(s): K92.2 - Gastrointestinal hemorrhage, unspecified Status: Acute Assessment and Plan: * Gastroenterology recommendations noted * complicated by previous anticoagulation and new finding of liver cirrhosis * PRBC transfusion per protocol * Hemoglobin stable in the 8. (6) Metabolic acidosis: Code(s): E87.2 - Acidosis Status: Acute Assessment and Plan: * This is resolved. * Latest lactic acid level is normal. (7) Cirrhosis: Code(s): K74.60 - Unspecified cirrhosis of liver Status: Acute Assessment and Plan: * as noted by admission imaging * hepatitis B surface antibody and C antibody are negative. * Liver enzymes are mildly high but stable. * Gastroenterology following Subjective Date/time seen: 10/01/20 16:23 Interval history: patient is off the BiPAP machine and is on nasal cannula although he has pulled it out of his nose. He is not short of breath. His O2 sats are 99%. He is calm and conversive. He feels okay. Review of Systems Cardiovascular: Cardiovascular: Reports no additional cardiovascular complaints Respiratory: Respiratory: Reports no additional respiratory complaints Gastrointestinal: Gastrointestinal: Reports no additional gastrointestinal complaints Genitourinary: Genitourinary: Reports no additional male genitourinary complaints Exam Narrative: Exam Narrative: General: Elderly male On BiPAP mask. Heart: normal S1 and S2; no rub Lungs: coarse and decreased at bases Abdomen: soft, nontender, nondistended, positive bowel sounds Extremities: 1+ presacral edema Skin: no rash Or subcu nodules Objective Data Vital Signs Vital Signs: Vital Signs - 24 hr 09/30/20 17:13 09/30/20 18:00 09/30/20 20:00 Temperature 36.4 C 36.6 C Pulse Rate 55 L 56 L Respiratory Rate 12 13 Blood Pressure 100/49 L 108/58 L 116/53 L Pulse Oximetry 99
--- NOTE | 2020-10-01 16:23 | PM.PNNEP ---
Progress Note: A&P Assessment and Plan (1) Acute kidney injury: Code(s): N17.9 - Acute kidney failure, unspecified Status: Acute Assessment and Plan: due to ATN from: - hemodynamic instability/shock - pre-renal factors - concurrent use of ARB and diuretics prior to admission - severe anemia urine output is still doing well. He made about 2L yesterday. Pressor requirements are down. Discussed with Dr. Grimes. We will watch off diuretics for now. His BUN and creatinine have improved. Will continue off diuretics for now. Hopefully renal function will continue to improve. (2) Stage 3a chronic kidney disease: Code(s): N18.31 - Chronic kidney disease, stage 3a Status: Chronic Assessment and Plan: baseline creatinine ~ 0.9 - 1.2mg/dl likely due to hypertension, diabetes, vascular disease, and age-related change (3) Shock: Code(s): R57.9 - Shock, unspecified Status: Acute Assessment and Plan: Improving. (4) Acute respiratory failure: Code(s): J96.00 - Acute respiratory failure, unspecified whether with hypoxia or hypercapnia Status: Acute Assessment and Plan: on BiPAP PRN DNR/DNI at this time The patient has multiple medical issues such as heart failure, cirrhosis, renal failure. Overall prognosis is poor. (5) GI bleed: Code(s): K92.2 - Gastrointestinal hemorrhage, unspecified Status: Acute Assessment and Plan: Gastroenterology recommendations noted complicated by previous anticoagulation and new finding of liver cirrhosis PRBC transfusion per protocol Hemoglobin stable in the 8. (6) Metabolic acidosis: Code(s): E87.2 - Acidosis Status: Acute Assessment and Plan: This is resolved. Latest lactic acid level is normal. (7) Cirrhosis: Code(s): K74.60 - Unspecified cirrhosis of liver Status: Acute Assessment and Plan: as noted by admission imaging hepatitis B surface antibody and C antibody are negative. Liver enzymes are mildly high but stable. Gastroenterology following Subjective Date/time seen: 10/01/20 16:23 Interval history: patient is off the BiPAP machine and is on nasal cannula although he has pulled it out of his nose. He is not short of breath. His O2 sats are 99%. He is calm and conversive. He feels okay. Review of Systems Cardiovascular: Cardiovascular: Reports no additional cardiovascular complaints Respiratory: Respiratory: Reports no additional respiratory complaints Gastrointestinal: Gastrointestinal: Reports no additional gastrointestinal complaints Genitourinary: Genitourinary: Reports no additional male genitourinary complaints Exam Narrative: Exam Narrative: General: Elderly male On BiPAP mask. Heart: normal S1 and S2; no rub Lungs: coarse and decreased at bases Abdomen: soft, nontender, nondistended, positive bowel sounds Extremities: 1+ presacral edema Skin: no rash Or subcu nodules Objective Data Vital Signs Vital Signs: Vital Signs - 24 hr 09/30/20 17:13 09/30/20 18:00 09/30/20 20:00 Temperature 36.4 C 36.6 C Pulse Rate 55 L 56 L Respiratory Rate 12 13 Blood Pressure 100/49 L 108/58 L 116/53 L Pulse Oximetry 99 97 09/30/20 21:48 09/30/20 21:55 09/30/20 22:00 Temperature Pulse Rate 56 L 56 L 59 L Respiratory Rate 15 12 13 Blood Pressure 115/63 Pulse Oximetry 96 100 10/01/20 00:00 10/01/20 02:00 10/01/20 02:30 Temperature 36.6 C Pulse Rate 60 57 L 60 Respiratory Rate 13 12 Blood Pressure 104/67 110/49 L 125/62 Pulse Oximetry 100 100 10/01/20 03:15 10/01/20 03:25 10/01/20 04:00 Temperature 36.5 C Pulse Rate 67 54 L 59 L Respiratory Rate 14 15 14 Blood Pressure 94/57 L Pulse Oximetry 100 10/01/20 06:00 10/01/20 08:00 10/01/20 08:38 Temperature 36.5 C 36.4 C Pul
[2020-10-01 18:23] LABS: Glucose Point of Care 149 (65-105)
--- NOTE | 2020-10-01 19:30 | PM.IMPN ---
Progress Note: A&P Assessment and Plan (1) Shock: Code(s): R57.9 - Shock, unspecified Status: Acute Assessment and Plan: Hypovolemic versus septic shock. Cardiogenic shock is a consideration. EMR shows that he is typically bradycardic in the 50s. Despite aggressive hydration in ED he remained hypotensive, now on norepinephrine and vasopressin. MAP goal of > 65. Lactic acid continues to be elevated around 3.0. No obvious source of underlying infection though urinalysis is still pending. Broad-spectrum antibiotics including vancomycin and ceftriaxone. Blood cultures have been obtained and are pending. 09/30/20 14:25 09/28 patient 85-year-old male with history coronary artery disease status post CABG, systolic congestive heart failure, hypertension hyperlipidemia, atrial fibrillation for which he is taking Eliquis patient was brought to emergency department with generalized weakness he was found to be hypotensive 67/40 and profile anemia with hemoglobin of 5.3 and history rectal bleeding, emergency department patient was started on IV fluid and he recent 3 units of pack RBC however his blood pressure not improving and now on Levophed and vasopressin, CT scan of the abdomen showed liver cirrhosis, hepatitis B and C are negative, patient is given Kcentra to reverse effect of Eliquis, patient is currently on BiPAP unable to provide any review of symptoms he daughter is present in the room, patient is seen singing waiter or waitress and further recommendation to follow. 09/28 today patient is off BiPAP on nasal cannula however his too weak to provide any review of symptom, he is on vesopressin and Levophed his blood pressure is improving, after receiving transfusion patient hemoglobin is stable, patient Eliquis and aspirin on hold and Eliquis was reversed, patient is seen by GI recommending EGD and colonoscopy to further evaluate source of bleeding pending consent from the family, patient with liver cirrhosis however hepatitis-B and C are negative, family is contemplating comfort care will continue to monitor and further recommendation to follow. 09/29 today patient is on BiPAP unable to provide review of symptom, patient remains on Levophed and is weaned off Odilon-synephrine and vasopressin he remains clinically stable and singing waiter or waitress has started wean him off stress dose steroids, patient hemoglobin is stable was seen by GI recommending EGD and colonoscopy to further evaluate pending family consent, patient was on Eliquis is on hold for anemia, patient with liver cirrhosis etiology uncertain hepatitis B and C are negative, CT scan of the abdomen showed liver cirrhosis but no masses, he remains clinically stable his mentation is stable 09/30 patient remains clinically stable but somnolent unable to provide any review of systems, patient with profound anemia after arrival patient was given transfusion and hemoglobin remains stable was seen by GI recommending EGD pending family consent. Patient seen in singing waiter or waitress, nephrology, and GI and appreciate 10/01 pt doing ok off of cont BiPAP, more alert and interactive then previous day, Hgb now >8 plts, >55k , pressor for BP improvement, nephro following for renal fxn cr 2.3-> 1.9 improving pt is DNR/DNI per family (2) Pancytopenia: Code(s): D61.818 - Other pancytopenia Status: Acute Assessment and Plan: Due to GI loss (dark colored stool was Hemoccult positive in the ED). Cannot rule out bone marrow suppression or dyscrasia. transfused to a stable hemoglobin. Platelets currently at 51 -> 79 (3) Acute kidney injury: Code(s): N17.9 - Acute kidney failure, unspecified Status: Acute Assessment and Plan: Secondary to hypoperfusion due to hypovolemia and hypotension. Cannot rule out ATN from underlying sepsis versus other. Alejandro catheter has been inserted. Oliguric with minimal output. .Nephrology consulted and following Continue to monitor strict I/O. Avoid nephrotoxi
[2020-10-01] MEDS: INSULIN ASPART (*BKC) 100 UNITS/ML SUB-Q (23:42)
[2020-10-01 23:46] LABS: Glucose Point of Care 242 (65-105)
[2020-10-02] VITALS (34 sets, daily range): BP systolic 86–150; BP diastolic 49–71; PULSE 50–96; RESP 10–20; TEMP 34.6–36.3; O2SAT 91–100
[2020-10-02] MEDS: ALBUTEROL SULFATE NEB 2.5 MG/0.5 ML INH INHALATION ×4 (01:17→20:51)
[2020-10-02 04:47] LABS: Alveolar/Arterial O2 Gradient 39.2 mmHg; Base Excess ABG 8.4 mEq/l (+/-2.0); Carboxyhemoglobin 0.3 % THb (0-2.0); Fractional Inspired Oxygen 28 %; HCO3 ABG 35.8 mEq/l (22.0-26.0); Methemoglobin ABG 0.3 %THb (0-1.5); Oxygen Content ABG 12.4 %vol (16.0-22.0); Oxygen Saturation ABG 94.6 % (95.0-100.0); Oxyhemoglobin 93.7 % THb (90.0-100.0); PO2 ABG 79.5 mmHg (80.0-100.0); PO2 FiO2 Ratio Arterial Blood 2.84 %; Reduced Hemoglobin 5.7 %THb (0-5.0); Total Hemoglobin 9.3 g/dL (12.0-18.0); pH ABG 7.336 (7.350-7.450)
[2020-10-02 04:48] LABS: Device NASAL CANNULA; Modified Allen's Test Pass; PCO2 ABG 68.6 mmHg (35.0-45.0); Site Drawn RIGHT RADIAL
[2020-10-02] MEDS: CENTRAL LINE FLUSH 10 ML IV PUSH ×2 (05:25→15:06)
[2020-10-02] MEDS: HYDROCORTISONE SODIUM SUCCINATE 100 MG/2 ML VIAL 50 MG IV PUSH (05:25)
[2020-10-02 06:18] LABS: INR 1.2; Prothrombin Time 15.6 Seconds (11.1-14.7)
[2020-10-02 06:20] LABS: Glucose Point of Care 200 (65-105)
[2020-10-02 06:21] LABS: Alanine Aminotransferase 91 U/L (4-50); Albumin Level 3.3 g/dL (3.5-5.1); Alkaline Phosphatase 43 U/L (38-126); Anion Gap 2 mmol/L (8-16); Aspartate Amino Transferase 71 U/L (17-59); Bilirubin,Total 0.8 mg/dL (0.2-1.3); Blood Urea Nitrogen 98 mg/dL (9-20); Calcium 8.6 mg/dL (8.4-10.2); Carbon Dioxide 39 mmol/L (22-30); Chloride 104 mmol/L (98-107); Estimated CRCL calculation 32 ml/min; Estimated Glomerular Filt Rate 38; Glucose 204 mg/dL (75-110); Magnesium 2.3 mg/dL (1.6-2.3); Phosphorus 3.2 mg/dL (2.5-4.5); Potassium 3.8 mmol/L (3.4-5.0); Sodium 145 mmol/L (137-145)
[2020-10-02 06:24] LABS: Hematocrit 28.7 % (42.0-52.0); Hemoglobin 8.7 g/dL (14.0-18.0); Mean Corpuscular HGB Conc 30.3 g/dl (32-36); Mean Corpuscular Hemoglobin 28.4 pg (26-34); Mean Corpuscular Volume 93.8 fl (80-100); Mean Platelet Volume 11.3 fl (7.4-10.4); Platelet Count Result 79 k/mm3 (150-375); Red Blood Count 3.06 M/mm3 (4.6-6.20); Red Cell Distribution Width 17.3 % (11.5-14.5); White Blood Count 6.3 K/mm3 (4.5-10.0)
--- NOTE | 2020-10-02 06:53 | PC.NURSE ---
Pt. found trying to pull out new peripheral IV site.
--- NOTE | 2020-10-02 07:22 | P.PNNP_ITS ---
Progress Note: A&P Assessment and Plan (1) Acute kidney injury: Code(s): N17.9 - Acute kidney failure, unspecified Status: Acute Assessment and Plan: * due to ATN from: - hemodynamic instability/shock - pre-renal factors - concurrent use of ARB and diuretics prior to admission - severe anemia * urine output is still doing well. He made 1700ml yesterday without diuretics. * Pressors are off since yesterday morning. * His BUN and creatinine have improved. * Will continue off diuretics for now, specially with the low blood pressure. If blood pressure rises more during the day consider another dose of diuretics. (2) Stage 3a chronic kidney disease: Code(s): N18.31 - Chronic kidney disease, stage 3a Status: Chronic Assessment and Plan: * baseline creatinine ~ 0.9 - 1.2mg/dl * likely due to hypertension, diabetes, vascular disease, and age-related change (3) Shock: Code(s): R57.9 - Shock, unspecified Status: Acute Assessment and Plan: * Improved (4) Acute respiratory failure: Code(s): J96.00 - Acute respiratory failure, unspecified whether with hypoxia or hypercapnia Status: Acute Assessment and Plan: * on BiPAP PRN * DNR/DNI at this time * The patient has multiple medical issues such as heart failure, cirrhosis, renal failure. * Overall prognosis is poor. (5) GI bleed: Code(s): K92.2 - Gastrointestinal hemorrhage, unspecified Status: Acute Assessment and Plan: * Gastroenterology recommendations noted * complicated by previous anticoagulation and new finding of liver cirrhosis * PRBC transfusion per protocol * Hemoglobin stable in the 8s. (6) Metabolic acidosis: Code(s): E87.2 - Acidosis Status: Acute Assessment and Plan: * This is resolved. * Latest lactic acid level is normal. (7) Cirrhosis: Code(s): K74.60 - Unspecified cirrhosis of liver Status: Acute Assessment and Plan: * as noted by admission imaging * hepatitis B surface antibody and C antibody are negative. * Liver enzymes are mildly high but stable. * Gastroenterology following Subjective Date/time seen: 10/02/20 07:22 Interval history: patient is off the BiPAP machine He became confused overnight and started pulling at IV is, EKG leads, and would not keep his BiPAP machine on. His blood pressure is currently a bit soft with a systolic of 90 He says he is not short of breath. Exam Narrative: Exam Narrative: General: Elderly male On BiPAP mask. Heart: normal S1 and S2; no rub Lungs: Decreased breath sounds at the bases Abdomen: soft, nontender, nondistended, positive bowel sounds Extremities: 1+ presacral edema no cyanosis Skin: no rash Or subcu nodules Objective Data Vital Signs Vital Signs: Vital Signs - 24 hr 10/01/20 08:00 10/01/20 08:38 10/01/20 08:39 Temperature 36.4 C Pulse Rate 58 L 59 L Respiratory Rate 15 14 Blood Pressure 99/55 L Pulse Oximetry 98 99 10/01/20 08:49 10/01/20 09:50 10/01/20 10:00 Temperature 36.4 C L Pulse Rate 60 62 58 L Respiratory Rate 15 25 H 12 Blood Pressure 109/57 L 107/48 L Pulse Oximetry 100 100 10/01/20 12:00 0
--- NOTE | 2020-10-02 07:22 | PM.PNNEP ---
Progress Note: A&P Assessment and Plan (1) Acute kidney injury: Code(s): N17.9 - Acute kidney failure, unspecified Status: Acute Assessment and Plan: due to ATN from: - hemodynamic instability/shock - pre-renal factors - concurrent use of ARB and diuretics prior to admission - severe anemia urine output is still doing well. He made 1700ml yesterday without diuretics. Pressors are off since yesterday morning. His BUN and creatinine have improved. Will continue off diuretics for now, specially with the low blood pressure. If blood pressure rises more during the day consider another dose of diuretics. (2) Stage 3a chronic kidney disease: Code(s): N18.31 - Chronic kidney disease, stage 3a Status: Chronic Assessment and Plan: baseline creatinine ~ 0.9 - 1.2mg/dl likely due to hypertension, diabetes, vascular disease, and age-related change (3) Shock: Code(s): R57.9 - Shock, unspecified Status: Acute Assessment and Plan: Improved (4) Acute respiratory failure: Code(s): J96.00 - Acute respiratory failure, unspecified whether with hypoxia or hypercapnia Status: Acute Assessment and Plan: on BiPAP PRN DNR/DNI at this time The patient has multiple medical issues such as heart failure, cirrhosis, renal failure. Overall prognosis is poor. (5) GI bleed: Code(s): K92.2 - Gastrointestinal hemorrhage, unspecified Status: Acute Assessment and Plan: Gastroenterology recommendations noted complicated by previous anticoagulation and new finding of liver cirrhosis PRBC transfusion per protocol Hemoglobin stable in the 8s. (6) Metabolic acidosis: Code(s): E87.2 - Acidosis Status: Acute Assessment and Plan: This is resolved. Latest lactic acid level is normal. (7) Cirrhosis: Code(s): K74.60 - Unspecified cirrhosis of liver Status: Acute Assessment and Plan: as noted by admission imaging hepatitis B surface antibody and C antibody are negative. Liver enzymes are mildly high but stable. Gastroenterology following Subjective Date/time seen: 10/02/20 07:22 Interval history: patient is off the BiPAP machine He became confused overnight and started pulling at IV is, EKG leads, and would not keep his BiPAP machine on. His blood pressure is currently a bit soft with a systolic of 90 He says he is not short of breath. Exam Narrative: Exam Narrative: General: Elderly male On BiPAP mask. Heart: normal S1 and S2; no rub Lungs: Decreased breath sounds at the bases Abdomen: soft, nontender, nondistended, positive bowel sounds Extremities: 1+ presacral edema no cyanosis Skin: no rash Or subcu nodules Objective Data Vital Signs Vital Signs: Vital Signs - 24 hr 10/01/20 08:00 10/01/20 08:38 10/01/20 08:39 Temperature 36.4 C Pulse Rate 58 L 59 L Respiratory Rate 15 14 Blood Pressure 99/55 L Pulse Oximetry 98 99 10/01/20 08:49 10/01/20 09:50 10/01/20 10:00 Temperature 36.4 C L Pulse Rate 60 62 58 L Respiratory Rate 15 25 H 12 Blood Pressure 109/57 L 107/48 L Pulse Oximetry 100 100 10/01/20 12:00 10/01/20 14:00 10/01/20 14:14 Temperature 36.2 C L Pulse Rate 59 L 68 50 L Respiratory Rate 16 24 H 25 H Blood Pressure 105/62 93/46 L 89/49 L Pulse Oximetry 99 99 93 10/01/20 14:24 10/01/20 14:34 10/01/20 15:59 Temperature Pulse Rate 55 L 55 L 59 L Respiratory Rate 14 16 18 Blood Pressure 95/52 L 109/51 L Pulse Oximetry 91 99 10/01/20 16:00 10/01/20 18:00 10/01/20 19:44 Temperature Pulse Rate 56 L 58 L 64 Respiratory Rate 16 14 Blood Pressure Pulse Oximetry 100 100 10/01/20 19:52 10/01/20 20:00 10/01/20 21:18 Temperature 36.1 C L Pulse Rate 56 L 60 55 L Respiratory Rate 14 13 16 Blood Pressure 111/49 L Pulse O
--- NOTE | 2020-10-02 07:32 | WPDANESPN ---
Anes - Prog Note Post-Op Date/Time: 10/02/20 07:32 Cardiovascular status: normal Respiratory status: normal Airway patency: baseline Mental status: baseline Post-Op hydration status: normal Vital Signs: Last Vital Signs Temp 36.0 C L 10/02/20 06:00 Pulse 83 10/02/20 06:00 Resp 15 10/02/20 06:00 BP 90/51 L 10/02/20 06:00 Pulse Ox 100 10/02/20 06:00 Pain Score (VAS): 0 I/O: Intake & Output 10/01/20 10/01/20 10/02/20 15:59 23:59 07:59 Intake Total 0 797 200 Output Total 400 650 650 Balance -400 147 -450 Laboratory Tests 10/02/20 05:59 10/02/20 05:59 10/01/20 10/01/20 10/01/20 12:00 14:28 18:13 WBC RBC Hgb Hct MCV MCH MCHC RDW Plt Count MPV PT INR Puncture Site ABG pH ABG pCO2 ABG pO2 ABG PO2/FiO2 Ratio ABG HCO3 ABG O2 Saturation ABG O2 Content ABG Base Excess A-a Gradient Oxyhemoglobin Carboxyhemoglobin Methemoglobin Reduced Hemoglobin Total Hemoglobin O2 Delivery Device O2 Liters/Min FiO2 Sodium Potassium Chloride Carbon Dioxide Anion Gap BUN Creatinine Estim Creat Clear Calc Estimated GFR Glucose POC Capillary Glucose 132 H 161 H 149 H Calcium Phosphorus Magnesium Total Bilirubin AST ALT Alkaline Phosphatase Total Protein Albumin 10/01/20 10/02/20 10/02/20 23:40 04:30 05:59 WBC RBC Hgb Hct MCV MCH MCHC RDW Plt Count MPV PT 15.6 H INR 1.2 Puncture Site Right radial ABG pH 7.336 L ABG pCO2 68.6 H* ABG pO2 79.5 L ABG PO2/FiO2 Ratio 2.84 ABG HCO3 35.8 H ABG O2 Saturation 94.6 L ABG O2 Content 12.4 L ABG Base Excess 8.4 A-a Gradient 39.2 Oxyhemoglobin 93.7 Carboxyhemoglobin 0.3 Methemoglobin 0.3 Reduced Hemoglobin 5.7 H Total Hemoglobin 9.3 L O2 Delivery Device Nasal cannula O2 Liters/Min 2.0 FiO2 28 Sodium Potassium Chloride Carbon Dioxide Anion Gap BUN Creatinine Estim Creat Clear Calc Estimated GFR Glucose POC Capillary Glucose 242 H Calcium Phosphorus Magnesium Total Bilirubin AST ALT Alkaline Phosphatase Total Protein Albumin 10/02/20 10/02/20 10/02/20 05:59 05:59 06:01 WBC 6.3 RBC 3.06 L Hgb 8.7 L Hct 28.7 L MCV 93.8 MCH 28.4 MCHC 30.3 L RDW 17.3 H Plt Count 79 L MPV 11.3 H PT INR Puncture Site ABG pH ABG pCO2 ABG pO2 ABG PO2/FiO2 Ratio ABG HCO3 ABG O2 Saturation ABG O2 Content ABG Base Excess A-a Gradient Oxyhemoglobin Carboxyhemoglobin Methemoglobin Reduced Hemoglobin Total Hemoglobin O2 Delivery Device O2 Liters/Min FiO2 Sodium 145 Potassium 3.8 Chloride 104 Carbon Dioxide 39 H Anion Gap 2 L BUN 98 H Creatinine 1.70 H Estim Creat Clear Calc 32 Estimated GFR 38 L Glucose 204 H POC Capillary Glucose 200 H Calcium 8.6 Phosphorus 3.2 Magnesium 2.3 Total Bilirubin 0.8 AST 71 H ALT 91 H Alkaline Phosphatase 43 Total Protein 7.0 Albumin 3.3 L Post-procedural complaints: none Patient Feedback: Patient satisfied with anesthetic care.
[2020-10-02] MEDS: FUROSEMIDE INJ 40 MG/4 ML VIAL IV PUSH (08:35)
[2020-10-02] MEDS: PANTOPRAZOLE SODIUM IV 40 MG VIAL IV PUSH ×2 (08:35→20:02)
[2020-10-02] MEDS: INSULIN GLARGINE (*BKC) 100 UNITS/ML 10 UNITS SUB-Q (08:35)
[2020-10-02 08:42] LABS: NT Pro B Type Natriuretic Pept 18300 PG/ML (5-100)
[2020-10-02 08:44] LABS: Glucose Point of Care 181 (65-105)
--- NOTE | 2020-10-02 09:36 | WPDINTPN ---
Progress Note: A&P Assessment and Plan (1) Shock: Code(s): R57.9 - Shock, unspecified Status: Acute Assessment and Plan: Hypovolemic versus septic Improved. Off Levophed at this time. Continue to monitor hemodynamics closely. He is mentating well though he is minimally confused. Urine output is improving. DC stress dose steroids Will give a dose of Lasix today (2) GI bleed: Code(s): K92.2 - Gastrointestinal hemorrhage, unspecified Status: Acute Assessment and Plan: Gastroenterology service has been consulted. He underwent EGD yesterday which showed gastritis and no ulcer Continue pantoprazole. off octreotide drip now H&H seems to be stable. No further outgoing bleeding. No hematemesis or hematochezia noted. He has received Kcentra at the time of presentation. Continue to hold Eliquis. Start diet Start DVT prophylaxis Lovenox (3) Cirrhosis: Code(s): K74.60 - Unspecified cirrhosis of liver Status: Acute Assessment and Plan: Abdominal imaging showed cirrhosis with elevated INR and low platelet count. He does not have any known history of hepatitis B and C. Hepatitis-B and C is negative during this admission. Gastroenterology service recommendations appreciated. He is on empiric antibiotic which should cover SBP. He has minimal ascites. (4) Chronic anticoagulation: Code(s): Z79.01 - care home (current) use of anticoagulants Status: Acute Assessment and Plan: Suspect secondary to AFib although patient's daughter states the patient has some sort of thrombotic complication from a procedure done at outside hospital Will try to obtain records Hold Eliquis because of ongoing GI bleed. He was given Kcentra at the time of presentation. (5) Acute kidney injury: Code(s): N17.9 - Acute kidney failure, unspecified Status: Acute Assessment and Plan: Likely ATN Nephrology service recommendations appreciated. Patient has good urine output right now. Continue to monitor renal parameters and electrolytes. Hold Lasix Creatinine and BUN are improving (6) Anemia: Qualifiers: Anemia type: unspecified type Qualified Code(s): D64.9 - Anemia, unspecified Code(s): D64.9 - Anemia, unspecified Status: Acute Assessment and Plan: Likely secondary to acute on chronic blood loss from GI tract. Continue to monitor H&H. PRBC transfusion if indicated. (7) CAD (coronary artery disease): Code(s): I25.10 - Atherosclerotic heart disease of [place] coronary artery without angina pectoris Status: Acute Assessment and Plan: Continue to monitor. Echo is pending. Hold Eliquis, carvedilol, metolazone and Entresto. (8) Pleural effusion: Code(s): J90 - Pleural effusion, not elsewhere classified Status: Acute Assessment and Plan: Patient had ultrasound-guided right thoracentesis 10/01 400 mL fluid was removed He does not seem to be in respiratory distress (9) Acute respiratory failure: Code(s): J96.00 - Acute respiratory failure, unspecified whether with hypoxia or hypercapnia Status: Acute Assessment and Plan: He is DNR DNI. He was offered intubation on the night of presentation for severe acidosis and resultant tachypnea but he refused. Family is agreeable to his wishes. He has hypoxic and hypercarbic respiratory failure but hypercarbia as fairly compensated He has been mostly refusing for BiPAP and at times would use it for 2-3 hours after much persuasion. He did not wear BiPAP last night but wore nasal cannula. I encouraged patient to wear BiPAP at night. Wean supplemental oxygen Added incentive spirometry Up in chair Additional Plan DVT prophylaxis start Lovenox GI prophylaxis with pantoprazole DNR DNI PT OT Subjective Date/time seen: 10/02/20 09:36 Patient did not wear BiPAP overnight except for few h
[2020-10-02] MEDS: INSULIN ASPART (*BKC) 100 UNITS/ML SUB-Q (12:18)
[2020-10-02 12:48] LABS: Glucose Point of Care 301 (65-105)
--- NOTE | 2020-10-02 13:52 | PCSTNOTE ---
Please refer to the Bedside Swallow Evaluation in the EMR. Please note, silent aspiration cannot be ruled out at bedside.
--- NOTE | 2020-10-02 17:14 | WPDGIPROGNO ---
Progress Note: A&P Assessment and Plan (1) GI bleed: Code(s): K92.2 - Gastrointestinal hemorrhage, unspecified Status: Acute Assessment and Plan: resolved, EGD yesterday showed gastritis without active bleeding but in setting of anticoagulation probably was the cause no varices keep holding blood thinner and continue ppi bid diet as tolerated (2) Gastritis: Code(s): K29.70 - Gastritis, unspecified, without bleeding Status: Acute Assessment and Plan: ppi (3) Cirrhosis: Code(s): K74.60 - Unspecified cirrhosis of liver Status: Acute Assessment and Plan: new diagnosis ? 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 Status: Acute Assessment and Plan: given significant bleeding, he won't be a candidate for blood thinners (5) Shock: Code(s): R57.9 - Shock, unspecified Status: Acute Assessment and Plan: resolved (6) Thrombocytopenia: Code(s): D69.6 - Thrombocytopenia, unspecified Status: Acute Assessment and Plan: from liver cirrhosis (7) Acute respiratory failure: Code(s): J96.00 - Acute respiratory failure, unspecified whether with hypoxia or hypercapnia Status: Acute Assessment and Plan: improved (8) Pleural effusion: Code(s): J90 - Pleural effusion, not elsewhere classified Status: Acute Subjective Date/time seen: 10/02/20 17:14 Interval history: mentation is better, no more bleeding, off pressors Review of Systems Review of Systems: All systems reviewed & are unremarkable except as noted in HPI and below Exam Const: General: no acute distress Other: frail, awake HENMT: General nose exam: Normal nares present Eyes: General: appearance normal, both eyes and all related structures Neck: Neck: supple Resp: Auscultation: diminished lung sounds Cardio: Rate: regular rate GI: GI Palp: Yes Soft to palpation, No Tenderness to palpation present (GI) and No Guarding due to palpation present (GI) Auscultation: normal bowel sounds Skin: General skin exam: no erythema Neuro: Speech: normal speech Other: more alert today Extrem: General: pedal edema Psych: Speech and movement: Clear speech present Objective Data Vital Signs Vital Signs: Vital Signs - 24 hr 10/01/20 18:00 10/01/20 19:44 10/01/20 19:52 Temperature Pulse Rate 58 L 64 56 L Respiratory Rate 14 14 Blood Pressure Pulse Oximetry 100 10/01/20 20:00 10/01/20 21:18 10/01/20 22:00 Temperature 97.0 F L Pulse Rate 60 55 L 51 L Respiratory Rate 13 16 15 Blood Pressure 111/49 L 108/54 L Pulse Oximetry 100 100 99 10/02/20 00:00 10/02/20 01:17 10/02/20 01:27 Temperature 97.1 F L Pulse Rate 53 L 56 L 54 L Respiratory Rate 12 10 L 16 Blood Pressure 118/53 L Pulse Oximetry 99 10/02/20 02:00 10/02/20 04:00 10/02/20 06:00 Temperature 97.3 F L 97.3 F L 96.8 F L Pulse Rate 53 L 55 L 83 Respiratory Rate 15 15 15 Blood Pressure 110/53 L 107/53 L 90/51 L Pulse Oximetry 97 98 100 10/02/20 07:42 10/02/20 07:53 10/02/20 08:00 Temperature 96.9 F L Pulse Rate 96 54 L 56 L Respiratory Rate 20 20 17 Blood Pressure 113/54 L Pulse Oximetry 100 91 10/02/20 10:00 10/02/20 12:00 10/02/20 13:46 Temperature Pulse Rate 61 54 L 51 L Respiratory Rate 14 18 20 Blood Pressure 86/71 L 150/65 H Pulse Oximetry 91 100 100 10/02/20 13:55 10/02/20 14:00 10/02/20 15:06 Temperature Pulse Rate 51 L 52 L 50 L Respiratory Rate 20 20 14 Blood Pressure 102/61 103/57 L Pulse Oximetry 100 100 10/02/20 15:55 10/02/20 16:00 Temperature Pulse Rate 52 L Respiratory Rate Blood Pressure Pulse Oximetry 100 Intake/Output Intake/Output: Intake & Output 09/29/20 09/30/20 10/01/20 10/02/20 23:59 23:59 23:59 23:59 Intake Total 950 374 797 637 Output T
[2020-10-02 17:50] LABS: Glucose Point of Care 156 (65-105)
--- NOTE | 2020-10-02 18:31 | PM.IMPN ---
Progress Note: A&P Assessment and Plan (1) Congestive heart failure: Code(s): I50.9 - Heart failure, unspecified Status: Acute (2) Chronic anticoagulation: Code(s): Z79.01 - [facility] (current) use of anticoagulants Status: Acute (3) GI bleed: Code(s): K92.2 - Gastrointestinal hemorrhage, unspecified Status: Acute (4) Acute respiratory failure: Code(s): J96.00 - Acute respiratory failure, unspecified whether with hypoxia or hypercapnia Status: Acute (5) Acute hypotension: Code(s): I95.9 - Hypotension, unspecified Status: Acute (6) MINAL (acute kidney injury): Code(s): N17.9 - Acute kidney failure, unspecified Status: Acute (7) Shock: Code(s): R57.9 - Shock, unspecified Status: Acute Additional Plan Patient remains stable in ICU BNP reviewed very elevated Unclear if he will be able tolerate diuresis with low BP defer to impersonator character Ongoing PPI therapy for gastritis with recent GIB GI following Shock with associated MINAL kidneys are currently in recovery Continue respiratory therapy with supplemental oxygen Anticipate transfer to step-down when bed available Time Spent With Patient Time with patient: 25 - 35 minutes Subjective Date/time seen: 10/02/20 13:31 Patient sitting up in chair bedside this morning blood pressure low however map is 75, patient is asymptomatic, case reviewed with impersonator character anticipate transfer to floor soon. Recommendation is for discontinuation of oral anticoagulation therapy unless indication is absolutely more beneficial than of risk given recent GI bleed. Records have been requested from hospitalization that OAC was initiated at. Patient has failed swallow evaluation will need modified diet. Exam Narrative: Exam Narrative: GEN: NAD, AAOx2, cooperative hard of hearing HEENT: NCAT, MMM, EOMI Neck: no JVD Heart: S1S2 RRR Lungs: CTA B/l Abd: soft, NT, ND, bowel sounds normoactive Ext: moves all, no cyanosis, no clubbing, no edema Neuro:moves all extremities equally, cranial nerves intact Psych: mood and affect congruent Objective Data Vital Signs Vital Signs: Vital Signs - 24 hr 10/01/20 19:44 10/01/20 19:52 10/01/20 20:00 Temperature 97.0 F L Pulse Rate 64 56 L 60 Respiratory Rate 14 14 13 Blood Pressure 111/49 L Pulse Oximetry 100 100 10/01/20 21:18 10/01/20 22:00 10/02/20 00:00 Temperature 97.1 F L Pulse Rate 55 L 51 L 53 L Respiratory Rate 16 15 12 Blood Pressure 108/54 L 118/53 L Pulse Oximetry 100 99 99 10/02/20 01:17 10/02/20 01:27 10/02/20 02:00 Temperature 97.3 F L Pulse Rate 56 L 54 L 53 L Respiratory Rate 10 L 16 15 Blood Pressure 110/53 L Pulse Oximetry 97 10/02/20 04:00 10/02/20 06:00 10/02/20 07:42 Temperature 97.3 F L 96.8 F L Pulse Rate 55 L 83 96 Respiratory Rate 15 15 20 Blood Pressure 107/53 L 90/51 L Pulse Oximetry 98 100 100 10/02/20 07:53 10/02/20 08:00 10/02/20 10:00 Temperature 96.9 F L Pulse Rate 54 L 56 L 61 Respiratory Rate 20 17 14 Blood Pressure 113/54 L 86/71 L Pulse Oximetry 91 91 10/02/20 12:00 10/02/20 13:46 10/02/20 13:55 Temperature Pulse Rate 54 L 51 L 51 L Respiratory Rate 18 20 20 Blood Pressure 150/65 H Pulse Oximetry 100 100 10/02/20 14:00 10/02/20 15:06 10/02/20 15:55 Temperature Pulse Rate 52 L 50 L Respiratory Rate 20 14 Blood Pressure 102/61 103/57 L Pulse Oximetry 100 100 100 10/02/20 16:00 10/02/20 18:00 Temperature Pulse Rate 52 L 57 L Respiratory Rate Blood Pressure Pulse Oximetry Intake/Output Intake/Output: Intake & Output 09/29/20 09/30/20 10/01/20 10/02/20 23:59 23:59 23:59 23:59 Intake Total 070 701 330 072 3060 Output Total 6065 4889 0817 1600 Balance -2625 -2551 -1153 -263 Meds/Results Medications: Active Medications Generic Name Dose Route Start Last Admin Trade Name Freq PRN Reason Stop Dose Admin Albuterol 2.5 mg 09/29/20 08:00
[2020-10-02] MEDS: WATER, STERILE FOR INJECTION 10 ML VIAL XX (20:06)
[2020-10-03] VITALS (30 sets, daily range): BP systolic 95–113; BP diastolic 44–57; PULSE 50–72; RESP 14–24; TEMP 35.1–36.3; O2SAT 59–99
[2020-10-03 00:22] LABS: Glucose Point of Care 172 (65-105)
[2020-10-03] MEDS: ALBUTEROL SULFATE NEB 2.5 MG/0.5 ML INH INHALATION ×4 (02:35→20:12)
[2020-10-03 04:58] LABS: Basophils Percent Auto 0.2 % (0.2-1.2); Eosinophils Percent Auto 0.6 % (0-4.4); Hematocrit 28.5 % (42.0-52.0); Hemoglobin 8.6 g/dL (14.0-18.0); Immature Granulocyte Absolute 0.03 K/mm3 (0.00-0.031); Immature Granulocyte Percent A 0.5 % (0-0.5); Lymphocytes Absolute Auto 0.36 K/mm3 (0.9-3.2); Lymphocytes Percent Auto 5.5 % (18.3-44.2); Mean Corpuscular HGB Conc 30.2 g/dl (32-36); Mean Corpuscular Volume 92.8 fl (80-100); Mean Platelet Volume 11.6 fl (7.4-10.4); Monocytes Absolute Auto 0.5 K/mm3 (0.1-0.6); Neutrophils Absolute Auto 5.7 K/mm3 (1.3-6.7); Neutrophils Percent Auto 86.2 % (45.5-73.1); Nucleated Red Blood Cells Perc 0.3 % (0.0-0.2); Platelet Count Result 78 k/mm3 (150-375); Red Blood Count 3.07 M/mm3 (4.6-6.20); White Blood Count 6.6 K/mm3 (4.5-10.0)
[2020-10-03 05:10] LABS: INR 1.2; Prothrombin Time 15.7 Seconds (11.1-14.7)
[2020-10-03 05:14] LABS: Alanine Aminotransferase 68 U/L (4-50); Albumin Level 2.9 g/dL (3.5-5.1); Alkaline Phosphatase 36 U/L (38-126); Anion Gap 5 mmol/L (8-16); Aspartate Amino Transferase 45 U/L (17-59); Bilirubin,Total 0.8 mg/dL (0.2-1.3); Blood Urea Nitrogen 90 mg/dL (9-20); CRP 1.5 mg/dL (<1.0); Calcium 8.3 mg/dL (8.4-10.2); Carbon Dioxide 35 mmol/L (22-30); Chloride 102 mmol/L (98-107); Creatine Kinase < 20 U/L (55-170); Estimated CRCL calculation 41 ml/min; Estimated Glomerular Filt Rate 52; Glucose 141 mg/dL (75-110); Magnesium 2.1 mg/dL (1.6-2.3); Phosphorus 2.4 mg/dL (2.5-4.5); Potassium 3.4 mmol/L (3.4-5.0); Sodium 142 mmol/L (137-145)
[2020-10-03 06:14] LABS: Iron 26 ug/dL (49-181)
[2020-10-03 06:24] LABS: Percent Iron Saturation 8 % (20-50)
[2020-10-03 06:43] LABS: Hepatitis B Surface Antigen Negative (Negative)
[2020-10-03] MEDS: INSULIN GLARGINE (*BKC) 100 UNITS/ML 10 UNITS SUB-Q (09:44)
[2020-10-03] MEDS: PANTOPRAZOLE SODIUM IV 40 MG VIAL IV PUSH ×2 (09:45→21:00)
--- NOTE | 2020-10-03 10:49 | PCPTNOTE ---
Attempted to see patient this morning for PT treatment, stated he was too tired after completing OT treatment, will try back this afternoon.
[2020-10-03 12:09] LABS: Glucose Point of Care 167 (65-105)
[2020-10-03] MEDS: CENTRAL LINE FLUSH 10 ML IV PUSH ×2 (14:07→21:01)
--- NOTE | 2020-10-03 14:14 | PCPTNOTE ---
Attempted to see patient this afternoon for PT treatment, stated he was too tired after completing Speech evaluation, will try to see tomorrow.
--- NOTE | 2020-10-03 14:25 | PCDIET ---
Nutrition Follow-Up Complete: Nutrition Diagnosis: Inadequate oral intake related to GI bleeding as evidenced by NPO x 5 days. Nutrition Goal: Patient to meet estimated nutritional needs. Goal in progress. Patient consumed 100% of dinner meal last night, and RN reports patient did very well with breakfast today. Patient reports tolerating upgraded diet (pureed, 2 gram sodium with mildly thick liquids) and denies need for supplements at this time. [employer] recommendations noted. Last recorded weight is 100.6 kg which is down from last review. Bowel Motility: Last documented BM on 09/27/20. Recommend adding medication(s) to promote BM, if medically appropriate. Labs Reviewed: Hgb (8.6), Hct (28.5), Glu (141), BUN (90), Alb (2.9), Ayala Ca (9.18), PO4 (2.4) Meds Noted: Albuterol, Lantus, Rocephin, Protonix Additional Notes: Friction area to sacrum. Bilateral arms with skin tears. Will continue to monitor with same goal. Nutrition Monitoring and Evaluation: Follow up every 5 days.
[2020-10-03 18:20] LABS: Glucose Point of Care 157 (65-105)
--- NOTE | 2020-10-03 19:39 | PM.IMPN ---
Progress Note: A&P Assessment and Plan (1) Congestive heart failure: Code(s): I50.9 - Heart failure, unspecified Status: Acute Assessment and Plan: Ejection fraction in February 2020 was about 35%. Clinically he is starting to look volume overloaded. Unable to diurese given hypotension. Patient has declined intubation for airway protection and family agrees with DNR status. 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 Eliquis and aspirin are on hold. (3) GI bleed: Code(s): K92.2 - Gastrointestinal hemorrhage, unspecified Status: Acute Assessment and Plan: Dark stool was Hemoccult positive in the emergency department. Protonix Ceftriaxone (underlying cirrhosis). Transfuse hemoglobin no > 8 Dr. Villalba (Gastroenterology) consulted. (4) Acute respiratory failure: Code(s): J96.00 - Acute respiratory failure, unspecified whether with hypoxia or hypercapnia Status: Acute Assessment and Plan: BiPAP p.r.n. (5) Acute hypotension: Code(s): I95.9 - Hypotension, unspecified Status: Acute Assessment and Plan: Persistent but with map greater than 65 and asymptomatic with improved renal function (6) MINAL (acute kidney injury): Code(s): N17.9 - Acute kidney failure, unspecified Status: Acute Assessment and Plan: Resolved (7) Shock: Code(s): R57.9 - Shock, unspecified Status: Acute Assessment and Plan: Hypovolemic versus septic shock. Cardiogenic shock is a consideration. EMR shows that he is typically bradycardic in the 50s. Despite aggressive hydration in ED he remained hypotensive, now on norepinephrine and vasopressin. MAP goal of > 65. Lactic acid continues to be elevated around 3.0. No obvious source of underlying infection though urinalysis is still pending. Broad-spectrum antibiotics including vancomycin and ceftriaxone. Blood cultures have been obtained and are pending. 09/30/20 14:25 09/28 patient 85-year-old male with history coronary artery disease status post CABG, systolic congestive heart failure, hypertension hyperlipidemia, atrial fibrillation for which he is taking Eliquis patient was brought to emergency department with generalized weakness he was found to be hypotensive 67/40 and profile anemia with hemoglobin of 5.3 and history rectal bleeding, emergency department patient was started on IV fluid and he recent 3 units of pack RBC however his blood pressure not improving and now on Levophed and vasopressin, CT scan of the abdomen showed liver cirrhosis, hepatitis B and C are negative, patient is given Kcentra to reverse effect of Eliquis, patient is currently on BiPAP unable to provide any review of symptoms he daughter is present in the room, patient is seen parking lot attendant and further recommendation to follow. 09/28 today patient is off BiPAP on nasal cannula however his too weak to provide any review of symptom, he is on vesopressin and Levophed his blood pressure is improving, after receiving transfusion patient hemoglobin is stable, patient Eliquis and aspirin on hold and Eliquis was reversed, patient is seen by GI recommending EGD and colonoscopy to further evaluate source of bleeding pending consent from the family, patient with liver cirrhosis however hepatitis-B and C are negative, family is contemplating comfort care will continue to monitor and further recommendation to follow. 09/29 today patient is on BiPAP unable to provide review of symptom, patient remains on Levophed and is weaned off Odilon-synephrine and vasopressin he remains clinically stable and parking lot attendant has started wean him off stress dose steroids, patient hemoglobin is stable was seen by GI recommending EGD and colonosc
[2020-10-04] VITALS (18 sets, daily range): BP systolic 106–128; BP diastolic 55–64; PULSE 50–72; RESP 16–24; TEMP 35.5–36.1; O2SAT 92–100
[2020-10-04 00:25] LABS: Glucose Point of Care 138 (65-105)
[2020-10-04] MEDS: CENTRAL LINE FLUSH 10 ML IV PUSH ×2 (05:30→20:52)
[2020-10-04 05:33] LABS: Glucose Point of Care 130 (65-105)
[2020-10-04] MEDS: INSULIN GLARGINE (*BKC) 100 UNITS/ML 10 UNITS SUB-Q (08:30)
[2020-10-04] MEDS: PANTOPRAZOLE SODIUM IV 40 MG VIAL IV PUSH ×2 (08:31→20:51)
[2020-10-04] MEDS: ALBUTEROL SULFATE NEB 2.5 MG/0.5 ML INH INHALATION ×3 (08:41→20:26)
[2020-10-04 11:54] LABS: SARS-CoV-2 RNA PCR Negative
[2020-10-04 12:28] LABS: Glucose Point of Care 106 (65-105)
--- NOTE | 2020-10-04 13:39 | PCPTNOTE ---
Attempted therapy session at 13:20. Pt at first agreed to sit EOB however once SCD, blankets, and bed moved into position to help Pt sit EOB Pt started refusing. Pt the became very combative and swung at therapist and his daughter who was present for session. Therapist then was able to reassure and calm Pt down. Therapist then had RN assist bumping Pt up in bed. Pt was left in bed with alarm on and all covered, Pt was calm and no longer agitated.
--- NOTE | 2020-10-04 14:15 | PM.IMPN ---
Progress Note: A&P Assessment and Plan (1) Congestive heart failure: Code(s): I50.9 - Heart failure, unspecified Status: Acute Assessment and Plan: Ejection fraction in February 2020 was about 35%. Clinically he is starting to look volume overloaded. Unable to diurese given hypotension. Patient has declined intubation for airway protection and family agrees with DNR status. 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 Eliquis and aspirin are on hold. (3) GI bleed: Code(s): K92.2 - Gastrointestinal hemorrhage, unspecified Status: Acute Assessment and Plan: Dark stool was Hemoccult positive in the emergency department. Protonix Ceftriaxone (underlying cirrhosis). Transfuse hemoglobin no > 8 Dr. Villalba (Gastroenterology) consulted. (4) Acute respiratory failure: Code(s): J96.00 - Acute respiratory failure, unspecified whether with hypoxia or hypercapnia Status: Acute Assessment and Plan: BiPAP p.r.n. (5) Acute hypotension: Code(s): I95.9 - Hypotension, unspecified Status: Acute Assessment and Plan: Persistent but with map greater than 65 and asymptomatic with improved renal function (6) MINAL (acute kidney injury): Code(s): N17.9 - Acute kidney failure, unspecified Status: Acute Assessment and Plan: Resolved (7) Shock: Code(s): R57.9 - Shock, unspecified Status: Acute Assessment and Plan: Hypovolemic versus septic shock. Cardiogenic shock is a consideration. EMR shows that he is typically bradycardic in the 50s. Despite aggressive hydration in ED he remained hypotensive, now on norepinephrine and vasopressin. MAP goal of > 65. Lactic acid continues to be elevated around 3.0. No obvious source of underlying infection though urinalysis is still pending. Broad-spectrum antibiotics including vancomycin and ceftriaxone. Blood cultures have been obtained and are pending. 09/30/20 14:25 09/28 patient 85-year-old male with history coronary artery disease status post CABG, systolic congestive heart failure, hypertension hyperlipidemia, atrial fibrillation for which he is taking Eliquis patient was brought to emergency department with generalized weakness he was found to be hypotensive 67/40 and profile anemia with hemoglobin of 5.3 and history rectal bleeding, emergency department patient was started on IV fluid and he recent 3 units of pack RBC however his blood pressure not improving and now on Levophed and vasopressin, CT scan of the abdomen showed liver cirrhosis, hepatitis B and C are negative, patient is given Kcentra to reverse effect of Eliquis, patient is currently on BiPAP unable to provide any review of symptoms he daughter is present in the room, patient is seen mattress and boxsprings supervisor and further recommendation to follow. 09/28 today patient is off BiPAP on nasal cannula however his too weak to provide any review of symptom, he is on vesopressin and Levophed his blood pressure is improving, after receiving transfusion patient hemoglobin is stable, patient Eliquis and aspirin on hold and Eliquis was reversed, patient is seen by GI recommending EGD and colonoscopy to further evaluate source of bleeding pending consent from the family, patient with liver cirrhosis however hepatitis-B and C are negative, family is contemplating comfort care will continue to monitor and further recommendation to follow. 09/29 today patient is on BiPAP unable to provide review of symptom, patient remains on Levophed and is weaned off Odilon-synephrine and vasopressin he remains clinically stable and mattress and boxsprings supervisor has started wean
[2020-10-04 15:20] LABS: Fractional Inspired Oxygen 24 %; HCO3 ABG 34.4 mEq/l (22.0-26.0); Oxygen Content ABG 11.1 %vol (16.0-22.0); Oxyhemoglobin 80.2 % THb (90.0-100.0); PCO2 ABG 58.5 mmHg (35.0-45.0); PO2 FiO2 Ratio Arterial Blood 1.98 %; Total Hemoglobin 9.8 g/dL (12.0-18.0); pH ABG 7.387 (7.350-7.450)
[2020-10-04 15:23] LABS: Oxygen Saturation ABG 81.8 % (95.0-100.0)
[2020-10-04 15:24] LABS: Device NASAL CANNULA; PO2 ABG 47.5 mmHg (80.0-100.0); Site Drawn LEFT BRACHIAL
[2020-10-04 18:37] LABS: Glucose Point of Care 100 (65-105)
--- NOTE | 2020-10-04 18:50 | PCCCNOTE ---
Spoke with daughter, LYNN, at length in ICU conference room. Shared information regarding the role of hospice in the care of her father. Family is currently willing to have an informational meeting with hospice. [facility] contacted and chart faxed. Provided Lynn's phone number and her wish to meet with them tomorrow sometime between noon and 2pm
--- NOTE | 2020-10-04 21:30 | PC.NURSE ---
This patient, Torito Mcleod, was transferred to [ 317] on 10/04/20 at 2130. Personal belongings sent with patient. Report given to [Meghan ALCANTAR ]. Appropriate documentation sent with patient.
--- NOTE | 2020-10-04 21:46 | PC.NURSE ---
This patient, Torito Mcleod, was received from [ ICU] on 10/04/20 at 2148. Patient/family oriented to unit policies and routines
[2020-10-05] VITALS (7 sets, daily range): BP systolic 119–124; BP diastolic 59–66; PULSE 60–81; RESP 18–20; TEMP 36.4–36.6; O2SAT 94–99
[2020-10-05 00:12] LABS: Glucose Point of Care 83 (65-105)
[2020-10-05 06:09] LABS: Basophils Percent Auto 0.1 % (0.2-1.2); Eosinophils Percent Auto 0.3 % (0-4.4); Hematocrit 32.8 % (42.0-52.0); Hemoglobin 9.8 g/dL (14.0-18.0); Immature Granulocyte Absolute 0.05 K/mm3 (0.00-0.031); Immature Granulocyte Percent A 0.5 % (0-0.5); Lymphocytes Absolute Auto 0.61 K/mm3 (0.9-3.2); Lymphocytes Percent Auto 5.6 % (18.3-44.2); Mean Corpuscular HGB Conc 29.9 g/dl (32-36); Mean Corpuscular Hemoglobin 27.9 pg (26-34); Mean Corpuscular Volume 93.4 fl (80-100); Mean Platelet Volume 11.1 fl (7.4-10.4); Monocytes Absolute Auto 0.8 K/mm3 (0.1-0.6); Monocytes Percent Auto 7.6 % (2.6-8.5); Neutrophils Absolute Auto 9.4 K/mm3 (1.3-6.7); Neutrophils Percent Auto 85.9 % (45.5-73.1); Nucleated Red Blood Cells Perc 0.2 % (0.0-0.2); Platelet Count Result 95 k/mm3 (150-375); Red Blood Count 3.51 M/mm3 (4.6-6.20); Red Cell Distribution Width 17.4 % (11.5-14.5); White Blood Count 10.9 K/mm3 (4.5-10.0)
[2020-10-05] MEDS: DEXTROSE 50% 25 GM/50 ML SYRINGE IV PUSH (06:09)
[2020-10-05 06:28] LABS: Albumin Level 3.2 g/dL (3.5-5.1); Blood Urea Nitrogen 53 mg/dL (9-20); Calcium 8.6 mg/dL (8.4-10.2); Carbon Dioxide > 40 mmol/L (22-30); Chloride 106 mmol/L (98-107); Estimated CRCL calculation 60 ml/min; Estimated Glomerular Filt Rate > 60; Glucose 68 mg/dL (75-110); Phosphorus 2.4 mg/dL (2.5-4.5); Potassium 3.4 mmol/L (3.4-5.0); Sodium 149 mmol/L (137-145)
[2020-10-05 06:33] LABS: Glucose Point of Care 128 (65-105)
[2020-10-05 06:33] LABS: Glucose Point of Care 59 (65-105)
[2020-10-05 06:48] LABS: Anisocytosis 1+ (NORMAL); Hypochromasia 1+ (NORMAL); Platelet Estimate Decreased (Adequate)
[2020-10-05] MEDS: ALBUTEROL SULFATE NEB 2.5 MG/0.5 ML INH INHALATION ×3 (08:08→20:00)
[2020-10-05] MEDS: PANTOPRAZOLE SODIUM IV 40 MG VIAL IV PUSH (09:00)
--- NOTE | 2020-10-05 09:30 | P.PNNP_ITS ---
Progress Note: A&P Assessment and Plan (1) Acute kidney injury: Code(s): N17.9 - Acute kidney failure, unspecified Status: Acute Assessment and Plan: * due to ATN from: - hemodynamic instability/shock - pre-renal factors - concurrent use of ARB and diuretics prior to admission - severe anemia * urine output is still doing well. He made 1800ml yesterday without diuretics. * His BUN and creatinine continue to improve. * His sodium level is a little bit high. I talked with the nurses to encourage p.o. intake of fluids. * She mentions that there is some discussion about hospice. (2) Stage 3a chronic kidney disease: Code(s): N18.31 - Chronic kidney disease, stage 3a Status: Chronic Assessment and Plan: * baseline creatinine ~ 0.9 - 1.2mg/dl * likely due to hypertension, diabetes, vascular disease, and age-related change (3) Shock: Code(s): R57.9 - Shock, unspecified Status: Acute Assessment and Plan: * Improved (4) Acute respiratory failure: Code(s): J96.00 - Acute respiratory failure, unspecified whether with hypoxia or hypercapnia Status: Acute Assessment and Plan: * on BiPAP PRN * DNR/DNI currently * The patient has multiple medical issues such as heart failure, cirrhosis, renal failure. * The latter has improved, however still the overall prognosis is poor. (5) GI bleed: Code(s): K92.2 - Gastrointestinal hemorrhage, unspecified Status: Acute Assessment and Plan: * Gastroenterology recommendations noted * complicated by previous anticoagulation and new finding of liver cirrhosis * PRBC transfusion per protocol * Hemoglobin has risen to 9.8 (6) Metabolic acidosis: Code(s): E87.2 - Acidosis Status: Acute Assessment and Plan: * This is resolved. * Latest lactic acid level is normal. (7) Cirrhosis: Code(s): K74.60 - Unspecified cirrhosis of liver Status: Acute Assessment and Plan: * as noted by admission imaging * hepatitis B surface antibody and C antibody are negative. * Liver enzymes are mildly high but stable. * Gastroenterology following Subjective Date/time seen: 10/05/20 09:30 Interval history: patient is off the BiPAP machine Out of the ICU. He denies shortness of breath. He is a bit sleepy. Review of Systems Review of Systems: ROS unobtainable: Yes unobtainable due to medical condition Exam Narrative: Exam Narrative: General: Elderly male On BiPAP mask. Heart: normal S1 and S2; no rub or gallop Lungs: Decreased breath sounds at the bases Abdomen: soft, nontender, nondistended, positive bowel sounds Extremities: 1+ presacral edema Skin: no rash Or subcu nodules Objective Data Vital Signs Vital Signs: Vital Signs - 24 hr 10/04/20 10:00 10/04/20 12:00 10/04/20 13:48 Temperature 35.7 C L Pulse Rate 60 65 62 Respiratory Rate 24 H 16 Blood Pressure 112/63 Pulse Oximetry 95 10/04/20 13:54 10/04/20 16:00 10/04/20 19:57 Temperature 36.0 C L Pulse Rate 65 66 Respiratory Rate 16 23 H Blood Pressure 122/59 L Pulse Oximetry 95 93 10/04/20 20:00 10/04/20 20:29 10/04/20 20
--- NOTE | 2020-10-05 09:30 | PM.PNNEP ---
Progress Note: A&P Assessment and Plan (1) Acute kidney injury: Code(s): N17.9 - Acute kidney failure, unspecified Status: Acute Assessment and Plan: due to ATN from: - hemodynamic instability/shock - pre-renal factors - concurrent use of ARB and diuretics prior to admission - severe anemia urine output is still doing well. He made 1800ml yesterday without diuretics. His BUN and creatinine continue to improve. His sodium level is a little bit high. I talked with the nurses to encourage p.o. intake of fluids. She mentions that there is some discussion about hospice. (2) Stage 3a chronic kidney disease: Code(s): N18.31 - Chronic kidney disease, stage 3a Status: Chronic Assessment and Plan: baseline creatinine ~ 0.9 - 1.2mg/dl likely due to hypertension, diabetes, vascular disease, and age-related change (3) Shock: Code(s): R57.9 - Shock, unspecified Status: Acute Assessment and Plan: Improved (4) Acute respiratory failure: Code(s): J96.00 - Acute respiratory failure, unspecified whether with hypoxia or hypercapnia Status: Acute Assessment and Plan: on BiPAP PRN DNR/DNI currently The patient has multiple medical issues such as heart failure, cirrhosis, renal failure. The latter has improved, however still the overall prognosis is poor. (5) GI bleed: Code(s): K92.2 - Gastrointestinal hemorrhage, unspecified Status: Acute Assessment and Plan: Gastroenterology recommendations noted complicated by previous anticoagulation and new finding of liver cirrhosis PRBC transfusion per protocol Hemoglobin has risen to 9.8 (6) Metabolic acidosis: Code(s): E87.2 - Acidosis Status: Acute Assessment and Plan: This is resolved. Latest lactic acid level is normal. (7) Cirrhosis: Code(s): K74.60 - Unspecified cirrhosis of liver Status: Acute Assessment and Plan: as noted by admission imaging hepatitis B surface antibody and C antibody are negative. Liver enzymes are mildly high but stable. Gastroenterology following Subjective Date/time seen: 10/05/20 09:30 Interval history: patient is off the BiPAP machine Out of the ICU. He denies shortness of breath. He is a bit sleepy. Review of Systems Review of Systems: ROS unobtainable: Yes unobtainable due to medical condition Exam Narrative: Exam Narrative: General: Elderly male On BiPAP mask. Heart: normal S1 and S2; no rub or gallop Lungs: Decreased breath sounds at the bases Abdomen: soft, nontender, nondistended, positive bowel sounds Extremities: 1+ presacral edema Skin: no rash Or subcu nodules Objective Data Vital Signs Vital Signs: Vital Signs - 24 hr 10/04/20 10:00 10/04/20 12:00 10/04/20 13:48 Temperature 35.7 C L Pulse Rate 60 65 62 Respiratory Rate 24 H 16 Blood Pressure 112/63 Pulse Oximetry 95 10/04/20 13:54 10/04/20 16:00 10/04/20 19:57 Temperature 36.0 C L Pulse Rate 65 66 Respiratory Rate 16 23 H Blood Pressure 122/59 L Pulse Oximetry 95 93 10/04/20 20:00 10/04/20 20:29 10/04/20 20:30 Temperature 36.1 C L Pulse Rate 65 72 68 Respiratory Rate 21 H 18 18 Blood Pressure 127/59 L Pulse Oximetry 92 96 10/04/20 21:55 10/05/20 06:00 10/05/20 08:08 Temperature 35.7 C L 36.6 C Pulse Rate 64 60 73 Respiratory Rate 16 20 18 Blood Pressure 106/57 L 124/66 Pulse Oximetry 100 94 99 Intake/Output Intake/Output: Intake & Output 10/02/20 10/03/20 10/04/20 10/05/20 23:59 23:59 23:59 23:59 Intake Total 1387 740 587 0 Output Total 1600 1300 1750 1000 Balance -213 -560 -1163 -1000 Meds/Results Medications: Active Medications Generic Name Dose Route Start Last Admin Trade Name Freq PRN Reason Stop Dose Admin Albuterol 2.5 mg 09/29/20 08:00 09/25
[2020-10-05 09:39] LABS: Glucose Point of Care 89 (65-105)
--- NOTE | 2020-10-05 11:30 | PCPTNOTE ---
Patient refused treatment this session. Patient states I am done! PT will continue to follow per plan of care.
[2020-10-05 12:33] LABS: Glucose Point of Care 87 (65-105)
--- NOTE | 2020-10-05 13:37 | PM.IMPN ---
Progress Note: A&P Assessment and Plan (1) Congestive heart failure: Code(s): I50.9 - Heart failure, unspecified Status: Acute Assessment and Plan: Ejection fraction in February 2020 was about 35%. Clinically he is starting to look volume overloaded. Unable to diurese given hypotension. Patient has declined intubation for airway protection and family agrees with DNR status. 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 Eliquis and aspirin are on hold. (3) GI bleed: Code(s): K92.2 - Gastrointestinal hemorrhage, unspecified Status: Acute Assessment and Plan: Dark stool was Hemoccult positive in the emergency department. Protonix Ceftriaxone (underlying cirrhosis). Transfuse hemoglobin no > 8 Dr. Villalba (Gastroenterology) consulted. (4) Acute respiratory failure: Code(s): J96.00 - Acute respiratory failure, unspecified whether with hypoxia or hypercapnia Status: Acute Assessment and Plan: BiPAP p.r.n. (5) Acute hypotension: Code(s): I95.9 - Hypotension, unspecified Status: Acute Assessment and Plan: Persistent but with map greater than 65 and asymptomatic with improved renal function (6) MINAL (acute kidney injury): Code(s): N17.9 - Acute kidney failure, unspecified Status: Acute Assessment and Plan: Resolved (7) Shock: Code(s): R57.9 - Shock, unspecified Status: Acute Assessment and Plan: Hypovolemic versus septic shock. Cardiogenic shock is a consideration. EMR shows that he is typically bradycardic in the 50s. Despite aggressive hydration in ED he remained hypotensive, now on norepinephrine and vasopressin. MAP goal of > 65. Lactic acid continues to be elevated around 3.0. No obvious source of underlying infection though urinalysis is still pending. Broad-spectrum antibiotics including vancomycin and ceftriaxone. Blood cultures have been obtained and are pending. 09/30/20 14:25 09/28 patient 85-year-old male with history coronary artery disease status post CABG, systolic congestive heart failure, hypertension hyperlipidemia, atrial fibrillation for which he is taking Eliquis patient was brought to emergency department with generalized weakness he was found to be hypotensive 67/40 and profile anemia with hemoglobin of 5.3 and history rectal bleeding, emergency department patient was started on IV fluid and he recent 3 units of pack RBC however his blood pressure not improving and now on Levophed and vasopressin, CT scan of the abdomen showed liver cirrhosis, hepatitis B and C are negative, patient is given Kcentra to reverse effect of Eliquis, patient is currently on BiPAP unable to provide any review of symptoms he daughter is present in the room, patient is seen supervisor machine workers and further recommendation to follow. 09/28 today patient is off BiPAP on nasal cannula however his too weak to provide any review of symptom, he is on vesopressin and Levophed his blood pressure is improving, after receiving transfusion patient hemoglobin is stable, patient Eliquis and aspirin on hold and Eliquis was reversed, patient is seen by GI recommending EGD and colonoscopy to further evaluate source of bleeding pending consent from the family, patient with liver cirrhosis however hepatitis-B and C are negative, family is contemplating comfort care will continue to monitor and further recommendation to follow. 09/29 today patient is on BiPAP unable to provide review of symptom, patient remains on Levophed and is weaned off Odilon-synephrine and vasopressin he remains clinically stable and supervisor machine workers has started wean
[2020-10-05 13:57] LABS: Alveolar/Arterial O2 Gradient 51.2 mmHg; Base Excess ABG 9.1 mEq/l (+/-2.0); Fractional Inspired Oxygen 26 %; HCO3 ABG 36.3 mEq/l (22.0-26.0); Oxygen Content ABG 13.7 %vol (16.0-22.0); Oxygen Saturation ABG 88.2 % (95.0-100.0); Oxyhemoglobin 86.3 % THb (90.0-100.0); PO2 ABG 57.6 mmHg (80.0-100.0); PO2 FiO2 Ratio Arterial Blood 2.22 %; Total Hemoglobin 11.3 g/dL (12.0-18.0); pH ABG 7.368 (7.350-7.450)
[2020-10-05 14:02] LABS: PCO2 ABG 64.6 mmHg (35.0-45.0)
[2020-10-05 14:03] LABS: Device NASAL CANNULA; Modified Allen's Test Pass; Site Drawn LEFT RADIAL
--- NOTE | 2020-10-05 14:17 | PCOTNOTE ---
Attempted to see patient this pm, however patient refused. Upon entering, patient was sleeping. Pt kept eyes closed, however agreed to participate in ADLs. After set up, patient declined stating, No! resisting assist and activity at this time.
[2020-10-05 16:55] LABS: Glucose Point of Care 90 (65-105)
[2020-10-05 18:33] LABS: Add Urine Microscopic? YES; Appearance Urine Clear (Clear); Bacteria Urine Trace /hpf; Bilirubin Urine Negative (Negative); Blood Urine 1+ (Negative); Color Urine Yellow (Yellow); Glucose Urine UA Negative (Negative); Hyaline Casts Urine 15-19 /lpf; Ketones Urine Negative (Negative); Leukocyte Esterase Ur Trace LEU/UL (NEGATIVE); Mucus Urine Rare /lpf; Nitrate Urine Negative (Negative); Protein Urine 1+ mg/dL (Negative); Specific Grav Ur 1.018 (1.001-1.035); Transitional Epi Cells Urine Rare /hpf (None Seen); Urobilinogen Urine Negative mg/dL (<2.0)
[2020-10-05 18:36] LABS: Glucose Point of Care 89 (65-105)
--- NOTE | 2020-10-05 21:33 | PC.NURSE ---
PARAM Pugh notified that the patient is refusing medications and care. Patient refused SCDs, refused to allow RN to listen to his heart or lungs, patient refused breathing treatment. Patient states he just wants to be left alone.
[2020-10-05 22:36] LABS: Glucose Point of Care 80 (65-105)
[2020-10-06 00:01] VITALS: BP 139/67; PULSE 87; RESP 22; TEMP 35.9; O2SAT 96
[2020-10-06 06:00] VITALS: BP 140/74; PULSE 72; RESP 22; TEMP 36.7; O2SAT 99
[2020-10-06 06:29] LABS: Basophils Percent Auto 0.1 % (0.2-1.2); Eosinophils Percent Auto 0.1 % (0-4.4); Hematocrit 34.8 % (42.0-52.0); Hemoglobin 10.2 g/dL (14.0-18.0); Immature Granulocyte Absolute 0.05 K/mm3 (0.00-0.031); Immature Granulocyte Percent A 0.5 % (0-0.5); Lymphocytes Absolute Auto 0.41 K/mm3 (0.9-3.2); Lymphocytes Percent Auto 3.9 % (18.3-44.2); Mean Corpuscular HGB Conc 29.3 g/dl (32-36); Mean Corpuscular Hemoglobin 27.9 pg (26-34); Mean Corpuscular Volume 95.1 fl (80-100); Mean Platelet Volume 11.3 fl (7.4-10.4); Monocytes Absolute Auto 0.8 K/mm3 (0.1-0.6); Monocytes Percent Auto 7.4 % (2.6-8.5); Neutrophils Absolute Auto 9.3 K/mm3 (1.3-6.7); Nucleated Red Blood Cells Perc 0.2 % (0.0-0.2); Platelet Count Result 106 k/mm3 (150-375); Red Blood Count 3.66 M/mm3 (4.6-6.20); Red Cell Distribution Width 17.3 % (11.5-14.5); White Blood Count 10.6 K/mm3 (4.5-10.0)
[2020-10-06 06:45] LABS: Blood Urea Nitrogen 46 mg/dL (9-20); Calcium 8.6 mg/dL (8.4-10.2); Carbon Dioxide > 40 mmol/L (22-30); Chloride 108 mmol/L (98-107); Estimated CRCL calculation 54 ml/min; Estimated Glomerular Filt Rate > 60; Glucose 83 mg/dL (75-110); Potassium 3.7 mmol/L (3.4-5.0); Sodium 152 mmol/L (137-145)
[2020-10-06 06:52] LABS: Glucose Point of Care 80 (65-105)
[2020-10-06 06:53] LABS: Hypochromasia 1+ (NORMAL); Macrocytosis 1+ (NORMAL); Platelet Estimate Adequate (Adequate)
[2020-10-06 06:54] LABS: Ovalocytes 1+ (NORMAL)
[2020-10-06] MEDS: ALBUTEROL SULFATE NEB 2.5 MG/0.5 ML INH INHALATION (08:09)
[2020-10-06 08:10] VITALS: PULSE 63; RESP 18
[2020-10-06 08:23] VITALS: PULSE 65; RESP 18
--- NOTE | 2020-10-06 10:00 | PCPTNOTE ---
Patient refused treatment this session. Encouraged patient to participate in LE exercises and mobility. When covers were removed patient pulled covers back up to shoulders and stated I am not doing it.
--- NOTE | 2020-10-06 10:28 | PCOTNOTE ---
Attempted to see patient for OT, patient asleep upon therapist's entry into room. When woken to ask if patient would like to wash his face or get a little cleaned up, patient shook his head signaling No to therapy. Patient possibly going hospice. Will continue plan of care if appropriate.
[2020-10-06] MEDS: PANTOPRAZOLE SODIUM IV 40 MG VIAL IV PUSH (10:44)
[2020-10-06 11:41] LABS: Hepatitis B Core Ab Total Nonreactive (Nonreactive)
--- NOTE | 2020-10-06 13:25 | PM.DS ---
DS: Summary Time Spent with Patient Time attestation: Total time spent providing and/or coordinating discharge services: DS: Data Data Completed and Pending Labs on day of discharge: Labs from last 24 hours 10/06/20 10/06/20 10/06/20 06:23 05:56 05:56 WBC 10.6 H RBC 3.66 L Hgb 10.2 L Hct 34.8 L MCV 95.1 MCH 27.9 MCHC 29.3 L RDW 17.3 H Plt Count 106 L MPV 11.3 H Immature Gran % (Auto) 0.5 Neut % (Auto) 88.0 H Lymph % (Auto) 3.9 L Bollinger % (Auto) 7.4 Eos % (Auto) 0.1 Baso % (Auto) 0.1 L Lymph # (Auto) 0.41 L Bollinger # (Auto) 0.8 H Eos # (Auto) 0.0 Baso # (Auto) 0.0 Abs Immat Gran (auto) 0.05 H Absolute Neuts (auto) 9.3 H Absolute Nucleated RBC 0.0 Nucleated RBC % 0.2 Platelet Estimate Adequate Hypochromasia 1+ Macrocytosis 1+ Ovalocytes 1+ Puncture Site ABG pH ABG pCO2 ABG pO2 ABG PO2/FiO2 Ratio ABG HCO3 ABG O2 Saturation ABG O2 Content ABG Base Excess A-a Gradient Oxyhemoglobin Total Hemoglobin O2 Delivery Device O2 Liters/Min FiO2 Sodium 152 H Potassium 3.7 Chloride 108 H Carbon Dioxide > 40 H Anion Gap BUN 46 H Creatinine 1.10 Estim Creat Clear Calc 54 Estimated GFR > 60 Glucose 83 POC Capillary Glucose 80 Calcium 8.6 Magnesium 2.0 Urine Color Urine Appearance Urine pH Ur Specific Rogers Urine Protein Urine Glucose (UA) Urine Ketones Ur Blood (Man) Urine Nitrate Urine Bilirubin Urine Urobilinogen Ur Leukocyte Esterase Urine RBC Urine WBC Ur Transition Epith Cell Urine Bacteria Hyaline Casts Urine Mucus Hep B Core Total Ab 10/05/20 10/05/20 10/05/20 22:31 18:33 18:18 WBC RBC Hgb Hct MCV MCH MCHC RDW Plt Count MPV Immature Gran % (Auto) Neut % (Auto) Lymph % (Auto) Bollinger % (Auto) Eos % (Auto) Baso % (Auto) Lymph # (Auto) Bollinger # (Auto) Eos # (Auto) Baso # (Auto) Abs Immat Gran (auto) Absolute Neuts (auto) Absolute Nucleated RBC Nucleated RBC % Platelet Estimate Hypochromasia Macrocytosis Ovalocytes Puncture Site ABG pH ABG pCO2 ABG pO2 ABG PO2/FiO2 Ratio ABG HCO3 ABG O2 Saturation ABG O2 Content ABG Base Excess A-a Gradient Oxyhemoglobin Total Hemoglobin O2 Delivery Device O2 Liters/Min FiO2 Sodium Potassium Chloride Carbon Dioxide Anion Gap BUN Creatinine Estim Creat Clear Calc Estimated GFR Glucose POC Capillary Glucose 80 89 Calcium Magnesium Urine Color Yellow Urine Appearance Clear Urine pH 6.0 Ur Specific Rogers 1.018 Urine Protein 1+ H Urine Glucose (UA) Negative Urine Ketones Negative Ur Blood (Man) 1+ H Urine Nitrate Negative Urine Bilirubin Negative Urine Urobilinogen Negative Ur Leukocyte Esterase Trace H Urine RBC 6-10 H Urine WBC 7-9 H Ur Transition Epith Cell Rare Urine Bacteria Trace Hyaline Casts 15-19 H Urine Mucus Rare Hep B Core Total Ab 10/05/20 10/05/20 10/03/20 16:49 13:42 04:40 WBC RBC Hgb Hct MCV MCH MCHC RDW Plt Count MPV Immature Gran % (Auto) Neut % (Auto) Lymph % (Auto) Bollinger % (Auto) Eos % (Auto) Baso % (Auto) Lymph # (Auto) Bollinger # (Auto) Eos # (Auto) Baso # (Auto) Abs Immat Gran (auto) Absolute Neuts (auto) Absolute Nucleated RBC Nucleated RBC % Platelet Estimate Hypochromasia Macrocytosis Ovalocytes Puncture Site Left radial ABG pH 7.368 ABG pCO2 64.6 H* ABG pO2 57.6 L ABG PO2/FiO2 Ratio 2.22 ABG HCO3 36.3 H ABG O2 Saturation 88.2 L ABG O2 Content 13.7 L ABG Base Excess 9.1 A-a Gradient 51.2 Oxyhemoglobin 86.3 L Total Hemoglo
[2020-10-06 14:00] VITALS: BP 102/71; PULSE 61; RESP 20; TEMP 36.7; O2SAT 91
--- NOTE | 2020-10-06 14:18 | P.DN_ITS ---
Discharge Sum: Prov Provider Primary care physician: Flip Garcia MD Admitting provider: Vishal Read MD Consults: 09/26/20 17:55 Consult to Physician Routine Comment: Consulting Provider: Zion Villalba Reason for consultation: GI bleed Has provider been notified: Yes Consult to Physician Routine Comment: Consulting Provider: Mike Crow Reason for consultation: ICU admission Has provider been notified: Yes 09/27/20 Consult to Physician Routine Comment: EXCHANGE NOTIFIED OF CONSULT Consulting Provider: Yony Rogers call center specialist/MD group to consult: nephrology Reason for consultation: MINAL and acidosis Has provider been notified: Yes 10/03/20 Care Coordination Consult Routine Comment: snf Reason for Consult:: Other 10/06/20 Care Coordination Consult Routine Comment: Hospice Reason for Consult:: Hospice Referral Discharge Sum: Summary Date and Time Date of admission: 09/26/20 17:51 Date of : 10/06/20 Time of : 14:05 Additional Data Attending physician: Vishal Read MD
--- NOTE | 2020-10-06 16:01 | PC.NURSE ---
[facility] here early afternoon and be ready to transfer to hospice care with a new V number when patient at [phone]. New V number cancelled. Dr. Otoole notified of patient expiration
--- NOTE | 2020-10-07 12:12 | DS_ITS ---
This report was moved to the correct visit, [id number] on 11/06/20. Original report was signed by Brenton Simon MD on 10/07/201211. Summary Signed Discharge Sum: Prov Provider Primary care physician: Flip Garcia MD Admitting provider: Brenton Simon MD Discharge Sum: Diag Contributing Factors (1) Shock: (2) Acute kidney injury: (3) Acute respiratory failure: (4) Cirrhosis: (5) GI bleed: (6) MINAL (acute kidney injury): (7) Coronary artery disease: (8) CHF (congestive heart failure): (9) Atrial fibrillation: (10) Chronic anticoagulation: Discharge Sum: Summary Summary Details: patient was admitted for palliative care due to shock multiple medical comorbidities. Medications were titrated comfort. He peacefully. Additional Data Attending physician: Brenton Simon MD This dictation may have been done utilizing a voice recognition system. Attempts have been made to correct errors. However, there may be uncorrected grammatical, spelling, and recognition errors present. Report Initialized date/time: Brenton Simon MD 10/07/201211 Electronically signed by: Brenton Simon MD 10/07/201211 [facility]
[2020-10-09 22:53] LABS: Mitochondrial (M2) Ab (IgG) <=20.0 U (<=20.0)
--- NOTE | 2020-10-23 16:09 | PM.DS ---
DS: Admitting Diagnosis Admitting Diagnosis Admitting Diagnosis: Chief Complaint: Weak, lethargic. Patient was discharged 10/06/20 DS: Discharge Diagnosis Discharge Diagnosis (1) Congestive heart failure: Code(s): I50.9 - Heart failure, unspecified Status: Acute Assessment and Plan: Ejection fraction in February 2020 was about 35%. Clinically he is starting to look volume overloaded. Unable to diurese given hypotension. Patient has declined intubation for airway protection and family agrees with DNR status. BiPAP PRN 10/04/2020 Patient refusing to use BiPAP Unable to transfer to SNF with decreased level of consciousness (2) Chronic anticoagulation: Code(s): Z79.01 - skilled nursing (current) use of anticoagulants Status: Acute Assessment and Plan: No evidence of overt DIC at this time but he does have a coagulopathy with prolonged PT, PTT, and INR. Eliquis and aspirin are on hold. (3) GI bleed: Code(s): K92.2 - Gastrointestinal hemorrhage, unspecified Status: Acute Assessment and Plan: Dark stool was Hemoccult positive in the emergency department. Protonix Ceftriaxone (underlying cirrhosis). Transfuse hemoglobin no > 8 Dr. Villalba (Gastroenterology) consulted. (4) Acute respiratory failure: Code(s): J96.00 - Acute respiratory failure, unspecified whether with hypoxia or hypercapnia Status: Acute Assessment and Plan: BiPAP p.r.n. (5) Acute hypotension: Code(s): I95.9 - Hypotension, unspecified Status: Acute Assessment and Plan: Persistent but with map greater than 65 and asymptomatic with improved renal function (6) MINAL (acute kidney injury): Code(s): N17.9 - Acute kidney failure, unspecified Status: Acute Assessment and Plan: Resolved (7) Shock: Code(s): R57.9 - Shock, unspecified Status: Acute Assessment and Plan: Hypovolemic versus septic shock. Cardiogenic shock is a consideration. EMR shows that he is typically bradycardic in the 50s. Despite aggressive hydration in ED he remained hypotensive, now on norepinephrine and vasopressin. MAP goal of > 65. Lactic acid continues to be elevated around 3.0. No obvious source of underlying infection though urinalysis is still pending. Broad-spectrum antibiotics including vancomycin and ceftriaxone. Blood cultures have been obtained and are pending. 09/30/20 14:25 09/28 patient 85-year-old male with history coronary artery disease status post CABG, systolic congestive heart failure, hypertension hyperlipidemia, atrial fibrillation for which he is taking Eliquis patient was brought to emergency department with generalized weakness he was found to be hypotensive 67/40 and profile anemia with hemoglobin of 5.3 and history rectal bleeding, emergency department patient was started on IV fluid and he recent 3 units of pack RBC however his blood pressure not improving and now on Levophed and vasopressin, CT scan of the abdomen showed liver cirrhosis, hepatitis B and C are negative, patient is given Kcentra to reverse effect of Eliquis, patient is currently on BiPAP unable to provide any review of symptoms he daughter is present in the room, 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 09/28 today patient is off BiPAP on nasal cannula however his too weak to provide any review of symptom, he is on vesopressin and Levophed his blood pressure is improving, after receiving transfusion patient hemoglobin is stable, patient Eliquis and aspirin on hold and Eliquis was reversed, patient is seen by GI recommending EGD and colonoscopy to further evaluate source of bleeding pending consent from the family, patient with liver cirrhosis however hepatitis-B and C are negative, family is contemplating comfort care will continue to monitor and further recommendation to follow. 09/29 today patient is on BiPAP unable to provide review of sy
== END 2020-10-06 14:05 | disposition expired | DRG 377 ==
LOC: ANHED 16:49 → ANHICU 18:40 → ANH3MEDSUR 10-06 13:25 → ANHICU 10-07 16:46
PROVIDERS: Family Medicine; Hospitalist; Internal Medicine; Internal Medicine Critical Care Medicine; Internal Medicine Gastroenterology; Internal Medicine Nephrology; Physician Assistant; Admitting Provider Internal Medicine; Emergency Provider Emergency Medicine; PCP Family Medicine Adolescent Medicine; Visit Provider Family Medicine
PROC: 0DJ08ZZ Inspection of Upper Intestinal Tract, Via Natural or Artificial Opening Endoscopic (ICD-10-PCS; CPT 43235; principal; 2020-10-01 15:45)
DX: K29.01 Acute gastritis with bleeding (principal); N17.0 Acute kidney failure with tubular necrosis; J96.01 Acute respiratory failure with hypoxia; J96.02 Acute respiratory failure with hypercapnia; D61.818 Other pancytopenia; D62 Acute posthemorrhagic anemia; J90 Pleural effusion, not elsewhere classified; E87.2 Acidosis; I13.0 Hypertensive heart and chronic kidney disease with heart failure and stage 1 through stage 4 chronic kidney disease, or unspecified chronic kidney disease; I50.22 Chronic systolic (congestive) heart failure; Z20.822 Contact with and (suspected) exposure to COVID-19; N18.31 Chronic kidney disease, stage 3a; R57.0 Cardiogenic shock; R57.1 Hypovolemic shock; K74.60 Unspecified cirrhosis of liver; R73.03 Prediabetes; I25.10 Atherosclerotic heart disease of native coronary artery without angina pectoris; Z66 Do not resuscitate; K21.9 Gastro-esophageal reflux disease without esophagitis; E78.5 Hyperlipidemia, unspecified; M19.90 Unspecified osteoarthritis, unspecified site; Z86.718 Personal history of other venous thrombosis and embolism; Z79.01 Long term (current) use of anticoagulants; I25.2 Old myocardial infarction; Z95.1 Presence of aortocoronary bypass graft; Z98.42 Cataract extraction status, left eye; Z98.41 Cataract extraction status, right eye; Z95.5 Presence of coronary angioplasty implant and graft
CPT/HCPCS: 32555; 36415; 36430; 36569; 36600; 51702; 70450; 71045; 74176; 76775; 80048; 80053; 80069; 81001; 82375; 82550; 82728; 82805; 82948; 83050; 83520; 83540; 83550; 83605; 83735; 83880; 84100; 84439; 84443; 84480; 84484; 85014; 85018; 85025; 85027; 85055; 85380; 85384; 85610; 85730; 86038; 86140; 86704; 86706; 86803; 86850; 86900; 86901; 86923; 87040; 87340; 92526; 92610; 92611; 93005; 94002; 94003; 94640; 94660; 96360; 97110; 97161; 97165; 97535; 99285; A9270; C1751; C9113; C9132; C9803; J0610; J0696; J1630; J1720; J1815; J1940; J2310; J2354; J2370; J2704; J3370; J7030; J7040; J7050; J7060; J7120; P9016; P9047; U0003; U0005